=== PATIENT | female | born 1930 | race Caucasian/White ===

== ENCOUNTER 2017-11-23 17:54 | Inpatient (IN) | payer MEDICARE ==
[2017-11-23 18:49] LABS: ANION GAP 20 (6-14); BASO # 0.1 x10^3/uL (0.0-0.2); BASO % 0 % (0-3); BLOOD UREA NITROGEN 143 mg/dL (7-20); BUN/CREATININE RATIO 68 (6-20); CALCIUM 8.9 mg/dL (8.5-10.1); CARBON DIOXIDE 13 mmol/L (21-32); CHLORIDE 108 mmol/L (98-107); CREATININE 2.1 mg/dL (0.6-1.0); EOS % 0 % (0-3); GFR 22.4; GLUCOSE 175 mg/dL (70-99); HEMATOCRIT 22.5 % (36.0-47.0); HEMOGLOBIN 7.2 g/dL (12.0-15.5); LYMPH % 4 % (24-48); MEAN CORPUSCULAR HEMOGLOBIN 30 pg (25-35); MEAN CORPUSCULAR HGB CONC 32 g/dL (31-37); MEAN CORPUSCULAR VOLUME 94 fL (79-100); MONO # 0.9 x10^3/uL (0.0-1.1); MONO % 4 % (0-9); NEUT # 23.1 x10^3uL (1.8-7.7); NEUT % 92 % (31-73); PLATELET COUNT 284 x10^3/uL (140-400); POTASSIUM 4.9 mmol/L (3.5-5.1); SODIUM 141 mmol/L (136-145); WHITE BLOOD COUNT 25.2 x10^3/uL (4.0-11.0)
[2017-11-23 18:51] LABS: ADD MAN DIFF? YES
[2017-11-23 18:55] LABS: TROPONINI < 0.017 ng/mL (0.000-0.055)
[2017-11-23 19:03] LABS: ALBUMIN 3.1 g/dL (3.4-5.0); ALBUMIN/GLOBULIN RATIO 0.8 (1.0-1.7); ALK PHOS 188 U/L (46-116); ALT (SGPT) 65 U/L (14-59); AST (SGOT) 37 U/L (15-37); LIPASE 320 U/L (73-393); TOTAL BILIRUBIN 0.2 mg/dL (0.2-1.0); TOTAL PROTEIN 7.1 g/dL (6.4-8.2)
[2017-11-23] MEDS: ACETAMINOPHEN 500 MG TABLET PO (19:05)
[2017-11-23] MEDS: IBUPROFEN 800 MG TABLET. PO (19:06)
[2017-11-23] MEDS ORDERED: PIP/TAZO PER PHARMACY MC (19:15)
[2017-11-23] MEDS: PIPERACILLN-TAZO 2.25GM PREMIX 50 ML IV (19:42)
[2017-11-23 19:44] LABS: INFLUENZA A PATIENT NEGATIVE (NEGATIVE); INFLUENZA B PATIENT NEGATIVE (NEGATIVE); OBC FLU VALID
[2017-11-23 19:46] LABS: BILIRUBIN,URINE NEGATIVE (NEG); CLARITY,URINE CLEAR; COLOR,URINE YELLOW; GLUCOSE,URINE NEGATIVE (NEG); NITRITE,URINE NEGATIVE (NEG); PH,URINE 5.5; PROTEIN,URINE NEGATIVE (NEG-TRACE); UROBILINOGEN,URINE 0.2 mg/dL (0.2 mg/dL)
[2017-11-23 19:56] LABS: BACTERIA,URINE MANY /HPF (0-FEW); HYALINE CASTS, URINE MODERATE /HPF; RBC,URINE 0 /HPF (0-2); SQUAMOUS EPITHELIAL CELL,UR MOD /LPF; WBC,URINE 0 /HPF (0-4)
[2017-11-23 20:03] LABS: % BANDS 6 % (0-9); % MONOS 6 % (0-10); % SEGS 88 % (35-66); PLT ESTIMATE ADEQUATE (ADEQUATE); TOXIC VACUOLATION SLIGHT
[2017-11-23] MEDS: VANCOMYCIN 2 GM in IV DEXTROSE 5 %-0.2 % NACL 500 ML IV (20:25)
[2017-11-23] MEDS ORDERED: fentaNYL PF VIAL 100 MCG/2 ML VIAL IV (20:30)
[2017-11-23] MEDS ORDERED: ONDANSETRON PF 4 MG/2 ML VIAL. IV (20:30)
[2017-11-23 21:06] LABS: FECAL OB PT POSITIVE (NEG); NEG OBC FOB NEG; POS OBC FOB POS
[2017-11-23 23:22] LABS: LACTIC ACID 2.3 mmol/L (0.4-2.0)
[2017-11-24] MEDS: VANCOMYCIN PER PHARMACY MC (02:30)
[2017-11-24] MEDS: PIPERACILLIN/TAZOBACTAM 2.25 GM in IV NORMAL SALINE 50ML 50 ML IV ×3 (05:54→22:53)
[2017-11-24 08:51] LABS: ADD MAN DIFF? NO
[2017-11-24 08:54] LABS: BASO % 0 % (0-3); EOS % 0 % (0-3); LYMPH # 1.2 x10^3/uL (1.0-4.8); LYMPH % 6 % (24-48); MEAN CORPUSCULAR HEMOGLOBIN 31 pg (25-35); MEAN CORPUSCULAR HGB CONC 32 g/dL (31-37); MEAN CORPUSCULAR VOLUME 96 fL (79-100); MONO # 1.3 x10^3/uL (0.0-1.1); MONO % 7 % (0-9); NEUT # 16.7 x10^3uL (1.8-7.7); NEUT % 87 % (31-73); PLATELET COUNT 308 x10^3/uL (140-400); RED BLOOD COUNT 1.91 x10^6/uL (3.50-5.40); WHITE BLOOD COUNT 19.3 x10^3/uL (4.0-11.0)
[2017-11-24 08:58] LABS: HEMOGLOBIN 5.9 g/dL (12.0-15.5)
[2017-11-24 08:59] LABS: HEMATOCRIT 18.4 % (36.0-47.0)
[2017-11-24] MEDS: LACTOBACILLUS RHAMNOSUS GG 1 CAPSULE. PO ×2 (09:12→20:58)
[2017-11-24 09:24] LABS: TROPONINI 0.037 ng/mL (0.000-0.055)
[2017-11-24 09:25] LABS: LACTIC ACID 0.7 mmol/L (0.4-2.0)
[2017-11-24 09:39] LABS: ANION GAP 20 (6-14); BLOOD UREA NITROGEN 145 mg/dL (7-20); CALCIUM 8.8 mg/dL (8.5-10.1); CARBON DIOXIDE 13 mmol/L (21-32); CHLORIDE 111 mmol/L (98-107); CREATININE 2.2 mg/dL (0.6-1.0); GFR 21.2; GLUCOSE 137 mg/dL (70-99); POTASSIUM 4.3 mmol/L (3.5-5.1); SODIUM 144 mmol/L (136-145)
[2017-11-24] MEDS: ACETAMINOPHEN 325 MG TABLET. PO (11:43)
[2017-11-24 12:22] LABS: MRSA BY PCR Negative (Negative)
[2017-11-24 15:44] LABS: IMMEDIATE SPIN CROSSMATCH 1 2
[2017-11-24 15:53] LABS: RETIC COUNT 2.5 % (0.5-2.5)
[2017-11-24] MEDS: PANTOPRAZOLE IV PUSH 40 MG VIAL. IVP (18:04)
[2017-11-24 19:30] LABS: % SAT IRON 45 % (15-34); IRON,SERUM 110 ug/dL (50-170)
[2017-11-24 19:52] LABS: FOLATE 4.02 ng/ml (3.2-20.0)
[2017-11-24 19:52] LABS: VITAMIN-B12 394 pg/mL (247-911)
[2017-11-24 21:57] LABS: HEMATOCRIT 26.3 % (36.0-47.0); HEMOGLOBIN 8.8 g/dL (12.0-15.5); MEAN CORPUSCULAR HGB CONC 34 g/dL (31-37)
[2017-11-25] MEDS: PIPERACILLIN/TAZOBACTAM 2.25 GM in IV NORMAL SALINE 50ML 50 ML IV ×3 (05:18→22:06)
[2017-11-25 05:23] LABS: ADD MAN DIFF? NO
[2017-11-25 05:45] LABS: BASO % 0 % (0-3); EOS % 0 % (0-3); HEMATOCRIT 26.6 % (36.0-47.0); HEMOGLOBIN 8.9 g/dL (12.0-15.5); LYMPH # 1.4 x10^3/uL (1.0-4.8); LYMPH % 8 % (24-48); MEAN CORPUSCULAR HEMOGLOBIN 31 pg (25-35); MEAN CORPUSCULAR HGB CONC 34 g/dL (31-37); MEAN CORPUSCULAR VOLUME 92 fL (79-100); MONO # 1.4 x10^3/uL (0.0-1.1); MONO % 9 % (0-9); NEUT % 83 % (31-73); PLATELET COUNT 252 x10^3/uL (140-400); RED BLOOD COUNT 2.88 x10^6/uL (3.50-5.40); RED CELL DISTRIBUTION WIDTH 15.3 % (11.5-14.5); WHITE BLOOD COUNT 16.9 x10^3/uL (4.0-11.0)
[2017-11-25 06:19] LABS: ALBUMIN 2.8 g/dL (3.4-5.0); ALBUMIN/GLOBULIN RATIO 0.8 (1.0-1.7); ALK PHOS 165 U/L (46-116); ALT (SGPT) 117 U/L (14-59); ANION GAP 21 (6-14); AST (SGOT) 102 U/L (15-37); BLOOD UREA NITROGEN 129 mg/dL (7-20); BUN/CREATININE RATIO 59 (6-20); CALCIUM 8.3 mg/dL (8.5-10.1); CARBON DIOXIDE 14 mmol/L (21-32); CHLORIDE 110 mmol/L (98-107); CREATININE 2.2 mg/dL (0.6-1.0); GFR 21.2; GLUCOSE 106 mg/dL (70-99); POTASSIUM 3.4 mmol/L (3.5-5.1); SODIUM 145 mmol/L (136-145); TOTAL BILIRUBIN 0.4 mg/dL (0.2-1.0); TOTAL PROTEIN 6.4 g/dL (6.4-8.2)
[2017-11-25] MEDS ORDERED: PROPOFOL 20 ML IV (07:22)
[2017-11-25] MEDS: PANTOPRAZOLE IV PUSH 40 MG VIAL. IVP ×2 (09:26→21:50)
[2017-11-25] MEDS: LACTOBACILLUS RHAMNOSUS GG 1 CAPSULE. PO ×2 (09:26→21:49)
[2017-11-25] MEDS: IV RINGERS,LACTATED 1000ML 1,000 ML IV (09:30)
[2017-11-25] MEDS ORDERED: ONDANSETRON PF 4 MG/2 ML VIAL. IV (12:15)
[2017-11-25] MEDS ORDERED: MAGNESIUM SULFATE 2GM 50 ML IV (13:15)
[2017-11-25] MEDS: POTASSIUM ACETATE IV (15:24)
[2017-11-25] MEDS: 1/2 NORMAL SALINE IV (15:24)
[2017-11-25] MEDS: ACETAMINOPHEN 500 MG TABLET PO (15:32)
[2017-11-25] MEDS ORDERED: VANCOMYCIN 1.25 GM in IV DEXTROSE 5 %-0.45 % NACL 500 ML IV (20:00)
[2017-11-25] MEDS: AMOXICILLIN/K CLAV 500/125MG TABLET. PO (21:49)
[2017-11-26] MEDS: POTASSIUM ACETATE IV ×2 (04:19→17:49)
[2017-11-26] MEDS: 1/2 NORMAL SALINE IV ×2 (04:19→17:49)
[2017-11-26] MEDS: PIPERACILLIN/TAZOBACTAM 2.25 GM in IV NORMAL SALINE 50ML 50 ML IV (06:25)
[2017-11-26 07:08] LABS: MAGNESIUM 2.5 mg/dL (1.8-2.4)
[2017-11-26 07:10] LABS: HEMOGLOBIN 8.2 g/dL (12.0-15.5)
[2017-11-26 07:12] LABS: ALBUMIN 2.6 g/dL (3.4-5.0); ANION GAP 13 (6-14); BLOOD UREA NITROGEN 78 mg/dL (7-20); CALCIUM 8.3 mg/dL (8.5-10.1); CARBON DIOXIDE 21 mmol/L (21-32); CHLORIDE 116 mmol/L (98-107); CREATININE 1.6 mg/dL (0.6-1.0); GFR 30.6; GLUCOSE 100 mg/dL (70-99); PHOSPHORUS 3.7 mg/dL (2.6-4.7); POTASSIUM 3.4 mmol/L (3.5-5.1); SODIUM 150 mmol/L (136-145)
[2017-11-26] MEDS: ACETAMINOPHEN 500 MG TABLET PO ×2 (08:49→14:31)
[2017-11-26] MEDS: LACTOBACILLUS RHAMNOSUS GG 1 CAPSULE. PO ×2 (08:50→20:49)
[2017-11-26] MEDS: AMOXICILLIN/K CLAV 500/125MG TABLET. PO ×2 (08:50→20:49)
[2017-11-26] MEDS: PANTOPRAZOLE IV PUSH 40 MG VIAL. IVP ×2 (08:50→20:50)
[2017-11-26 14:19] LABS: ALBUMIN 2.5 g/dL (3.4-5.0); ALK PHOS 155 U/L (46-116); ALT (SGPT) 91 U/L (14-59); AST (SGOT) 58 U/L (15-37); DIRECT BILIRUBIN 0.2 mg/dL (0.0-0.2); TOTAL BILIRUBIN 0.4 mg/dL (0.2-1.0)
[2017-11-27] MEDS: POTASSIUM ACETATE IV ×2 (03:57→14:02)
[2017-11-27] MEDS: 1/2 NORMAL SALINE IV ×2 (03:57→14:02)
[2017-11-27 06:36] LABS: ALBUMIN 2.4 g/dL (3.4-5.0); ANION GAP 13 (6-14); BLOOD UREA NITROGEN 44 mg/dL (7-20); CALCIUM 8.1 mg/dL (8.5-10.1); CARBON DIOXIDE 22 mmol/L (21-32); CHLORIDE 110 mmol/L (98-107); CREATININE 1.1 mg/dL (0.6-1.0); GFR 47.2; GLUCOSE 93 mg/dL (70-99); PHOSPHORUS 3.1 mg/dL (2.6-4.7); POTASSIUM 3.4 mmol/L (3.5-5.1); SODIUM 145 mmol/L (136-145)
[2017-11-27] MEDS: LACTOBACILLUS RHAMNOSUS GG 1 CAPSULE. PO ×2 (08:01→20:12)
[2017-11-27] MEDS: PANTOPRAZOLE IV PUSH 40 MG VIAL. IVP ×2 (08:01→20:17)
[2017-11-27] MEDS: AMOXICILLIN/K CLAV 500/125MG TABLET. PO ×2 (08:01→20:12)
[2017-11-27] MEDS: ACETAMINOPHEN 500 MG TABLET PO (08:01)
[2017-11-27] MEDS: POTASSIUM CHLORIDE 20 MEQ/15 ML ORAL LIQUID. PEG (20:13)
[2017-11-28 05:13] LABS: ALBUMIN 2.7 g/dL (3.4-5.0); ANION GAP 12 (6-14); CALCIUM 8.9 mg/dL (8.5-10.1); CARBON DIOXIDE 27 mmol/L (21-32); CHLORIDE 109 mmol/L (98-107); GFR 52.7; GLUCOSE 120 mg/dL (70-99); PHOSPHORUS 2.8 mg/dL (2.6-4.7); POTASSIUM 3.6 mmol/L (3.5-5.1); SODIUM 148 mmol/L (136-145)
[2017-11-28 05:16] LABS: BLOOD UREA NITROGEN 21 mg/dL (7-20)
[2017-11-28 07:41] LABS: HEMATOCRIT 24.9 % (36.0-47.0); HEMOGLOBIN 8.5 g/dL (12.0-15.5); MEAN CORPUSCULAR HGB CONC 34 g/dL (31-37)
[2017-11-28] MEDS: POTASSIUM CHLORIDE 20 MEQ/15 ML ORAL LIQUID. PEG (08:07)
[2017-11-28] MEDS: LACTOBACILLUS RHAMNOSUS GG 1 CAPSULE. PO (08:08)
[2017-11-28] MEDS: AMOXICILLIN/K CLAV 500/125MG TABLET. PO (08:08)
[2017-11-28] MEDS: PANTOPRAZOLE IV PUSH 40 MG VIAL. IVP (08:09)
[2017-11-29] MEDS ORDERED: PANTOPRAZOLE 40 MG TABLET.DR. PO (07:30)
== END 2017-11-28 15:10 | DRG 871 ==
LOC: ER 17:54 → 5 NORTH 20:21
PROC: 0DD68ZX Extraction of Stomach, Via Natural or Artificial Opening Endoscopic, Diagnostic (ICD-10-PCS; principal; 2017-11-25 07:33)
PROC: 0DD58ZX Extraction of Esophagus, Via Natural or Artificial Opening Endoscopic, Diagnostic (ICD-10-PCS; 2017-11-25 07:33)
PROC: 30233N1 Transfusion of Nonautologous Red Blood Cells into Peripheral Vein, Percutaneous Approach (ICD-10-PCS; 2017-11-25 07:33)
DX: A41.9 Sepsis, unspecified organism (principal); G93.41 Metabolic encephalopathy; N17.9 Acute kidney failure, unspecified; G82.20 Paraplegia, unspecified; K26.9 Duodenal ulcer, unspecified as acute or chronic, without hemorrhage or perforation; I50.32 Chronic diastolic (congestive) heart failure; D62 Acute posthemorrhagic anemia; I13.0 Hypertensive heart and chronic kidney disease with heart failure and stage 1 through stage 4 chronic kidney disease, or unspecified chronic kidney disease; N39.0 Urinary tract infection, site not specified; E86.0 Dehydration; K29.70 Gastritis, unspecified, without bleeding; K44.9 Diaphragmatic hernia without obstruction or gangrene; B96.1 Klebsiella pneumoniae [K. pneumoniae] as the cause of diseases classified elsewhere; F03.90 Unspecified dementia, unspecified severity, without behavioral disturbance, psychotic disturbance, mood disturbance, and anxiety; K21.0 Gastro-esophageal reflux disease with esophagitis; K22.70 Barrett's esophagus without dysplasia; F32.9 Major depressive disorder, single episode, unspecified; G83.9 Paralytic syndrome, unspecified; M19.90 Unspecified osteoarthritis, unspecified site; M41.9 Scoliosis, unspecified; N18.9 Chronic kidney disease, unspecified; Z66 Do not resuscitate; Z83.3 Family history of diabetes mellitus; Z99.3 Dependence on wheelchair
CPT/HCPCS: 36415; 36430; 70450; 71045; 76770; 80048; 80053; 80069; 80076; 81001; 82274; 82607; 82746; 83540; 83550; 83605; 83690; 83735; 84484; 85007; 85014; 85018; 85025; 85045; 86850; 86900; 86901; 86920; 87040; 87086; 87186; 87641; 87804; 87804-59; 88305; 88342; 93005; 93306; 96365; 96368; 99285-25; C9113; J2543; J2704; J3370; P9016

== ENCOUNTER 2020-05-19 00:58 | Inpatient (IN) | payer MEDICARE, MEDICAID ==
[~2020-05-19] VITALS: Ht 157.5 cm; Wt 95.2 kg
[2020-05-19] VITALS (7 sets, daily range): BP systolic 120–152; BP diastolic 74–80
[~2020-05-19 00:58] MED LIST: ACET325T9 PO; ACET325T9 RC; ASPI-630 PO; BACL10TA PO; BIMA2.5D EACHEYE; Baclofen PO; CARB200T PO; CLON0.1T PO; CLON0.1T12 PO; DEXT15DR5 EACHEYE; DOCU-109 PO; DOCU100C28 PO; FAMO-63 PO; FERR325T14 PO; FERR325T72 PO; FURO40TA4 PO; IBUP100O25 PO; IPRA3AMP29 NEB; LEVE250T30 PO; LEVE500T56 PO; LOSA1TAB22 PO; METO25TA4 PO; MULT-445 PO; ONDA4TAB10 PO; ONDA4TAB7 PO; POLY17PO29 PO; POTA10TA12 PO; RANI150C PO; TRAZ-118 PO
--- NOTE | 2020-05-19 01:13 | PHYS DOC ---
Past Medical History Past Medical History: Anemia, Anxiety, Arthritis, CHF, Constipation, COPD, Depression, GERD, Hypertension, Seizure Additional Past Medical Histor: spastic paralysis HEMIPLEGIA, HEART FAILURE, DYSPHAGIA, OSTEOARTHRITIS Past Surgical History: Other Additional Past Surgical Histo: UNKNOWN Smoking Status: Never Smoker Alcohol Use: None Drug Use: None General Adult EDM: Chief Complaint: UPPER EXTREMITY PAIN HPI: HPI: Patient is a 89 year old female who presents to the ED with right shoulder pain. Unkonwn mechanism according to patient and EMS but Xray obtained at [facility] and found to have a shoulder dislocation on the right. Patient has pain associated with the right shoulder and has limited range of motion. She denies any other complaints at this time. Review of Systems: Review of Systems: Constitutional: Denies fever or chills. [] Eyes: Denies change in visual acuity. [] HENT: Denies nasal congestion or sore throat. [] Respiratory: Denies cough or shortness of breath. [] Cardiovascular: Denies chest pain or edema. [] GI: Denies abdominal pain, nausea, vomiting, bloody stools or diarrhea. [] : Denies dysuria. [] Musculoskeletal: Denies back pain or joint pain. [] Integument: Denies rash. [] Neurologic: Denies headache, focal weakness or sensory changes. [] Endocrine: Denies polyuria or polydipsia. [] Lymphatic: Denies swollen glands. [] Psychiatric: Denies depression or anxiety. [] Heart Score: Risk Factors: Risk Factors: DM, Current or recent (<one month) smoker, HTN, HLP, family history of CAD, obesity. 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 HENT: Normocephalic, atraumatic, bilateral external ears normal, oropharynx moist, no oral exudates, nose normal. [] Eyes: PERRLA, EOMI, conjunctiva normal, no discharge. [] Neck: Normal range of motion, no tenderness, supple, no stridor. [] Cardiovascular:Heart rate regular rhythm, no murmur [] Lungs & Thorax: Bilateral breath sounds clear to auscultation [] Abdomen: Bowel sounds normal, soft, no tenderness, no masses, no pulsatile masses. [] Skin: Warm, dry, no erythema, no rash. [] Back: No tenderness, no CVA tenderness. [] Extremities: Range of motion limited in the right shoulder. Mild deformity and tenderness palpation over the right deltoid. Distal 2+ pulses. EKG: EKG: [] Radiology/Procedures: Radiology/Procedures: [] Course & Med Decision Making: Course & Med Decision Making Pertinent Labs and Imaging studies reviewed. (See chart for details) [] I performed an x-ray here to confirm dislocation. The shoulder is certainly dislocated and the patient has severe pain make me think this is acute. Unknown how this occurred. We will contact the patient's power of mergers and acquisitions attorney to get consent for sedation and reduction of the shoulder. I attempted shoulder reduction in the ER with moderate sedation with propofol. Unfortunately we are unable to reduce the shoulder. I used traction countertraction method. Patient did have adequate sedation. Unclear reason why the shoulder would not be reduced. Starting to question whether there is a chronic component to this dislocation but cannot verify that. Patient will need to be placed in observation and have an orthopedic consultation in the morning. Bahman Disclaimer: Bahman Disclaimer: This electronic medical record was generated, in whole or in part, using a voice recognition dictation system. Departure Departure Impression: Primary Impression: Shoulder dislocation Disposition: ADMITTED INPATIENT Condition: STABLE Referrals: SONI MAYS (PCP) Justicifation of Admission Dx: Justifications for Admission: Justification of Admission Dx: Yes Comments: shoulder dislocation unable to be reduced by ED physician. Procedural Sedation Proc Sed Indication:shoulder reduction Consent: I have discussed with the patient and/or the patient parts counter representative the indication, alternatives, and the possible risks and /or complications of the planned procedure and the anesthesia methods. The patient and/or patient parts counter representative appear to understand and agree to proceed. Pre-Sedation Documentation and Exam: See main note. History and physical performed immediately prior to procedure. Patient with a shoulder deformity on the right. Lungs clear to auscultation bilaterally. Heart regular rate and rhythm. Airway Assessment: normal. Prior History of Anesthesia Complications: none. ASA Classification: 3 Sedation/ Anesthesia Plan: Propofol moderate sedation Medications Used: see nursing notes. Monitoring and Safety: The patient was placed on a cardiac monitor technician and vital signs, pulse oximetry and level of consciousness were continuously evaluated throughout the procedure. The patient was closely monitored until recovery from the medications was complete and the patient had returned to baseline status. Respiratory therapy was on standby at all times during the procedure. (The following sections must be completed) Post-Sedation Vital Signs: Heart rate 104 blood pressure 159/78, respirations 17 Post-Sedation Exam: Patient is awake and alert. Lungs clear to auscultation bilaterally. Complications: none. Vital Signs Vital Signs Date Time Temp Pulse Resp B/P (MAP) Pulse Ox O2 Delivery O2 Flow Rate FiO2 05/19/20 01:15 98.7 108 20 140/83 (102) 96 Room Air 98.7 YONATHAN OCASIO DO May 19, 2020 01:13
[2020-05-19] MEDS ORDERED: fentaNYL PF VIAL 100 MCG/2 ML VIAL IM ONE (01:15)
--- NOTE | 2020-05-19 01:36 | RAD ---
Right shoulder 2 views: Reason for examination: Dislocation. There is dislocation of the humeral head anteriorly and inferiorly from the glenoid. No acute fracture is apparent. No abnormal periosteal reaction is seen. IMPRESSION: Anterior dislocation of the right humeral head from the glenoid with no apparent fractures seen. Electronically signed by: Alfreda Celeste MD (05/19/2020 1:33 AM) [id number]
[2020-05-19] MEDS ORDERED: PROPOFOL 10 MG/ML (20ML) VIAL. IV ONE (01:45)
--- NOTE | 2020-05-19 02:22 | RAD ---
Right shoulder single AP view at 0205: Reason for examination: Post reduction of anterior dislocation. Comparison is made to previous study dated 05/19/2020 at 0110. There continues to be anterior dislocation of the humeral head from the glenoid. No acute fracture is seen. IMPRESSION: Humeral head remains dislocated anterior and inferiorly from the glenoid. Electronically signed by: Alfreda Celeste MD (05/19/2020 2:19 AM) [id number]
[2020-05-19] MEDS ORDERED: fentaNYL PF VIAL 100 MCG/2 ML VIAL IVP ONE (02:30)
[2020-05-19] MEDS ORDERED: fentaNYL PF VIAL 100 MCG/2 ML VIAL IV PRN (02:30)
[2020-05-19 02:47] LABS: BASO % 0 % (0-3); EOS % 0 % (0-3); HEMATOCRIT 38.1 % (36.0-47.0); HEMOGLOBIN 12.9 g/dL (12.0-15.5); LYMPH # 0.5 x10^3/uL (1.0-4.8); LYMPH % 5 % (24-48); MEAN CORPUSCULAR HEMOGLOBIN 31 pg (25-35); MEAN CORPUSCULAR HGB CONC 34 g/dL (31-37); MEAN CORPUSCULAR VOLUME 92 fL (79-100); MONO # 0.6 x10^3/uL (0.0-1.1); MONO % 6 % (0-9); NEUT % 89 % (31-73); PLATELET COUNT 178 x10^3/uL (140-400); RED BLOOD COUNT 4.16 x10^6/uL (3.50-5.40); RED CELL DISTRIBUTION WIDTH 14.4 % (11.5-14.5)
[2020-05-19 02:57] LABS: CALCIUM 8.8 mg/dL (8.5-10.1); CREATININE 1.4 mg/dL (0.6-1.0); GFR 35.5; POTASSIUM 3.8 mmol/L (3.5-5.1)
[2020-05-19 03:03] LABS: ALBUMIN 3.4 g/dL (3.4-5.0); ALBUMIN/GLOBULIN RATIO 0.8 (1.0-1.7); TOTAL BILIRUBIN 0.5 mg/dL (0.2-1.0); TOTAL PROTEIN 7.7 g/dL (6.4-8.2)
--- NOTE | 2020-05-19 04:10 | NUR ---
The patient, OBDULIA HERNÁNDEZ, 89 y/o, F admitted by STEFAN DORADO MD, was given written information regarding hospital policies, unit procedures and contact persons. patient arrived to room via ED bed assisted by ED staff member. Valuables were checked and noted. patient is currently laying in bed with eyes closed. patient states that her pain is about a 2 when not moving but will increase with movement. Patient denies need for pain medication at this time. Patient denies any other needs at this time. This RN will continue to monitor the patient at this time.
[2020-05-19 05:01] LABS: % BANDS 3 % (0-9); % LYMPHS 2 % (24-48); % MONOS 4 % (0-10); % SEGS 91 % (35-66)
[2020-05-19 05:02] LABS: PLT ESTIMATE ADEQUATE (ADEQUATE)
[2020-05-19] MEDS ORDERED: FERR325T14 PO (05:17)
[2020-05-19] MEDS ORDERED: FURO40TA4 PO (05:17)
[2020-05-19] MEDS ORDERED: POLYETHYLENE GLYCOL 3350 17 GM PACKET. PO PRN (06:15)
[2020-05-19] MEDS ORDERED: ACETAMINOPHEN 325 MG TABLET. PO PRN (06:15)
[2020-05-19] MEDS ORDERED: ONDANSETRON PF 4 MG/2 ML VIAL. IV PRN (06:15)
[2020-05-19] MEDS: carBAMazepine 200 MG TABLET PO SCH ×3 (08:30→21:48)
[2020-05-19] MEDS: levETIRAcetam 250 MG TABLET PO SCH ×2 (08:31→21:48)
[2020-05-19] MEDS: POLYVINYL ALCOHOL 1.4% OPHTH SOLUTION 15ML BOTTLE. OU SCH ×3 (08:31→21:48)
[2020-05-19] MEDS: MULTIVITAMIN with MINERAL TABLET. PO SCH (09:00)
--- NOTE | 2020-05-19 12:34 | PDOC ---
[facility] PROGRESS NOTE Chief Complaint Chief Complaint shoulder dislocation History of Present Illness History of Present Illness shoulder dislocation unable to be reduced by ED physician Aniket 19 pending COPD Hypertension Anemia CHF Osteoarthritis GERD Anxiety Depression Seizures 05/19/20 Patient seen and examined, appears confused Chart reviewed Discussed with RN Vitals/I&O Vitals/I&O: Vital Signs Date Time Temp Pulse Resp B/P (MAP) Pulse Ox O2 Delivery O2 Flow Rate FiO2 05/19/20 11:19 97.1 95 17 120/80 (93) 94 Room Air 97.1 05/19/20 02:15 3.0 I & O 05/18/20 05/18/20 05/19/20 15:00 23:00 07:00 Intake Total 0 ml Output Total 0 ml Balance 0 ml Physical Exam General: mild distress, Other (appears confused ) Heart: Regular rate, Normal S1, Normal S2 Lungs: Clear Abdomen: Soft, No tenderness Extremities: No edema, Normal pulses Skin: No rashes, No significant lesion Labs Labs: Laboratory Tests Test 05/19/20 02:36 05/19/20 03:08 White Blood Count 10.0 x10^3/uL (4.0-11.0) Red Blood Count 4.16 x10^6/uL (3.50-5.40) Hemoglobin 12.9 g/dL (12.0-15.5) Hematocrit 38.1 % (36.0-47.0) Mean Corpuscular Volume 92 fL (79-100) Mean Corpuscular Hemoglobin 31 pg (25-35) Mean Corpuscular Hemoglobin Concent 34 g/dL (31-37) Red Cell Distribution Width 14.4 % (11.5-14.5) Platelet Count 178 x10^3/uL (140-400) Neutrophils (%) (Auto) 89 % (31-73) Lymphocytes (%) (Auto) 5 % (24-48) Monocytes (%) (Auto) 6 % (0-9) Eosinophils (%) (Auto) 0 % (0-3) Basophils (%) (Auto) 0 % (0-3) Neutrophils # (Auto) 9.0 x10^3/uL (1.8-7.7) Lymphocytes # (Auto) 0.5 x10^3/uL (1.0-4.8) Monocytes # (Auto) 0.6 x10^3/uL (0.0-1.1) Eosinophils # (Auto) 0.0 x10^3/uL (0.0-0.7) Basophils # (Auto) 0.0 x10^3/uL (0.0-0.2) Segmented Neutrophils % 91 % (35-66) Band Neutrophils % 3 % (0-9) Lymphocytes % 2 % (24-48) Monocytes % 4 % (0-10) Platelet Estimate Adequate (ADEQUATE) Prothrombin Time 14.0 SEC (11.7-14.0) Prothromb Time International Ratio 1.1 (0.8-1.1) Activated Partial Thromboplast Time 48 SEC (24-38) Sodium Level 142 mmol/L (136-145) Potassium Level 3.8 mmol/L (3.5-5.1) Chloride Level 104 mmol/L (98-107) Carbon Dioxide Level 25 mmol/L (21-32) Anion Gap 13 (6-14) Blood Urea Nitrogen 23 mg/dL (7-20) Creatinine 1.4 mg/dL (0.6-1.0) Estimated GFR (Cockcroft-Gault) 35.5 BUN/Creatinine Ratio 16 (6-20) Glucose Level 153 mg/dL (70-99) Calcium Level 8.8 mg/dL (8.5-10.1) Total Bilirubin 0.5 mg/dL (0.2-1.0) Aspartate Amino Transf (AST/SGOT) 63 U/L (15-37) Alanine Aminotransferase (ALT/SGPT) 65 U/L (14-59) Alkaline Phosphatase 161 U/L (46-116) Total Protein 7.7 g/dL (6.4-8.2) Albumin 3.4 g/dL (3.4-5.0) Albumin/Globulin Ratio 0.8 (1.0-1.7) SARS-CoV-2 Antigen (Rapid) Negative (NEGATIVE) Assessment and Plan Assessmemt and Plan Problems Medical Problems: (1) Shoulder dislocation Status: Acute Assessment: shoulder dislocation unable to be reduced by ED physician Covid 19 pending COPD Hypertension Anemia CHF Osteoarthritis GERD Anxiety Depression Seizures Plan: Ortho consulted Continue current care Fentanyl PRN for pain Continue home meds DVT prophylaxis DNR Comment Review of Relevant I have reviewed the following items frederic (where applicable) has been applied. Medications: Current Medications Medications (Trade) Dose Ordered Sig/Cherise Route PRN Reason Start Time Stop Time Status Last Admin Dose Admin Fentanyl Citrate (Fentanyl 2ml Vial) 50 mcg 1X ONCE IM 05/19/20 01:15 05/19/20 01:17 DC 05/19/20 01:42 Propofol (Diprivan) 200 mg 1X ONCE IV 05/19/20 01:45 05/19/20 01:46 DC 05/19/20 02:28 Fentanyl Citrate (Fentanyl 2ml Vial) 50 mcg 1X ONCE IVP 05/19/20 02:30 05/19/20 02:55 DC 05/19/20 02:27 Carbamazepine (TEGretol) 100 mg TID PO 05/19/20 09:00 05/19/20 08:30 Levetiracetam (Keppra) 250 mg BID PO 05/19/20 09:00 05/19/20 08:31 Artificial Tears (Artificial Tears) 1 drop TID OU 05/19/20 09:00 05/19/20 08:31 Justicifation of Admission Dx: Justifications for Admission: Justification of Admission Dx: Yes BRITNI MARTINEZ III DO May 19, 2020 12:34
--- NOTE | 2020-05-19 12:48 | HP ---
ADMIT DATE: 05/19/2020 CHIEF COMPLAINT: Upper extremity pain. HISTORY OF PRESENT ILLNESS: The patient is a pleasant 89-year-old female who presents to the ER with right shoulder pain. Unknown mechanism of injury. [facility] that [facility] in the prison found that she had a right shoulder dislocation. I discussed the case with ER physician. We have admitted the patient. We are going to be consulting Orthopedics. PAST MEDICAL HISTORY: Anemia, anxiety, arthritis, CHF, constipation, COPD, GERD, depression, hypertension, seizures, osteoarthritis, hemiplegia, heart failure. ALLERGIES: GRAPEFRUITS, [place], [place], AND ORANGE. FAMILY HISTORY: Coronary artery disease. SOCIAL HISTORY: She lives in a prison, does not drink, smoke or take drugs. MEDICATIONS: Reviewed, please refer to the MRAD. REVIEW OF SYSTEMS: GENERAL: No history of weight change, weakness or fevers. SKIN: No bruising, hair changes or rashes. EYES: No blurred, double or loss of vision. NOSE AND THROAT: No history of nosebleeds, hoarseness or sore throat. HEART: No history of palpitations, chest pain or shortness of breath on exertion. LUNGS: Denies cough, hemoptysis, wheezing or shortness of breath. GASTROINTESTINAL: Denies changes in appetite, nausea, vomiting, diarrhea or constipation. GENITOURINARY: No history of frequency, urgency, hesitancy or nocturia. NEUROLOGIC: Denies history of numbness, tingling, tremor or weakness. PSYCHIATRIC: No history of panic, anxiety or depression. ENDOCRINE: No history of heat or cold intolerance, polyuria or polydipsia. EXTREMITIES: She complains of right shoulder pain. PHYSICAL EXAMINATION: VITALS: Within normal limits and are stable. GENERAL: No apparent distress. Alert and oriented. HEENT: Normal cephalic atraumatic, external auditory canals are patent EYES: Extraocular muscles are intact, pupils are equally round and reactive to light and accommodation MUSCULOSKELETAL: Well developed, well nourished, good range of motion ENDOCRINE: No thyromegaly was palpated LYMPHATICS: No cervical chain or axillary nodes were noted HEMATOPOIETIC: No bruising NECK: Supple, no JVD, no thyromegaly was noted. LUNGS: Clear to auscultation in all lung dickey without rhonchi or wheezing. HEART: RRR, S1, S2 present. Peripheral pulses intact, no obvious murmurs were noted. ABDOMEN: Soft, nontender. Positive bowel sounds no organomegaly, normal bowel sounds. EXTREMITIES: Without any cyanosis, clubbing, or edema. Pedal pulses intact, Homans sign is negative. NEUROLOGIC: Normal speech, normal tone. A & O x3, moves all extremities, no obvious focal deficits. PSYCHIATRIC: Normal affect, normal mood. Stable. SKIN: No ulcerations or rashes, good skin turgor, no jaundice. VASCULAR: Good capillary refill, neurovascular bundle appears to be intact. ASSESSMENT AND PLAN: Right shoulder dislocation. The patient has been admitted. Consult Orthopedics. Home meds, deep venous thrombosis prophylaxis. Full COVID, rule out COVID-19. BRITNI MARTINEZ DO DR: JEFF/ramakrishna JOB#: [id number] / [id number]
--- NOTE | 2020-05-19 17:35 | NUR ---
SW following. Reviewed chart and spoke with RN and CM. Pt on room air. SW attempted to call into pt's room, no answer. Pt on IV Fentanyl. Pt has a rehab screen. LVM for rehab to coordinate care. SW to follow.
[2020-05-19] MEDS: LATANOPROST 0.005% OPHTH SOLUTION 2.5ML BOTTLE. OU SCH (21:48)
[2020-05-20 02:53] VITALS: BP 151/79
[2020-05-20] MEDS ORDERED: IV RINGERS,LACTATED 1000ML 1,000 ML IV SCH (07:06)
[2020-05-20 07:14] VITALS: BP 140/62
[2020-05-20] MEDS ORDERED: MORPHINE SULFATE 2 MG/ML VIAL. IVP PRN (07:15)
[2020-05-20] MEDS ORDERED: fentaNYL PF VIAL 100 MCG/2 ML VIAL IVP PRN ×2 (07:15)
[2020-05-20] MEDS ORDERED: PROCHLORPERAZINE 10 MG/2 ML VIAL. IVP PRN (07:15)
[2020-05-20] MEDS ORDERED: LIDOCAINE 1% PF 2 ML VIAL. ID PRN (07:15)
[2020-05-20] MEDS ORDERED: HYDROmorphone 2 MG/ML VIAL IVP PRN (07:15)
[2020-05-20] MEDS ORDERED: ONDANSETRON PF 4 MG/2 ML VIAL. IVP PRN (07:15)
[2020-05-20] MEDS: levETIRAcetam 250 MG TABLET PO SCH ×3 (09:00→21:00)
[2020-05-20] MEDS: carBAMazepine 200 MG TABLET PO SCH ×3 (09:00→21:00)
[2020-05-20] MEDS: MULTIVITAMIN with MINERAL TABLET. PO SCH (09:00)
--- NOTE | 2020-05-20 09:59 | NUR ---
SW following. Spoke with RN and reviewed chart. Pt from [facility], , (fax). IVETH LVM for Roseanna the SW Director to coordinate care. PT saw this pt and pt at baseline. Pt on room air and IV pain medications. Pt to return to LTC when stable. SW to follow.
[2020-05-20] MEDS: POLYVINYL ALCOHOL 1.4% OPHTH SOLUTION 15ML BOTTLE. OU SCH ×3 (10:10→21:00)
[2020-05-20] MEDS: LATANOPROST 0.005% OPHTH SOLUTION 2.5ML BOTTLE. OU SCH (10:10)
[2020-05-20 11:07] VITALS: BP 158/59
--- NOTE | 2020-05-20 11:23 | PDOC ---
[facility] PROGRESS NOTE Chief Complaint Chief Complaint Shoulder dislocation History of Present Illness History of Present Illness 05/20/2020 Patient seen and examined Chart reviewed Discussed with RN 05/19/20 Patient seen and examined, appears confused Chart reviewed Discussed with RN Shoulder dislocation unable to be reduced by ED physician Aniket Moran pending COPD Hypertension Anemia CHF Osteoarthritis GERD Anxiety Depression Seizures Vitals/I&O Vitals/I&O: Vital Signs Date Time Temp Pulse Resp B/P (MAP) Pulse Ox O2 Delivery O2 Flow Rate FiO2 05/20/20 11:07 97.3 100 21 158/59 (92) 99 Nasal Cannula 2.0 97.3 I & O 05/19/20 05/19/20 05/20/20 14:59 22:59 06:59 Intake Total 0 ml Output Total 0 ml Balance 0 ml 0 ml Physical Exam General: Alert, Oriented X3, mild distress Heart: Regular rate, Normal S1, Normal S2 Lungs: Clear Abdomen: Soft, No tenderness Extremities: No edema, Normal pulses Skin: No rashes, No significant lesion Assessment and Plan Assessmemt and Plan Problems Medical Problems: (1) Shoulder dislocation Status: Acute Shoulder dislocation unable to be reduced by ED physician Aniket Moran pending COPD Hypertension Anemia CHF Osteoarthritis GERD Anxiety Depression Seizures Plan Consult cardiology for new SVT Trend Labs DVT prophylaxis IV Antibiotics Going to the OR soon Continue O2 via Nasal Cannula Follow up with SW for Rehab screen Appreciate subspecialist input Comment Review of Relevant I have reviewed the following items frederic (where applicable) has been applied. Medications: Current Medications Medications (Trade) Dose Ordered Sig/Cherise Route PRN Reason Start Time Stop Time Status Last Admin Dose Admin Latanoprost (Xalatan) 1 drop QHS OU 05/19/20 21:00 05/20/20 10:10 Justicifation of Admission Dx: Justifications for Admission: Justification of Admission Dx: Yes BRITNI MARTINEZ III DO May 20, 2020 11:23
--- NOTE | 2020-05-20 12:01 | PDOC2 ---
JARON LOPEZ BOILERMAKER HELPER 05/20/20 1201: CARDIAC CONSULT DATE OF CONSULT Date of Consult DATE: 05/20/20 TIME: 11:54 REASON FOR CONSULT Reason for Consult: Arrhythmias REFERRING PHYSICIAN Referring Physician: Dr. Benítez SOURCE Source: Chart review, Patient HISTORY OF PRESENT ILLNESS HISTORY OF PRESENT ILLNESS This is an 89 yo female who presented from nursing facility secondary to right shoulder pain. Further imaging notable for shoulder dislocation on the right. She was sent to the ED for further evaluation and treatment. Tele noted with tachyarrhythmias this morning, which prompted this consult. Patient denies any chest pain, palpitations, dizziness, diaphoresis, or nausea/vomiting. Has limited ROM of right shoulder. PAST MEDICAL HISTORY Past Medical History Cardiovascular: CHF, HTN CENTRAL NERVOUS SYSTEM: Dementia, Seizure, Other (spastic paralysis / hemiplegia) GI: GERD (with Nice's esophagus and hiatal hernia) Psych: Anxiety, Depression Renal/: Chronic renal insuff PAST SURGICAL HISTORY Past Surgical History Other (foot surgery as a child) FAMILY HISTORY Family History: Family History Unknown SOCIAL HISTORY Smoke: No ALCOHOL: none Drugs: None Lives: [facility] CURRENT MEDICATIONS CURRENT MEDICATIONS Current Medications Medications (Trade) Dose Ordered Sig/Cherise Route PRN Reason Start Time Stop Time Status Last Admin Dose Admin Latanoprost (Xalatan) 1 drop QHS OU 05/19/20 21:00 05/20/20 10:10 ALLERGIES ALLERGIES: Coded Allergies: grapefruit (Verified Allergy, Intermediate, Rash, 05/20/20) lemon (Verified Allergy, Intermediate, 05/20/20) [place] (Verified Allergy, Intermediate, Rash, 05/20/20) orange flavor (Verified Allergy, Intermediate, 11/25/17) orange juice (Verified Allergy, Intermediate, 05/20/20) ROS Review of System 14 point ROS conducted with pertinent positives noted above in HPI although limited due to mentation PHYSICAL EXAM PHYSICAL EXAM General: alert, Cooperative, No acute distress HEENT: Atraumatic Lungs: Other (diminished anteriorly) Heart: Normal S1, Normal S2, Other (distant tones) Abdomen: Soft, Other (obese abdomen) Skin: No rashes Neuro: Normal speech Psych/Mental Status: Mood NL MUSCULOSKELETAL: Osteoarthritic changes both hands, Other (malformed feet) VITALS/I&O VITALS/I&O: Vital Signs Date Time Temp Pulse Resp B/P (MAP) Pulse Ox O2 Delivery O2 Flow Rate FiO2 05/20/20 11:07 97.3 100 21 158/59 (92) 99 Nasal Cannula 2.0 97.3 I & O 05/19/20 05/19/20 05/20/20 15:00 23:00 07:00 Intake Total 0 ml Output Total 0 ml Balance 0 ml 0 ml ECHOCARDIOGRAM ECHOCARDIOGRAM <Conclusion> Technically difficult study. The left ventricle is normal size. The left ventricular systolic function is at the lower limits of normal. The ejection fraction is estimated at 50%. There is no significant aortic valvular stenosis. Doppler and Color Flow revealed no significant aortic regurgitation. Doppler and Color-flow revealed trace mitral regurgitation. Doppler and Color Flow revealed trace tricuspid regurgitation. The PA pressure was estimated at 31 mmHg. DATE: 07/20/18 1100 STRESS TEST STRESS TEST Conclusion 1. Regadenoson cardioisotope stress test showed moderate sized lateral wall infarct with small amount of donna-infarct ischemia. 2. Normal left ventricular systolic function with ejection fraction calculated at 57%. 3. Low risk for cardiac events. DATE: 08/22/18 1054 ASSESSMENT/PLAN ASSESSMENT/PLAN 1. Right shoulder pain, dislocation 2. Arrhythmia; tele shows PAFIB versus bursts of PSVT. Presently SR. No prior h/o AFIB per [facility] records 3. Chronic diastolic CHF;clinically compensated 4. Hypertension; intermittently elevated 5. CKD ;Cr stable 6. Elevated LFTs 7. H/o seizures 8. Prior CVA Recommendations TSH level Echo to assess LV Add metoprolol for rate control Discontinue clonidine Add ASA therapy ATUL HERNANDEZ MD 05/20/20 1645: CARDIAC CONSULT ASSESSMENT/PLAN ASSESSMENT/PLAN Patient seen and evaluated Discussed with our nurse practitioner and agree with her assessment and plan. Right shoulder apparent dislocation. As per the orthopedic surgery service. Arrhythmias. Probable bursts of paroxysmal atrial fibrillation. Starting beta- blockers for rate control. We will check a TSH level. Echo to evaluate LV function Compensated diastolic heart failure. Medications as above. Echo. Hypertension. Relatively stable but will continue to monitor. Chronic kidney disease. Monitoring lab. Thank you for allowing us to participate in the care of your patient. JARON LOPEZ APRN May 20, 2020 12:01 ATUL HERNANDEZ MD May 20, 2020 16:45
[2020-05-20] MEDS ORDERED: METOPROLOL TARTRATE 5 MG/5 ML VIAL. IVP ONE (12:30)
[2020-05-20] MEDS ORDERED: LIDOCAINE 2% PF 5 ML VIAL. ONE (13:20)
[2020-05-20] MEDS ORDERED: PROPOFOL 10 MG/ML (20ML) VIAL. IV ONE (13:20)
[2020-05-20] MEDS ORDERED: SUCCINYLCHOLINE 200 MG/10 ML VIAL. ONE (13:20)
[2020-05-20 15:18] VITALS: BP 139/65
[2020-05-20] MEDS: ASPIRIN ENTERIC COATED 81 MG TABLET.DR. PO SCH (15:30)
[2020-05-20] MEDS ORDERED: fentaNYL PF VIAL 100 MCG/2 ML VIAL ONE (16:41)
[2020-05-20] MEDS ORDERED: ONDANSETRON PF 4 MG/2 ML VIAL. ONE (16:52)
[2020-05-20] MEDS ORDERED: PHENYLEPHRINE in 0.9% NACL PF 1 MG/10 ML SYRINGE. IV ONE (16:55)
--- NOTE | 2020-05-20 18:17 | RAD ---
Exam: Fluoroscopy images INDICATION: Shoulder dislocation, postreduction TECHNIQUE: Acidizer images were submitted for interpretation Comparisons: Radiograph 05/19/2020 FINDINGS: 3 images were submitted for interpretation. Images redemonstrate dislocation of the right shoulder Fluoroscopy time: 0.3 minutes IMPRESSION: Fluoroscopic images as described above. See procedural note for further details. Electronically signed by: Lana Mitchell MD (05/20/2020 6:13 PM) [id number]
--- NOTE | 2020-05-20 18:43 | PDOC4 ---
Operative Note Operative Note Date of surgery: 05/20/2020 Preoperative diagnosis: Right shoulder anterior dislocation Postoperative diagnosis: Chronic right shoulder anterior dislocation with recent exacerbation of pain Operative procedure: Attempted closed reduction right shoulder under anesthesia with examination under anesthesia Surgeon: Yisel Anesthesia: General Complications: None Operative indications: Please see my detailed dictated orthopedic consultation for detailed operative indications Operative text: Patient was identified procedure verified patient placed in the supine position on the operating table. After adequate amounts of general anesthesia were administered the right upper extremity underwent attempted reduction with traction countertraction under fluoroscopic guidance and was noted to have extremely tight tissues and the appearance of a chronic anterior dislocation as I was unable to really get the shoulder significantly close to reduction with any type of standard maneuvers with traction countertraction or manipulation. I checked this under multiple degrees of manipulation under fluoroscopic guidance and with posterior lateral application of force being likewise unsuccessful. Despite our previous plans of potential open reduction or even reverse shoulder arthroplasty I communicated with the family that based on her appearance of a chronic dislocation of her right shoulder with likely exacerbation of her pain and her other medical complications including groin fold area infection I think that she would be poorly served by attempts at operative intervention at this point. I had a detailed discussion with her daughter about this postoperatively and we will continue nonoperative management symptomatically with use of her shoulder as tolerated. She was returned to recovery room in stable condition having tolerated the procedure well SARAH BETH FERNANDEZ MD May 20, 2020 18:43
--- NOTE | 2020-05-20 20:08 | CONS ---
DATE OF CONSULTATION: 05/20/2020 REQUESTING PHYSICIAN: Austyn Perez MD REASON FOR CONSULTATION: Right shoulder pain and instability. HISTORY OF PRESENT ILLNESS: The patient is an 89-year-old female who has a history of spastic paralysis since and initially according to her daughter walked for the first several decades of her life and developed arthritis later in life and really became immobile most recently and now she transfers with a lift from bed to chair, but does use her arms to feed herself and for other basic tasks and unfortunately reported shoulder pain from what was thought to be perhaps a malfunction with a Rafy lift at her nursing facility and presented to the [facility] with right shoulder pain and x-rays obtained at the [facility], found her to have a right shoulder dislocation. She reported right shoulder pain, limited range of motion and as far as she or her daughter know this is the first that her shoulder has really bothered. PAST MEDICAL HISTORY: Significant for the noted spastic paralysis, hemiplegia lower extremities, heart failure, dysphagia, osteoarthritis, hypertension, seizure disorder, reflux, depression, COPD, constipation, congestive heart failure, anemia, anxiety. PAST SURGICAL HISTORY: No significant past surgical history. FAMILY HISTORY: Heart disease. SOCIAL HISTORY: She lives in a [facility]. No smoking, alcohol or drug use. She needs to be transferred with a lift, but does feed herself. MEDICATIONS: List is reviewed. ALLERGIES: INCLUDE CITRUS TYPE FRUITS. REVIEW OF SYSTEMS: Significant for the right shoulder pain, which seems sudden in onset with this incident with a Rafy lift. She really has no other complaints. No chest pain, shortness of breath, other joint pain other than the baseline inability to ambulate or transfer with the spastic paralysis progression, but she does feed herself normally with her arms and interacts with her family. She notes that her family has not been allowed to visit her just due to the COVID crisis over the past several months, however. PHYSICAL EXAMINATION: GENERAL: A pleasant, cooperative 89-year-old female. EXTREMITIES: On examination of the upper extremities, she has some palpable deformity of the right shoulder that appears to be anteriorly dislocated. She does have some crepitus with movement and some pain, but no real gross instability with the shoulder movement and she is able to move it a little better way from her side with significant pain. No parascapular instability is noted on either side. She has an otherwise normal examination of contralateral left shoulder, bilateral elbows and wrists. She has significant dryness to her skin throughout the upper extremities, significant left groin rash and some partial thickness skin abrasion on the heels with again dry skin throughout lower extremities as well with basically significant contractures in the lower extremities. IMAGING: X-rays show an anterior shoulder dislocation on the right with no evidence of fracture. IMPRESSION: 1. Right shoulder dislocation. 2. History of spastic paralysis and hemiplegia. TREATMENT PLAN: I discussed at some length with her daughter the issue that she appears to have a right shoulder dislocation that was unable to be reduced in the Emergency Department under sedation and we talked about treatment options of potentially leading the shoulder like it is versus attempt at reduction versus even surgical treatment. Since she is very limited and painful with this shoulder and really can only function by using her arms, she would like to treat as best as possible the issues with the shoulder. We have therefore discussed with the patient and her daughter a possible treatment plan of attempting a closed reduction. If that is unsuccessful just due to tissue problems, we talked about the possibility of arthroscoping the shoulder and possible reconstruction versus even if necessary, a reverse shoulder arthroplasty to restore her function and give her pain relief. Family appreciated the thorough discussion and does agree to proceed with this plan overall and we will proceed with hopeful closed reduction versus other surgical treatment if necessary today following resolution of her final COVID status as she was initially COVID positive in March and had an initial rapid COVID test that was negative with her back up test pending. SARAH BETH FERNANDEZ MD DR: JEANIE/ramakrishna JOB#: [id number] / [id number]
[2020-05-20] MEDS: METOPROLOL TART IMMED RELEASE 25 MG TABLET. PO SCH (21:00)
[2020-05-21] MEDS: NYSTATIN TOPICAL POWDER 15GM BOTTLE. TP SCH ×3 (00:34→22:04)
[2020-05-21 03:00] VITALS: BP 124/84
[2020-05-21 05:31] LABS: BASO % 0 % (0-3); EOS % 0 % (0-3); HEMATOCRIT 34.8 % (36.0-47.0); HEMOGLOBIN 11.6 g/dL (12.0-15.5); LYMPH % 11 % (24-48); MEAN CORPUSCULAR HEMOGLOBIN 31 pg (25-35); MEAN CORPUSCULAR HGB CONC 33 g/dL (31-37); MEAN CORPUSCULAR VOLUME 92 fL (79-100); MONO # 0.9 x10^3/uL (0.0-1.1); MONO % 11 % (0-9); NEUT # 6.6 x10^3/uL (1.8-7.7); NEUT % 77 % (31-73); PLATELET COUNT 149 x10^3/uL (140-400); RED BLOOD COUNT 3.76 x10^6/uL (3.50-5.40); RED CELL DISTRIBUTION WIDTH 14.7 % (11.5-14.5); WHITE BLOOD COUNT 8.6 x10^3/uL (4.0-11.0)
[2020-05-21 05:36] LABS: CALCIUM 8.9 mg/dL (8.5-10.1); CREATININE 1.2 mg/dL (0.6-1.0); GFR 42.4; POTASSIUM 3.8 mmol/L (3.5-5.1)
[2020-05-21 07:56] VITALS: BP 134/65
[2020-05-21] MEDS: ASPIRIN ENTERIC COATED 81 MG TABLET.DR. PO SCH ×2 (08:00→11:32)
[2020-05-21] MEDS: levETIRAcetam 250 MG TABLET PO SCH ×3 (09:00→22:03)
[2020-05-21] MEDS: carBAMazepine 200 MG TABLET PO SCH ×3 (09:00→22:01)
[2020-05-21] MEDS: METOPROLOL TART IMMED RELEASE 25 MG TABLET. PO SCH ×3 (09:00→22:03)
[2020-05-21] MEDS: MULTIVITAMIN with MINERAL TABLET. PO SCH (09:00)
--- NOTE | 2020-05-21 10:47 | PDOC ---
CARDIO Progress Notes Date and Time Date of Service 05/21/20 Time of Evaluation 1140 Subjective Subjective: No Chest Pain, No shortness of breath, No Palpitations Vitals Vitals Vital Signs Date Time Temp Pulse Resp B/P (MAP) Pulse Ox O2 Delivery O2 Flow Rate FiO2 05/21/20 07:56 98.1 86 16 134/65 (88) 96 Room Air 98.1 05/20/20 20:00 2.0 Weight Weight [ ] Input and Output Intake and Output Intake and Output 05/21/20 07:00 Intake Total 500 ml Output Total 1 ml Balance 499 ml Intake Oral 0 ml IV Total 500 ml Output Urine Total 1 ml Estimated Blood Loss 0 ml # Voids 3 # Bowel Movements 1 Laboratory Labs Laboratory Tests Test 05/21/20 04:10 White Blood Count 8.6 x10^3/uL (4.0-11.0) Red Blood Count 3.76 x10^6/uL (3.50-5.40) Hemoglobin 11.6 g/dL (12.0-15.5) Hematocrit 34.8 % (36.0-47.0) Mean Corpuscular Volume 92 fL (79-100) Mean Corpuscular Hemoglobin 31 pg (25-35) Mean Corpuscular Hemoglobin Concent 33 g/dL (31-37) Red Cell Distribution Width 14.7 % (11.5-14.5) Platelet Count 149 x10^3/uL (140-400) Neutrophils (%) (Auto) 77 % (31-73) Lymphocytes (%) (Auto) 11 % (24-48) Monocytes (%) (Auto) 11 % (0-9) Eosinophils (%) (Auto) 0 % (0-3) Basophils (%) (Auto) 0 % (0-3) Neutrophils # (Auto) 6.6 x10^3/uL (1.8-7.7) Lymphocytes # (Auto) 1.0 x10^3/uL (1.0-4.8) Monocytes # (Auto) 0.9 x10^3/uL (0.0-1.1) Eosinophils # (Auto) 0.0 x10^3/uL (0.0-0.7) Basophils # (Auto) 0.0 x10^3/uL (0.0-0.2) Sodium Level 147 mmol/L (136-145) Potassium Level 3.8 mmol/L (3.5-5.1) Chloride Level 109 mmol/L (98-107) Carbon Dioxide Level 29 mmol/L (21-32) Anion Gap 9 (6-14) Blood Urea Nitrogen 22 mg/dL (7-20) Creatinine 1.2 mg/dL (0.6-1.0) Estimated GFR (Cockcroft-Gault) 42.4 Glucose Level 81 mg/dL (70-99) Calcium Level 8.9 mg/dL (8.5-10.1) Physical Exam HEENT: Neck Supple W Full Motion Chest: Symmetric LUNGS: Clear to Auscultation, Other (diminished bases) Heart: S1S2, RRR (SR) Abdomen: Soft N/T Extremities: Other (traced bilateral LE edema) Neurology: alert, follow commands Assessment Assessment 1. Right shoulder pain, dislocation. chronic. nonoperative management 2. Arrhythmia; tele shows bursts of AFIB. No prior h/o AFIB per [facility] records. Now maintaining SR 3. Chronic diastolic CHF;clinically compensated 4. Hypertension; controlled 5. CKD ;Cr stable 6. Elevated LFTs 7. H/o seizures 8. Prior CVA Recommendations Echo pending to assess LV systolic function Metoprolol for rate control Add ASA therapy Supportive care Justicifation of Admission Dx: Justifications for Admission: Justification of Admission Dx: Yes JARON LOPEZ APRN May 21, 2020 10:47
[2020-05-21 11:00] VITALS: BP 136/88
[2020-05-21] MEDS: POLYVINYL ALCOHOL 1.4% OPHTH SOLUTION 15ML BOTTLE. OU SCH ×3 (11:33→22:04)
--- NOTE | 2020-05-21 13:05 | PDOC ---
PROGRESS NOTES Chief Complaint Chief Complaint Shoulder dislocation unable to be reduced by ED physician Aniket Moran pending COPD Hypertension Anemia CHF Osteoarthritis GERD Anxiety Depression Seizures groin rash, tinea, getting nystatin History of Present Illness History of Present Illness 05/20/2020 Patient seen and examined Chart reviewed Discussed with RN 05/19/20 Patient seen and examined, appears confused Chart reviewed Discussed with RN Shoulder dislocation unable to be reduced by ED physician Aniket 19 pending COPD Hypertension Anemia CHF Osteoarthritis GERD Anxiety Depression Seizures Vitals Vitals Vital Signs Date Time Temp Pulse Resp B/P (MAP) Pulse Ox O2 Delivery O2 Flow Rate FiO2 05/21/20 11:32 86 134/65 05/21/20 11:00 97.5 18 96 Nasal Cannula 2.0 97.5 Physical Exam General: Alert, Oriented X3, mild distress Heart: Regular rate, Normal S1, Normal S2 Lungs: Clear Abdomen: Soft, No tenderness Extremities: No edema, Normal pulses Skin: No rashes, No significant lesion Labs LABS Laboratory Tests Test 05/21/20 04:10 White Blood Count 8.6 x10^3/uL (4.0-11.0) Red Blood Count 3.76 x10^6/uL (3.50-5.40) Hemoglobin 11.6 g/dL (12.0-15.5) Hematocrit 34.8 % (36.0-47.0) Mean Corpuscular Volume 92 fL (79-100) Mean Corpuscular Hemoglobin 31 pg (25-35) Mean Corpuscular Hemoglobin Concent 33 g/dL (31-37) Red Cell Distribution Width 14.7 % (11.5-14.5) Platelet Count 149 x10^3/uL (140-400) Neutrophils (%) (Auto) 77 % (31-73) Lymphocytes (%) (Auto) 11 % (24-48) Monocytes (%) (Auto) 11 % (0-9) Eosinophils (%) (Auto) 0 % (0-3) Basophils (%) (Auto) 0 % (0-3) Neutrophils # (Auto) 6.6 x10^3/uL (1.8-7.7) Lymphocytes # (Auto) 1.0 x10^3/uL (1.0-4.8) Monocytes # (Auto) 0.9 x10^3/uL (0.0-1.1) Eosinophils # (Auto) 0.0 x10^3/uL (0.0-0.7) Basophils # (Auto) 0.0 x10^3/uL (0.0-0.2) Sodium Level 147 mmol/L (136-145) Potassium Level 3.8 mmol/L (3.5-5.1) Chloride Level 109 mmol/L (98-107) Carbon Dioxide Level 29 mmol/L (21-32) Anion Gap 9 (6-14) Blood Urea Nitrogen 22 mg/dL (7-20) Creatinine 1.2 mg/dL (0.6-1.0) Estimated GFR (Cockcroft-Gault) 42.4 Glucose Level 81 mg/dL (70-99) Calcium Level 8.9 mg/dL (8.5-10.1) Assessment and Plan Assessmemt and Plan Problems Medical Problems: (1) Shoulder dislocation Status: Acute Comment Review of Relevant I have reviewed the following items frederic (where applicable) has been applied. Labs Laboratory Tests Test 05/21/20 04:10 White Blood Count 8.6 x10^3/uL (4.0-11.0) Red Blood Count 3.76 x10^6/uL (3.50-5.40) Hemoglobin 11.6 g/dL (12.0-15.5) Hematocrit 34.8 % (36.0-47.0) Mean Corpuscular Volume 92 fL (79-100) Mean Corpuscular Hemoglobin 31 pg (25-35) Mean Corpuscular Hemoglobin Concent 33 g/dL (31-37) Red Cell Distribution Width 14.7 % (11.5-14.5) Platelet Count 149 x10^3/uL (140-400) Neutrophils (%) (Auto) 77 % (31-73) Lymphocytes (%) (Auto) 11 % (24-48) Monocytes (%) (Auto) 11 % (0-9) Eosinophils (%) (Auto) 0 % (0-3) Basophils (%) (Auto) 0 % (0-3) Neutrophils # (Auto) 6.6 x10^3/uL (1.8-7.7) Lymphocytes # (Auto) 1.0 x10^3/uL (1.0-4.8) Monocytes # (Auto) 0.9 x10^3/uL (0.0-1.1) Eosinophils # (Auto) 0.0 x10^3/uL (0.0-0.7) Basophils # (Auto) 0.0 x10^3/uL (0.0-0.2) Sodium Level 147 mmol/L (136-145) Potassium Level 3.8 mmol/L (3.5-5.1) Chloride Level 109 mmol/L (98-107) Carbon Dioxide Level 29 mmol/L (21-32) Anion Gap 9 (6-14) Blood Urea Nitrogen 22 mg/dL (7-20) Creatinine 1.2 mg/dL (0.6-1.0) Estimated GFR (Cockcroft-Gault) 42.4 Glucose Level 81 mg/dL (70-99) Calcium Level 8.9 mg/dL (8.5-10.1) Laboratory Tests Test 05/21/20 04:10 White Blood Count 8.6 x10^3/uL (4.0-11.0) Red Blood Count 3.76 x10^6/uL (3.50-5.40) Hemoglobin 11.6 g/dL (12.0-15.5) Hematocrit 34.8 % (36.0-47.0) Mean Corpuscular Volume 92 fL (79-100) Mean Corpuscular Hemoglobin 31 pg (25-35) Mean Corpuscular Hemoglobin Concent 33 g/dL (31-37) Red Cell Distribution Width 14.7 % (11.5-14.5) Platelet Count 149 x10^3/uL (140-400) Neutrophils (%) (Auto) 77 % (31-73) Lymphocytes (%) (Auto) 11 % (24-48) Monocytes (%) (Auto) 11 % (0-9) Eosinophils (%) (Auto) 0 % (0-3) Basophils (%) (Auto) 0 % (0-3) Neutrophils # (Auto) 6.6 x10^3/uL (1.8-7.7) Lymphocytes # (Auto) 1.0 x10^3/uL (1.0-4.8) Monocytes # (Auto) 0.9 x10^3/uL (0.0-1.1) Eosinophils # (Auto) 0.0 x10^3/uL (0.0-0.7) Basophils # (Auto) 0.0 x10^3/uL (0.0-0.2) Sodium Level 147 mmol/L (136-145) Potassium Level 3.8 mmol/L (3.5-5.1) Chloride Level 109 mmol/L (98-107) Carbon Dioxide Level 29 mmol/L (21-32) Anion Gap 9 (6-14) Blood Urea Nitrogen 22 mg/dL (7-20) Creatinine 1.2 mg/dL (0.6-1.0) Estimated GFR (Cockcroft-Gault) 42.4 Glucose Level 81 mg/dL (70-99) Calcium Level 8.9 mg/dL (8.5-10.1) Medications Current Medications Fentanyl Citrate (Fentanyl 2ml Vial) 50 mcg 1X ONCE IM Last administered on 05/19/20at 01:42; Start 05/19/20 at 01:15; Stop 05/19/20 at 01:17; Status DC Propofol (Diprivan) 200 mg 1X ONCE IV Last administered on 05/19/20at 02:28; Start 05/19/20 at 01:45; Stop 05/19/20 at 01:46; Status DC Fentanyl Citrate (Fentanyl 2ml Vial) 50 mcg 1X ONCE IVP Last administered on 05/19/20at 02:27; Start 05/19/20 at 02:30; Stop 05/19/20 at 02:55; Status DC Fentanyl Citrate (Fentanyl 2ml Vial) 50 mcg PRN Q1HR PRN IV PAIN; Start 05/19/20 at 02:30; Stop 05/20/20 at 02:29; Status DC Ondansetron HCl (Zofran) 4 mg PRN Q4HRS PRN IV NAUSEA/VOMITING; Start 05/19/20 at 06:15 Acetaminophen (Tylenol) 650 mg PRN Q4HRS PRN PO TEMP OVER 100.4F OR MILD PAIN; Start 05/19/20 at 06:15 Carbamazepine (TEGretol) 100 mg TID PO Last administered on 05/21/20at 11:32; Start 05/19/20 at 09:00 Levetiracetam (Keppra) 250 mg BID PO Last administered on 05/21/20at 11:32; Start 05/19/20 at 09:00 Polyethylene Glycol (miraLAX PACKET) 17 gm PRN DAILY PRN PO CONSTIPATION; Start 05/19/20 at 06:15 Latanoprost (Xalatan) 1 drop QHS OU Last administered on 05/20/20at 10:10; Start 05/19/20 at 21:00 Artificial Tears (Artificial Tears) 1 drop TID OU Last administered on 05/21/20at 11:33; Start 05/19/20 at 09:00 Multivitamins (Thera M Plus) 1 tab DAILY PO ; Start 05/19/20 at 09:00 Ondansetron HCl (Zofran) 4 mg PRN Q6HRS PRN IVP NAUSEA/VOMITING; Start 05/20/20 at 07:15; Stop 05/21/20 at 07:14; Status DC Fentanyl Citrate (Fentanyl 2ml Vial) 25 mcg PRN Q5MIN PRN IVP MILD PAIN 1-3; Start 05/20/20 at 07:15; Stop 05/21/20 at 07:14; Status DC Fentanyl Citrate (Fentanyl 2ml Vial) 50 mcg PRN Q5MIN PRN IVP MODERATE TO SEVERE PAIN; Start 05/20/20 at 07:15; Stop 05/21/20 at 07:14; Status DC Morphine Sulfate (Morphine Sulfate) 1 mg PRN Q10MIN PRN IVP SEVERE PAIN 7-10; Start 05/20/20 at 07:15; Stop 05/21/20 at 07:14; Status DC Ringer's Solution 1,000 ml @ 30 mls/hr Q24H IV Last administered on 05/20/20at 16:35; Start 05/20/20 at 07:06; Stop 05/20/20 at 19:05; Status DC Lidocaine HCl (Xylocaine-Mpf 1% 2ml Vial) 2 ml 1X PRN PRN ID IV START; Start 05/20/20 at 07:15; Stop 05/21/20 at 07:14; Status DC Hydromorphone HCl (Dilaudid) 0.5 mg PRN Q10MIN PRN IVP SEV PAIN, Second choice; Start 05/20/20 at 07:15; Stop 05/21/20 at 07:14; Status DC Prochlorperazine Edisylate (Compazine) 5 mg PACU PRN PRN IVP NAUSEA, MRX1; Start 05/20/20 at 07:15; Stop 05/21/20 at 07:14; Status DC Metoprolol Tartrate (Lopressor Vial) 5 mg 1X ONCE IVP Last administered on 05/20/20at 12:34; Start 05/20/20 at 12:30; Stop 05/20/20 at 12:31; Status DC Metoprolol Tartrate (Lopressor) 25 mg BID PO Last administered on 05/21/20at 11:32; Start 05/20/20 at 21:00 Succinylcholine Chloride (Anectine) 200 mg STK-MED ONCE .ROUTE ; Start 05/20/20 at 13:20; Stop 05/20/20 at 13:21; Status DC Propofol (Diprivan) 200 mg STK-MED ONCE IV ; Start 05/20/20 at 13:20; Stop 05/20/20 at 13:21; Status DC Lidocaine HCl (Lidocaine Pf 2% Vial) 5 ml STK-MED ONCE .ROUTE ; Start 05/20/20 at 13:20; Stop 05/20/20 at 13:21; Status DC Aspirin (Ecotrin) 81 mg DAILYWBKFT PO Last administered on 05/21/20at 11:32; Start 05/20/20 at 15:30 Fentanyl Citrate (Fentanyl 2ml Vial) 100 mcg STK-MED ONCE .ROUTE ; Start 05/20/20 at 16:41; Stop 05/20/20 at 16:41; Status DC Ondansetron HCl (Zofran) 4 mg STK-MED ONCE .ROUTE ; Start 05/20/20 at 16:52; Stop 05/20/20 at 16:52; Status DC Phenylephrine HCl (PHENYLEPHRINE in 0.9% NACL PF) 1 mg STK-MED ONCE IV ; Start 05/20/20 at 16:55; Stop 05/20/20 at 16:55; Status DC Nystatin (Nystop) 1 chio BID TP Last administered on 05/21/20at 11:33; Start 05/20/20 at 21:00 Tramadol HCl (Ultram) 50 mg PRN Q6HRS PRN PO PAIN; Start 05/21/20 at 13:00 Active Scripts Active Zofran Odt (Ondansetron) 4 Mg Tab.rapdis 4 Mg PO PRN Q4HRS PRN Keppra (Levetiracetam) 250 Mg Tablet 250 Mg PO BID Colace (Docusate Sodium) 100 Mg Capsule 100 Mg PO BID Catapres (Clonidine Hcl) 0.1 Mg Tablet 0.1 Mg PO DAILY Tegretol (Carbamazepine) 200 Mg Tablet 100 Mg PO TID Tylenol (Acetaminophen) 325 Mg Tablet 650 Mg PO PRN Q4HRS PRN Reported Furosemide 40 Mg Tablet 40 Mg PO DAILY Ferrous Sulfate 325 Mg Tablet 325 Mg PO DAILY Artificial Tears Eye Drops (Dextran 70/Hypromellose) 15 Ml Drops 1 Drop EACHEYE TID Lumigan (Bimatoprost) 2.5 Ml Drops 1 Drop EACHEYE QHS Multivitamins (Multivitamin) 1 Each Tablet 1 Each PO DAILY Miralax (Polyethylene Glycol 3350) 17 Gm Powd.pack 1 Pkt PO PRN DAILY PRN Baclofen 10 Mg Tablet 10 Mg PO QHS Potassium Chloride (Potassium Chloride) 10 Meq Capsule.er 10 Meq PO DAILY Vitals/I & O Vital Sign - Last 24 Hours 05/20/20 05/20/20 05/20/20 05/20/20 15:18 15:45 17:11 17:11 Temp 96.8 98.0 98.3 96.8 98.0 98.3 Pulse 86 96 86 Resp 18 B/P (MAP) 139/65 (89) 125/67 188/76 Pulse Ox 97 94 94 O2 Delivery Nasal Cannula Room Air Room Air Simple Mask O2 Flow Rate 2.0 10 10 05/20/20 05/20/20 05/20/20 05/20/20 17:25 17:40 17:45 20:00 Temp 98 98.0 Pulse 90 88 Resp 18 B/P (MAP) 131/7 104/64 Pulse Ox 95 96 O2 Delivery Nasal Cannula Nasal Cannula Nasal Cannula Nasal Cannula O2 Flow Rate 2 2 2 2.0 05/21/20 05/21/20 05/21/20 05/21/20 03:00 07:56 08:00 11:00 Temp 98.2 98.1 97.5 98.2 98.1 97.5 Pulse 94 86 90 Resp 18 B/P (MAP) 124/84 (97) 134/65 (88) 136/88 (104) Pulse Ox 100 96 96 O2 Delivery Room Air Room Air Nasal Cannula Nasal Cannula O2 Flow Rate 2.0 2.0 05/21/20 11:32 Pulse 86 B/P (MAP) 134/65 Intake and Output 05/20/20 05/20/20 05/21/20 15:00 23:00 07:00 Intake Total 500 ml 0 ml Output Total 1 ml 0 ml Balance -1 ml 500 ml 0 ml Justicifation of Admission Dx: Justifications for Admission: Justification of Admission Dx: Yes PEARL VARGAS MD May 21, 2020 13:05
[2020-05-21] MEDS: traMADol 50 MG TABLET PO PRN (13:43)
--- NOTE | 2020-05-21 13:52 | NUR ---
SW following. Spoke with RN and reviewed chart. Pt not ready for discharge. Pt to return LTC to [facility], , (fax) when stable. Pt now on . SW phoned and faxed updates to the facility. SW to continue following.
--- NOTE | 2020-05-21 14:24 | CARD ---
MR#: [id number] Date of Study: 05/21/2020 Ordering Physician: JARON LOPEZ, Referring Physician: JARON LOPEZ, Tech: Brook Kelley [employer]ME APPROVED REPORT EXAM: Two-dimensional and M-mode echocardiogram with Doppler and color Doppler. Other Information Quality : Fair Rhythm : Atrial Fibrillation INDICATION Atrial Fibrillation 2D DIMENSIONS RVDd1.9 (2.9-3.5cm)Left Atrium(2D)3.6 (1.6-4.0cm) IVSd1.1 (0.7-1.1cm)Aortic Root(2D)3.1 (2.0-3.7cm) LVDd4.9 (3.9-5.9cm)LVOT Diameter2.0 (1.8-2.4cm) PWd1.0 (0.7-1.1cm)LVDs3.9 (2.5-4.0cm) FS (%) 20.9 %SV48.7 ml LVEF(%)35.0 (>50%) Aortic Valve AoV Peak Bryon.125.9cm/sAoV VTI23.0cm AO Peak GR.6.3mmHgLVOT VTI 14.92cm AO Mean GR.3mmHgAVA (VTI)2.10cm2 TDI Lateral E' P. V2.45cm/sMedial E' P. V4.25cm/s LEFT VENTRICLE The left ventricle is normal size. There is normal left ventricular wall thickness. Left ventricle ej ection fraction is severely impaired. The Ejection Fraction is 20-25%. There is global hypokinesis of the left ventricle. Tissue Doppler imaging reveals severe left ventricular diastolic dysfunction. RIGHT VENTRICLE The right ventricle is normal size. The right ventricular systolic function is normal. ATRIA The left atrium is moderately dilated. The right atrium size is normal. The interatrial septum is int act with no evidence for an atrial septal defect or patent foramen ovale as noted on 2-D or Doppler i maging. AORTIC VALVE The aortic valve is not well visualized. Doppler and Color Flow revealed no significant aortic regurg itation. There is no significant aortic valvular stenosis. MITRAL VALVE The mitral valve is mildly thickened but opens well. Mitral annular calcification is moderate. There is no evidence of mitral valve prolapse. There is no mitral valve stenosis. Doppler and Color-flow re vealed trace mitral regurgitation. TRICUSPID VALVE The tricuspid valve is normal in structure and function. Doppler and Color Flow revealed no tricuspid valve regurgitation noted. There is no tricuspid valve stenosis. PULMONIC VALVE The pulmonic valve is not well visualized. Doppler and Color Flow revealed no pulmonic valvular regur gitation. There is no pulmonic valvular stenosis. GREAT VESSELS The aortic root is normal in size. The ascending aorta is not well seen. The IVC was not visualized. PERICARDIAL EFFUSION There is no evidence of significant pericardial effusion. Critical Notification Critical Value: No <Conclusion> Left ventricle ejection fraction is severely impaired. The Ejection Fraction is 20-25%. There is global hypokinesis of the left ventricle. Technically very difficult study Signed by : Jass Azar, Electronically Approved : 05/21/2020 14:24:03
[2020-05-21 15:20] VITALS: BP 116/58
[2020-05-21] MEDS: oxyCODONE/APAP 5/325 1 TAB TABLET PO PRN (17:50)
[2020-05-21 19:00] VITALS: BP 143/80
[2020-05-21] MEDS: LATANOPROST 0.005% OPHTH SOLUTION 2.5ML BOTTLE. OU SCH (22:04)
[2020-05-21 23:00] VITALS: BP 120/68
[2020-05-22 03:00] VITALS: BP 147/76
[2020-05-22 04:06] LABS: BASO % 0 % (0-3); EOS # 0.3 x10^3/uL (0.0-0.7); EOS % 3 % (0-3); HEMATOCRIT 35.2 % (36.0-47.0); HEMOGLOBIN 11.7 g/dL (12.0-15.5); LYMPH # 1.5 x10^3/uL (1.0-4.8); LYMPH % 19 % (24-48); MEAN CORPUSCULAR HEMOGLOBIN 31 pg (25-35); MEAN CORPUSCULAR HGB CONC 33 g/dL (31-37); MEAN CORPUSCULAR VOLUME 93 fL (79-100); MONO # 0.8 x10^3/uL (0.0-1.1); MONO % 10 % (0-9); NEUT # 5.4 x10^3/uL (1.8-7.7); NEUT % 67 % (31-73); PLATELET COUNT 146 x10^3/uL (140-400); RED CELL DISTRIBUTION WIDTH 14.2 % (11.5-14.5)
[2020-05-22 04:21] LABS: CALCIUM 8.6 mg/dL (8.5-10.1); CREATININE 1.1 mg/dL (0.6-1.0); GFR 46.9; POTASSIUM 3.6 mmol/L (3.5-5.1)
[2020-05-22 07:00] VITALS: BP 156/78
[2020-05-22 08:36] LABS: CHOLESTEROL/HDL RATIO 4.6
[2020-05-22] MEDS: MULTIVITAMIN with MINERAL TABLET. PO SCH (08:54)
[2020-05-22] MEDS: levETIRAcetam 250 MG TABLET PO SCH ×2 (08:54→21:04)
[2020-05-22] MEDS: NYSTATIN TOPICAL POWDER 15GM BOTTLE. TP SCH ×2 (08:54→21:13)
[2020-05-22] MEDS: POLYVINYL ALCOHOL 1.4% OPHTH SOLUTION 15ML BOTTLE. OU SCH ×3 (08:54→21:16)
[2020-05-22] MEDS: METOPROLOL TART IMMED RELEASE 25 MG TABLET. PO SCH (08:55)
[2020-05-22] MEDS: carBAMazepine 200 MG TABLET PO SCH ×3 (08:55→21:05)
[2020-05-22 11:00] VITALS: BP 127/62
--- NOTE | 2020-05-22 11:50 | PDOC ---
CARDIO Progress Notes Date and Time Date of Service 05/22/20 Time of Evaluation 1145 Subjective Subjective: No Chest Pain, No shortness of breath, No Palpitations Vitals Vitals Vital Signs Date Time Temp Pulse Resp B/P (MAP) Pulse Ox O2 Delivery O2 Flow Rate FiO2 05/22/20 11:00 98.0 71 18 127/62 (83) 90 98.0 05/22/20 08:00 Nasal Cannula 2.0 Weight Weight [ ] Input and Output Intake and Output Intake and Output 05/22/20 07:00 Intake Total 650 ml Output Total 1000 ml Balance -350 ml Intake Oral 650 ml Output Urine Total 1000 ml Laboratory Labs Laboratory Tests Test 05/22/20 03:35 White Blood Count 8.0 x10^3/uL (4.0-11.0) Red Blood Count 3.80 x10^6/uL (3.50-5.40) Hemoglobin 11.7 g/dL (12.0-15.5) Hematocrit 35.2 % (36.0-47.0) Mean Corpuscular Volume 93 fL (79-100) Mean Corpuscular Hemoglobin 31 pg (25-35) Mean Corpuscular Hemoglobin Concent 33 g/dL (31-37) Red Cell Distribution Width 14.2 % (11.5-14.5) Platelet Count 146 x10^3/uL (140-400) Neutrophils (%) (Auto) 67 % (31-73) Lymphocytes (%) (Auto) 19 % (24-48) Monocytes (%) (Auto) 10 % (0-9) Eosinophils (%) (Auto) 3 % (0-3) Basophils (%) (Auto) 0 % (0-3) Neutrophils # (Auto) 5.4 x10^3/uL (1.8-7.7) Lymphocytes # (Auto) 1.5 x10^3/uL (1.0-4.8) Monocytes # (Auto) 0.8 x10^3/uL (0.0-1.1) Eosinophils # (Auto) 0.3 x10^3/uL (0.0-0.7) Basophils # (Auto) 0.0 x10^3/uL (0.0-0.2) Sodium Level 141 mmol/L (136-145) Potassium Level 3.6 mmol/L (3.5-5.1) Chloride Level 104 mmol/L (98-107) Carbon Dioxide Level 28 mmol/L (21-32) Anion Gap 9 (6-14) Blood Urea Nitrogen 23 mg/dL (7-20) Creatinine 1.1 mg/dL (0.6-1.0) Estimated GFR (Cockcroft-Gault) 46.9 Glucose Level 75 mg/dL (70-99) Calcium Level 8.6 mg/dL (8.5-10.1) Magnesium Level 2.0 mg/dL (1.8-2.4) Triglycerides Level 138 mg/dL (0-150) Cholesterol Level 220 mg/dL (0-200) LDL Cholesterol, Calculated 144 mg/dL (0-100) VLDL Cholesterol, Calculated 28 mg/dL (0-40) Non-HDL Cholesterol Calculated 172 mg/dL (0-129) HDL Cholesterol 48 mg/dL (40-60) Cholesterol/HDL Ratio 4.6 Physical Exam HEENT: Neck Supple W Full Motion Chest: Symmetric LUNGS: Clear to Auscultation, Other (diminished bases) Heart: S1S2, RRR (SR) Abdomen: Soft N/T Extremities: Other (traced bilateral LE edema) Neurology: alert, follow commands Assessment Assessment 1. Right shoulder pain, dislocation. chronic. nonoperative management 2. Arrhythmia; tele shows bursts of AFIB. No prior h/o AFIB per [facility] records. Now maintaining SR 3. Chronic systolic CHF;clinically compensated. Echo showed LVEF 20-25% 4. Hypertension; controlled 5. CKD ;Cr stable 6. Elevated LFTs 7. H/o seizures 8. Prior CVA Recommendations Discussed findings of cardiomyopathy, along with treatment options of medical management versus aggressive workup with further ischemic evaluation (stress testing versus heart catheterization), with patient and daughter, Alyssia. They wish to proceed with conservative management and would like no further ischemic evaluation, which is very appropriate given advance age and comorbidities. Continue Metoprolol; will convert to long-acting for HR optimization. Add lisinopril Add ASA therapy Supportive care Justicifation of Admission Dx: Justifications for Admission: Justification of Admission Dx: Yes JARON LOPEZ APRN May 22, 2020 11:50
--- NOTE | 2020-05-22 11:54 | PDOC ---
[facility] PROGRESS NOTE Chief Complaint Chief Complaint Shoulder dislocation unable to be reduced by ED physician Aniket Moran pending COPD Hypertension Anemia CHF Osteoarthritis GERD Anxiety Depression Seizures groin rash, tinea, getting nystatin History of Present Illness History of Present Illness 05/22/20 Patient seen and examined Chart reviewed Discussed with RN Discussed discharge plan with her daughter 05/20/2020 Patient seen and examined Chart reviewed Discussed with RN 05/19/20 Patient seen and examined, appears confused Chart reviewed Discussed with RN Shoulder dislocation unable to be reduced by ED physician Aniket 19 pending COPD Hypertension Anemia CHF Osteoarthritis GERD Anxiety Depression Seizures Vitals/I&O Vitals/I&O: Vital Signs Date Time Temp Pulse Resp B/P (MAP) Pulse Ox O2 Delivery O2 Flow Rate FiO2 05/22/20 11:00 98.0 71 18 127/62 (83) 90 98.0 05/22/20 08:00 Nasal Cannula 2.0 I & O 05/21/20 05/21/20 05/22/20 15:00 23:00 07:00 Intake Total 300 ml 350 ml 0 ml Output Total 400 ml 600 ml Balance 300 ml -50 ml -600 ml Physical Exam General: Alert, Oriented X3, Cooperative, mild distress Heart: Regular rate, Normal S1, Normal S2, No murmurs Lungs: Clear Abdomen: Soft, No tenderness Extremities: No edema, Normal pulses Skin: No rashes, No significant lesion Labs Labs: Laboratory Tests Test 05/22/20 03:35 White Blood Count 8.0 x10^3/uL (4.0-11.0) Red Blood Count 3.80 x10^6/uL (3.50-5.40) Hemoglobin 11.7 g/dL (12.0-15.5) Hematocrit 35.2 % (36.0-47.0) Mean Corpuscular Volume 93 fL (79-100) Mean Corpuscular Hemoglobin 31 pg (25-35) Mean Corpuscular Hemoglobin Concent 33 g/dL (31-37) Red Cell Distribution Width 14.2 % (11.5-14.5) Platelet Count 146 x10^3/uL (140-400) Neutrophils (%) (Auto) 67 % (31-73) Lymphocytes (%) (Auto) 19 % (24-48) Monocytes (%) (Auto) 10 % (0-9) Eosinophils (%) (Auto) 3 % (0-3) Basophils (%) (Auto) 0 % (0-3) Neutrophils # (Auto) 5.4 x10^3/uL (1.8-7.7) Lymphocytes # (Auto) 1.5 x10^3/uL (1.0-4.8) Monocytes # (Auto) 0.8 x10^3/uL (0.0-1.1) Eosinophils # (Auto) 0.3 x10^3/uL (0.0-0.7) Basophils # (Auto) 0.0 x10^3/uL (0.0-0.2) Sodium Level 141 mmol/L (136-145) Potassium Level 3.6 mmol/L (3.5-5.1) Chloride Level 104 mmol/L (98-107) Carbon Dioxide Level 28 mmol/L (21-32) Anion Gap 9 (6-14) Blood Urea Nitrogen 23 mg/dL (7-20) Creatinine 1.1 mg/dL (0.6-1.0) Estimated GFR (Cockcroft-Gault) 46.9 Glucose Level 75 mg/dL (70-99) Calcium Level 8.6 mg/dL (8.5-10.1) Magnesium Level 2.0 mg/dL (1.8-2.4) Triglycerides Level 138 mg/dL (0-150) Cholesterol Level 220 mg/dL (0-200) LDL Cholesterol, Calculated 144 mg/dL (0-100) VLDL Cholesterol, Calculated 28 mg/dL (0-40) Non-HDL Cholesterol Calculated 172 mg/dL (0-129) HDL Cholesterol 48 mg/dL (40-60) Cholesterol/HDL Ratio 4.6 Assessment and Plan Assessmemt and Plan Problems Medical Problems: (1) Shoulder dislocation Status: Acute Assesment: Shoulder dislocation unable to be reduced by ED physician Covid 19 pending COPD Hypertension Anemia CHF Osteoarthritis GERD Anxiety Depression Seizures groin rash, tinea, getting nystatin Plan: Physical therapy PRN pain meds Home meds DVT prophylaxis Hope to discharge tomorrow Comment Review of Relevant I have reviewed the following items frederic (where applicable) has been applied. Medications: Current Medications Medications (Trade) Dose Ordered Sig/Cherise Route PRN Reason Start Time Stop Time Status Last Admin Dose Admin Tramadol HCl (Ultram) 50 mg PRN Q6HRS PRN PO PAIN 05/21/20 13:00 05/21/20 13:43 Oxycodone/ Acetaminophen (Percocet 5/325) 1 tab PRN Q4HRS PRN PO PAIN 05/21/20 17:45 05/21/20 17:50 Justicifation of Admission Dx: Justifications for Admission: Justification of Admission Dx: Yes BRITNI MARTINEZ III DO May 22, 2020 11:54
--- NOTE | 2020-05-22 13:18 | NUR ---
SW following. Spoke with RN and reviewed chart. Spoke with pt and pt's dtr as well as facility SW. IVETH coordinated care with Dr. Benítez and CUTTER GRINDER Staci from cardiology. Discharge plan is for pt to return back with SNU orders to [facility], , (fax) at 10:30am on 05/23/2020. Pt to transport via the facility by wc on room air and on oral medications. Spoke with facility about potential hospice referral in the future as pt is not ready for this at the present time. RN and Dr. Benítez informed of discharge time for tomorrow. IVETH to continue following. Addendum: 05/22/20 at 1645 by ULISES LAZARO transport time move to 1500. RN notified to pass on in report.
[2020-05-22] MEDS: LISINOPRIL 10 MG TABLET PO SCH (13:40)
[2020-05-22] MEDS: oxyCODONE/APAP 5/325 1 TAB TABLET PO PRN ×2 (13:41→17:54)
[2020-05-22] MEDS: METOPROLOL SUCC 24HR ER 50 MG TAB.ER.24H. PO SCH (13:41)
[2020-05-22 15:00] VITALS: BP 142/62
[2020-05-22] MEDS: traMADol 50 MG TABLET PO PRN (16:05)
[2020-05-22 19:00] VITALS: BP 109/48
[2020-05-22] MEDS: LATANOPROST 0.005% OPHTH SOLUTION 2.5ML BOTTLE. OU SCH (21:11)
[2020-05-22 23:01] VITALS: BP 110/52
[2020-05-23 03:00] VITALS: BP 115/48
[2020-05-23 04:08] LABS: BASO % 1 % (0-3); EOS # 0.3 x10^3/uL (0.0-0.7); EOS % 4 % (0-3); HEMATOCRIT 32.5 % (36.0-47.0); HEMOGLOBIN 10.8 g/dL (12.0-15.5); LYMPH # 1.1 x10^3/uL (1.0-4.8); LYMPH % 16 % (24-48); MEAN CORPUSCULAR HEMOGLOBIN 31 pg (25-35); MEAN CORPUSCULAR HGB CONC 33 g/dL (31-37); MEAN CORPUSCULAR VOLUME 92 fL (79-100); MONO # 0.7 x10^3/uL (0.0-1.1); MONO % 9 % (0-9); NEUT % 70 % (31-73); PLATELET COUNT 170 x10^3/uL (140-400); RED BLOOD COUNT 3.55 x10^6/uL (3.50-5.40); RED CELL DISTRIBUTION WIDTH 14.3 % (11.5-14.5); WHITE BLOOD COUNT 7.2 x10^3/uL (4.0-11.0)
[2020-05-23 04:32] LABS: CALCIUM 8.3 mg/dL (8.5-10.1); CREATININE 1.4 mg/dL (0.6-1.0); GFR 35.5; POTASSIUM 3.3 mmol/L (3.5-5.1)
[2020-05-23 07:23] VITALS: BP 108/52
[2020-05-23] MEDS ORDERED: POTASSIUM CHLORIDE 20 MEQ TABLET.ER. PO ONE (08:15)
[2020-05-23] MEDS: NYSTATIN TOPICAL POWDER 15GM BOTTLE. TP SCH (09:00)
[2020-05-23] MEDS: ASPIRIN ENTERIC COATED 81 MG TABLET.DR. PO SCH (09:24)
[2020-05-23] MEDS: carBAMazepine 200 MG TABLET PO SCH ×2 (09:24→15:34)
[2020-05-23] MEDS: POLYVINYL ALCOHOL 1.4% OPHTH SOLUTION 15ML BOTTLE. OU SCH ×2 (09:25→14:00)
[2020-05-23] MEDS: MULTIVITAMIN with MINERAL TABLET. PO SCH (09:25)
[2020-05-23] MEDS: METOPROLOL SUCC 24HR ER 50 MG TAB.ER.24H. PO SCH (09:25)
[2020-05-23] MEDS: LISINOPRIL 10 MG TABLET PO SCH (09:25)
[2020-05-23] MEDS: levETIRAcetam 250 MG TABLET PO SCH (09:25)
[2020-05-23] MEDS: traMADol 50 MG TABLET PO PRN (09:32)
[2020-05-23 11:16] VITALS: BP 118/65
--- NOTE | 2020-05-23 12:27 | PDOC3 ---
Discharge Summary Visit Information Date of Admission: May 19, 2020 Date of Discharge: May 23, 2020 Final Diagnosis Shoulder dislocation unable to be reduced by ED physician Covid 19 required screen here for DC COPD Hypertension Anemia CHF Osteoarthritis GERD Anxiety Depression Seizures groin rash, tinea, getting nystatin Problems Medical Problems: (1) Shoulder dislocation Status: Acute Brief Hospital Course Allergies Allergies Coded Allergies Type Severity Reaction Last Updated Verified grapefruit Allergy Intermediate Rash 05/20/20 Yes lemon Allergy Intermediate 05/20/20 Yes [place] Allergy Intermediate Rash 05/20/20 Yes orange flavor Allergy Intermediate 11/25/17 Yes orange juice Allergy Intermediate 05/20/20 Yes Vital Signs Vital Signs Date Time Temp Pulse Resp B/P (MAP) Pulse Ox O2 Delivery O2 Flow Rate FiO2 05/23/20 11:16 98.1 73 17 118/65 (82) 94 Room Air 98.1 05/22/20 08:00 2.0 Lab Results Laboratory Tests Test 05/22/20 03:35 05/23/20 03:30 White Blood Count 8.0 x10^3/uL (4.0-11.0) 7.2 x10^3/uL (4.0-11.0) Red Blood Count 3.80 x10^6/uL (3.50-5.40) 3.55 x10^6/uL (3.50-5.40) Hemoglobin 11.7 g/dL (12.0-15.5) 10.8 g/dL (12.0-15.5) Hematocrit 35.2 % (36.0-47.0) 32.5 % (36.0-47.0) Mean Corpuscular Volume 93 fL (79-100) 92 fL (79-100) Mean Corpuscular Hemoglobin 31 pg (25-35) 31 pg (25-35) Mean Corpuscular Hemoglobin Concent 33 g/dL (31-37) 33 g/dL (31-37) Red Cell Distribution Width 14.2 % (11.5-14.5) 14.3 % (11.5-14.5) Platelet Count 146 x10^3/uL (140-400) 170 x10^3/uL (140-400) Neutrophils (%) (Auto) 67 % (31-73) 70 % (31-73) Lymphocytes (%) (Auto) 19 % (24-48) 16 % (24-48) Monocytes (%) (Auto) 10 % (0-9) 9 % (0-9) Eosinophils (%) (Auto) 3 % (0-3) 4 % (0-3) Basophils (%) (Auto) 0 % (0-3) 1 % (0-3) Neutrophils # (Auto) 5.4 x10^3/uL (1.8-7.7) 5.0 x10^3/uL (1.8-7.7) Lymphocytes # (Auto) 1.5 x10^3/uL (1.0-4.8) 1.1 x10^3/uL (1.0-4.8) Monocytes # (Auto) 0.8 x10^3/uL (0.0-1.1) 0.7 x10^3/uL (0.0-1.1) Eosinophils # (Auto) 0.3 x10^3/uL (0.0-0.7) 0.3 x10^3/uL (0.0-0.7) Basophils # (Auto) 0.0 x10^3/uL (0.0-0.2) 0.0 x10^3/uL (0.0-0.2) Sodium Level 141 mmol/L (136-145) 138 mmol/L (136-145) Potassium Level 3.6 mmol/L (3.5-5.1) 3.3 mmol/L (3.5-5.1) Chloride Level 104 mmol/L (98-107) 104 mmol/L (98-107) Carbon Dioxide Level 28 mmol/L (21-32) 27 mmol/L (21-32) Anion Gap 9 (6-14) 7 (6-14) Blood Urea Nitrogen 23 mg/dL (7-20) 28 mg/dL (7-20) Creatinine 1.1 mg/dL (0.6-1.0) 1.4 mg/dL (0.6-1.0) Estimated GFR (Cockcroft-Gault) 46.9 35.5 Glucose Level 75 mg/dL (70-99) 90 mg/dL (70-99) Calcium Level 8.6 mg/dL (8.5-10.1) 8.3 mg/dL (8.5-10.1) Magnesium Level 2.0 mg/dL (1.8-2.4) Triglycerides Level 138 mg/dL (0-150) Cholesterol Level 220 mg/dL (0-200) LDL Cholesterol, Calculated 144 mg/dL (0-100) VLDL Cholesterol, Calculated 28 mg/dL (0-40) Non-HDL Cholesterol Calculated 172 mg/dL (0-129) HDL Cholesterol 48 mg/dL (40-60) Cholesterol/HDL Ratio 4.6 Laboratory Tests Test 05/23/20 03:30 White Blood Count 7.2 x10^3/uL (4.0-11.0) Red Blood Count 3.55 x10^6/uL (3.50-5.40) Hemoglobin 10.8 g/dL (12.0-15.5) Hematocrit 32.5 % (36.0-47.0) Mean Corpuscular Volume 92 fL (79-100) Mean Corpuscular Hemoglobin 31 pg (25-35) Mean Corpuscular Hemoglobin Concent 33 g/dL (31-37) Red Cell Distribution Width 14.3 % (11.5-14.5) Platelet Count 170 x10^3/uL (140-400) Neutrophils (%) (Auto) 70 % (31-73) Lymphocytes (%) (Auto) 16 % (24-48) Monocytes (%) (Auto) 9 % (0-9) Eosinophils (%) (Auto) 4 % (0-3) Basophils (%) (Auto) 1 % (0-3) Neutrophils # (Auto) 5.0 x10^3/uL (1.8-7.7) Lymphocytes # (Auto) 1.1 x10^3/uL (1.0-4.8) Monocytes # (Auto) 0.7 x10^3/uL (0.0-1.1) Eosinophils # (Auto) 0.3 x10^3/uL (0.0-0.7) Basophils # (Auto) 0.0 x10^3/uL (0.0-0.2) Sodium Level 138 mmol/L (136-145) Potassium Level 3.3 mmol/L (3.5-5.1) Chloride Level 104 mmol/L (98-107) Carbon Dioxide Level 27 mmol/L (21-32) Anion Gap 7 (6-14) Blood Urea Nitrogen 28 mg/dL (7-20) Creatinine 1.4 mg/dL (0.6-1.0) Estimated GFR (Cockcroft-Gault) 35.5 Glucose Level 90 mg/dL (70-99) Calcium Level 8.3 mg/dL (8.5-10.1) Brief Hospital Course Ms. Pineda is a 89 old who has a history of spastic paralysis since and developed arthritis later in life and really became immobile most recently and now she transfers with a lift from bed to chair, Rafy lift at her nursing facility. admit with a new right shoulder pain and x-rays obtained , found her to have a right shoulder dislocation. unable to reduce in ER, taken to OR Dr. Roman, then pain, weakness, req. covid screen held up DC Discharge Information Condition at Discharge: Improved Disposition/Orders: D/C to Another Facility (skilled) Scheduled Baclofen (Baclofen) 10 Mg Tablet, 10 MG PO QHS for MUSCLE RELAXER, #30 Ref 0 (Reported) Entered as Reported by: KAYLAH BELL RP on 07/19/181255 Bimatoprost (Lumigan) 2.5 Ml Drops, 1 DROP EACHEYE QHS, #2.5 Ref 3 (Reported) Entered as Reported by: KAYLAH BELL RPH on 07/19/18 125 Last Action: Converted on 05/19/20605 by STEFAN DORADO MD Carbamazepine (Tegretol) 200 Mg Tablet, 100 MG PO TID, #20 Prescribed by: BRANDI MAJOR on 08/31/14 1241 Last Action: Continued on 05/19/20605 by STEFAN DORADO MD Clonidine Hcl (Catapres) 0.1 Mg Tablet, 0.1 MG PO DAILY, #30 Prescribed by: BRANDI MAJOR on 08/31/14 1241 Dextran 70/Hypromellose (Artificial Tears Eye Drops) 15 Ml Drops, 1 DROP EACHEYE TID, #30 Ref 5 (Reported) Entered as Reported by: KAYLAH BELL RP on 07/19/18 1256 Last Action: Converted on 05/19/20605 by STEFAN DORADO MD Docusate Sodium (Colace) 100 Mg Capsule, 100 MG PO BID, #60 Prescribed by: BRANDI MAJOR on 08/31/14 1241 Ferrous Sulfate (Ferrous Sulfate) 325 Mg Tablet, 325 MG PO DAILY for anemia, (Reported) Entered as Reported by: SHUBHAM FLYNN on 05/19/20516 Last Action: New Order on 05/19/20516 by SHUBHAM FLYNN Furosemide (Furosemide) 40 Mg Tablet, 40 MG PO DAILY for edema, (Reported) Entered as Reported by: SHUBHAM FLYNN on 05/19/20516 Last Action: New Order on 05/19/20516 by SHUBHAM FLYNN Levetiracetam (Keppra) 250 Mg Tablet, 250 MG PO BID, #60 Prescribed by: BRANDI MAJOR on 08/31/141240 Last Action: Continued on 05/19/20605 by STEFAN DORADO MD Multivitamin (Multivitamins) 1 Each Tablet, 1 EACH PO DAILY, (Reported) Entered as Reported by: KAYLAH BELL RPH on 07/19/181255 Last Action: Converted on 05/19/20605 by STEFAN DORADO MD Potassium Chloride (Potassium Chloride ) 10 Meq Capsule.er, 10 MEQ PO DAILY, (Reported) Entered as Reported by: DALLAS CHA on 08/15/14 0401 Scheduled PRN Acetaminophen (Tylenol) 325 Mg Tablet, 650 MG PO PRN Q4HRS PRN for FEVER, #20 Prescribed by: BRANDI MAJOR on 08/31/14 1241 Ondansetron (Zofran Odt) 4 Mg Tab.rapdis, 4 MG PO PRN Q4HRS PRN for NAUSEA/VOMITING, #14 Prescribed by: BRANDI MAJOR on 08/31/14 1241 Polyethylene Glycol 3350 (Miralax) 17 Gm Powd.pack, 1 PKT PO PRN DAILY PRN for CONSTIPATION, (Reported) Entered as Reported by: KAYLAH BELL RPH on 07/19/181255 Last Action: Continued on 05/19/20605 by STEFAN DORADO MD Patient Instructions Patient Instructions marina BREEN face to facemask eval Justicifation of Admission Dx: Justifications for Admission: Justification of Admission Dx: Yes PEARL VARGAS MD May 23, 2020 12:27
--- NOTE | 2020-05-23 12:31 | SNU/HH DC ---
DISCHARGE ORDERS DISCHARGE INFORMATION: DISCHARGE DATE: May 23, 2020 FINAL DIAGNOSIS shoulder dislocation spastic paralysis arthritis dementia Problems Medical Problems: (1) Shoulder dislocation Status: Acute CONDITION ON DISCHARGE: Stable CODE STATUS: Code Status: DNR/DNI LONG-TERM: SNF STAY <30 DAYS: Yes POST DISCHARGE ORDERS: ACTIVITY ORDERS: Activity as tolerated DIET AFTER DISCHARGE: Cardiac CHECKS AFTER DISCHARGE: CHECKS AFTER DISCHARGE: Check blood press - daily, Check blood sugar, ac/hs, Check your Temp as needed TREATMENT/EQUIPMENT ORDERS: Physical Therapy For: Evalulation/Treatment Occupational Therapy For: Evaluation/Treatment DISCHARGE MEDICATIONS: Home Meds Active Scripts Ondansetron (ZOFRAN ODT) 4 Mg Tab.rapdis, 4 MG PO PRN Q4HRS PRN for NAUSEA/VOMITING, #14 BOT Prov:BRANDI MAJOR MD 08/31/14 Levetiracetam (KEPPRA) 250 Mg Tablet, 250 MG PO BID, #60 BOT Prov:BRANDI MAJOR MD 08/31/14 Docusate Sodium (COLACE) 100 Mg Capsule, 100 MG PO BID, #60 BOT Prov:BRANDI MAJOR MD 08/31/14 Clonidine Hcl (CATAPRES) 0.1 Mg Tablet, 0.1 MG PO DAILY, #30 BOT Prov:BRANDI MAJOR MD 08/31/14 Carbamazepine (TEGRETOL) 200 Mg Tablet, 100 MG PO TID, #20 BOT Prov:BRANDI MAJOR MD 08/31/14 Acetaminophen (TYLENOL) 325 Mg Tablet, 650 MG PO PRN Q4HRS PRN for FEVER, #20 BOT Prov:BRANDI MAJOR MD 08/31/14 Reported Medications Furosemide (FUROSEMIDE) 40 Mg Tablet, 40 MG PO DAILY for edema, TAB 05/19/20 Ferrous Sulfate (FERROUS SULFATE) 325 Mg Tablet, 325 MG PO DAILY for anemia, TAB 05/19/20 Dextran 70/Hypromellose (ARTIFICIAL TEARS EYE DROPS) 15 Ml Drops, 1 DROP EACHEYE TID, #30 ML 5 Refills 07/19/18 Bimatoprost (LUMIGAN) 2.5 Ml Drops, 1 DROP EACHEYE QHS, #2.5 ML 3 Refills 07/19/18 Multivitamin (MULTIVITAMINS) 1 Each Tablet, 1 EACH PO DAILY, TAB 07/19/18 Polyethylene Glycol 3350 (MIRALAX) 17 Gm Powd.pack, 1 PKT PO PRN DAILY PRN for CONSTIPATION, PKT 07/19/18 Baclofen (BACLOFEN) 10 Mg Tablet, 10 MG PO QHS for MUSCLE RELAXER, #30 TAB 0 Refills 07/19/18 Potassium Chloride (POTASSIUM CHLORIDE ) 10 Meq Capsule.er, 10 MEQ PO DAILY, TAB.SR 08/15/14 PEARL VARGAS MD May 23, 2020 12:31
--- NOTE | 2020-05-23 14:24 | NUR ---
SW following. Spoke with RN and reviewed chart. Coordinated care with Dr. Kwok. Pt to discharge today to SNU with transition back to LTC at [facility], , (fax). SW phoned and faxed discharge orders. Packet copied and ready to be sent with pt. Pt to transport via the facility by wc on room air and on oral medications at 1500. RN to call report. No further SW needs at this time. Addendum: 05/23/20 at 1445 by ULISES LAZARO Spoke with pt and pt's dtr and they are agreeable to discharge plan and stated no further SW needs at this time.
[2020-05-23 15:15] VITALS: BP 115/63
--- NOTE | 2020-05-23 15:27 | PDOC ---
PROGRESS NOTES Chief Complaint Chief Complaint Shoulder dislocation unable to be reduced by ED physician Aniket Moran pending COPD Hypertension Anemia CHF Osteoarthritis GERD Anxiety Depression Seizures groin rash, tinea, getting nystatin History of Present Illness History of Present Illness 05/23, DC to skilled 05/22/20 Patient seen and examined Chart reviewed Discussed with RN Discussed discharge plan with her daughter 05/20/2020 Patient seen and examined Chart reviewed Discussed with RN 05/19/20 Patient seen and examined, appears confused Chart reviewed Discussed with RN Shoulder dislocation unable to be reduced by ED physician Aniket Moran pending COPD Hypertension Anemia CHF Osteoarthritis GERD Anxiety Depression Seizures Vitals Vitals Vital Signs Date Time Temp Pulse Resp B/P (MAP) Pulse Ox O2 Delivery O2 Flow Rate FiO2 05/23/20 11:16 98.1 73 17 118/65 (82) 94 Room Air 98.1 05/22/20 08:00 2.0 Physical Exam General: Alert, Oriented X3, Cooperative, mild distress Heart: Regular rate, Normal S1, Normal S2, No murmurs Lungs: Clear Abdomen: Soft, No tenderness Extremities: No edema, Normal pulses Skin: No rashes, No significant lesion Labs LABS Laboratory Tests Test 05/23/20 03:30 White Blood Count 7.2 x10^3/uL (4.0-11.0) Red Blood Count 3.55 x10^6/uL (3.50-5.40) Hemoglobin 10.8 g/dL (12.0-15.5) Hematocrit 32.5 % (36.0-47.0) Mean Corpuscular Volume 92 fL (79-100) Mean Corpuscular Hemoglobin 31 pg (25-35) Mean Corpuscular Hemoglobin Concent 33 g/dL (31-37) Red Cell Distribution Width 14.3 % (11.5-14.5) Platelet Count 170 x10^3/uL (140-400) Neutrophils (%) (Auto) 70 % (31-73) Lymphocytes (%) (Auto) 16 % (24-48) Monocytes (%) (Auto) 9 % (0-9) Eosinophils (%) (Auto) 4 % (0-3) Basophils (%) (Auto) 1 % (0-3) Neutrophils # (Auto) 5.0 x10^3/uL (1.8-7.7) Lymphocytes # (Auto) 1.1 x10^3/uL (1.0-4.8) Monocytes # (Auto) 0.7 x10^3/uL (0.0-1.1) Eosinophils # (Auto) 0.3 x10^3/uL (0.0-0.7) Basophils # (Auto) 0.0 x10^3/uL (0.0-0.2) Sodium Level 138 mmol/L (136-145) Potassium Level 3.3 mmol/L (3.5-5.1) Chloride Level 104 mmol/L (98-107) Carbon Dioxide Level 27 mmol/L (21-32) Anion Gap 7 (6-14) Blood Urea Nitrogen 28 mg/dL (7-20) Creatinine 1.4 mg/dL (0.6-1.0) Estimated GFR (Cockcroft-Gault) 35.5 Glucose Level 90 mg/dL (70-99) Calcium Level 8.3 mg/dL (8.5-10.1) Assessment and Plan Assessmemt and Plan Problems Medical Problems: (1) Shoulder dislocation Status: Acute Comment Review of Relevant I have reviewed the following items frederic (where applicable) has been applied. Labs Laboratory Tests Test 05/22/20 03:35 05/23/20 03:30 White Blood Count 8.0 x10^3/uL (4.0-11.0) 7.2 x10^3/uL (4.0-11.0) Red Blood Count 3.80 x10^6/uL (3.50-5.40) 3.55 x10^6/uL (3.50-5.40) Hemoglobin 11.7 g/dL (12.0-15.5) 10.8 g/dL (12.0-15.5) Hematocrit 35.2 % (36.0-47.0) 32.5 % (36.0-47.0) Mean Corpuscular Volume 93 fL (79-100) 92 fL (79-100) Mean Corpuscular Hemoglobin 31 pg (25-35) 31 pg (25-35) Mean Corpuscular Hemoglobin Concent 33 g/dL (31-37) 33 g/dL (31-37) Red Cell Distribution Width 14.2 % (11.5-14.5) 14.3 % (11.5-14.5) Platelet Count 146 x10^3/uL (140-400) 170 x10^3/uL (140-400) Neutrophils (%) (Auto) 67 % (31-73) 70 % (31-73) Lymphocytes (%) (Auto) 19 % (24-48) 16 % (24-48) Monocytes (%) (Auto) 10 % (0-9) 9 % (0-9) Eosinophils (%) (Auto) 3 % (0-3) 4 % (0-3) Basophils (%) (Auto) 0 % (0-3) 1 % (0-3) Neutrophils # (Auto) 5.4 x10^3/uL (1.8-7.7) 5.0 x10^3/uL (1.8-7.7) Lymphocytes # (Auto) 1.5 x10^3/uL (1.0-4.8) 1.1 x10^3/uL (1.0-4.8) Monocytes # (Auto) 0.8 x10^3/uL (0.0-1.1) 0.7 x10^3/uL (0.0-1.1) Eosinophils # (Auto) 0.3 x10^3/uL (0.0-0.7) 0.3 x10^3/uL (0.0-0.7) Basophils # (Auto) 0.0 x10^3/uL (0.0-0.2) 0.0 x10^3/uL (0.0-0.2) Sodium Level 141 mmol/L (136-145) 138 mmol/L (136-145) Potassium Level 3.6 mmol/L (3.5-5.1) 3.3 mmol/L (3.5-5.1) Chloride Level 104 mmol/L (98-107) 104 mmol/L (98-107) Carbon Dioxide Level 28 mmol/L (21-32) 27 mmol/L (21-32) Anion Gap 9 (6-14) 7 (6-14) Blood Urea Nitrogen 23 mg/dL (7-20) 28 mg/dL (7-20) Creatinine 1.1 mg/dL (0.6-1.0) 1.4 mg/dL (0.6-1.0) Estimated GFR (Cockcroft-Gault) 46.9 35.5 Glucose Level 75 mg/dL (70-99) 90 mg/dL (70-99) Calcium Level 8.6 mg/dL (8.5-10.1) 8.3 mg/dL (8.5-10.1) Magnesium Level 2.0 mg/dL (1.8-2.4) Triglycerides Level 138 mg/dL (0-150) Cholesterol Level 220 mg/dL (0-200) LDL Cholesterol, Calculated 144 mg/dL (0-100) VLDL Cholesterol, Calculated 28 mg/dL (0-40) Non-HDL Cholesterol Calculated 172 mg/dL (0-129) HDL Cholesterol 48 mg/dL (40-60) Cholesterol/HDL Ratio 4.6 Laboratory Tests Test 05/23/20 03:30 White Blood Count 7.2 x10^3/uL (4.0-11.0) Red Blood Count 3.55 x10^6/uL (3.50-5.40) Hemoglobin 10.8 g/dL (12.0-15.5) Hematocrit 32.5 % (36.0-47.0) Mean Corpuscular Volume 92 fL (79-100) Mean Corpuscular Hemoglobin 31 pg (25-35) Mean Corpuscular Hemoglobin Concent 33 g/dL (31-37) Red Cell Distribution Width 14.3 % (11.5-14.5) Platelet Count 170 x10^3/uL (140-400) Neutrophils (%) (Auto) 70 % (31-73) Lymphocytes (%) (Auto) 16 % (24-48) Monocytes (%) (Auto) 9 % (0-9) Eosinophils (%) (Auto) 4 % (0-3) Basophils (%) (Auto) 1 % (0-3) Neutrophils # (Auto) 5.0 x10^3/uL (1.8-7.7) Lymphocytes # (Auto) 1.1 x10^3/uL (1.0-4.8) Monocytes # (Auto) 0.7 x10^3/uL (0.0-1.1) Eosinophils # (Auto) 0.3 x10^3/uL (0.0-0.7) Basophils # (Auto) 0.0 x10^3/uL (0.0-0.2) Sodium Level 138 mmol/L (136-145) Potassium Level 3.3 mmol/L (3.5-5.1) Chloride Level 104 mmol/L (98-107) Carbon Dioxide Level 27 mmol/L (21-32) Anion Gap 7 (6-14) Blood Urea Nitrogen 28 mg/dL (7-20) Creatinine 1.4 mg/dL (0.6-1.0) Estimated GFR (Cockcroft-Gault) 35.5 Glucose Level 90 mg/dL (70-99) Calcium Level 8.3 mg/dL (8.5-10.1) Medications Current Medications Fentanyl Citrate (Fentanyl 2ml Vial) 50 mcg 1X ONCE IM Last administered on 05/19/20at 01:42; Start 05/19/20 at 01:15; Stop 05/19/20 at 01:17; Status DC Propofol (Diprivan) 200 mg 1X ONCE IV Last administered on 05/19/20at 02:28; Start 05/19/20 at 01:45; Stop 05/19/20 at 01:46; Status DC Fentanyl Citrate (Fentanyl 2ml Vial) 50 mcg 1X ONCE IVP Last administered on 05/19/20at 02:27; Start 05/19/20 at 02:30; Stop 05/19/20 at 02:55; Status DC Fentanyl Citrate (Fentanyl 2ml Vial) 50 mcg PRN Q1HR PRN IV PAIN; Start 05/19/20 at 02:30; Stop 05/20/20 at 02:29; Status DC Ondansetron HCl (Zofran) 4 mg PRN Q4HRS PRN IV NAUSEA/VOMITING; Start 05/19/20 at 06:15 Acetaminophen (Tylenol) 650 mg PRN Q4HRS PRN PO TEMP OVER 100.4F OR MILD PAIN; Start 05/19/20 at 06:15 Carbamazepine (TEGretol) 100 mg TID PO Last administered on 05/23/20at 09:24; Start 05/19/20 at 09:00 Levetiracetam (Keppra) 250 mg BID PO Last administered on 05/23/20at 09:25; Start 05/19/20 at 09:00 Polyethylene Glycol (miraLAX PACKET) 17 gm PRN DAILY PRN PO CONSTIPATION; Start 05/19/20 at 06:15 Latanoprost (Xalatan) 1 drop QHS OU Last administered on 05/22/20at 21:11; Start 05/19/20 at 21:00 Artificial Tears (Artificial Tears) 1 drop TID OU Last administered on 05/23/20at 09:25; Start 05/19/20 at 09:00 Multivitamins (Thera M Plus) 1 tab DAILY PO Last administered on 05/23/20at 09:25; Start 05/19/20 at 09:00 Ondansetron HCl (Zofran) 4 mg PRN Q6HRS PRN IVP NAUSEA/VOMITING; Start 05/20/20 at 07:15; Stop 05/21/20 at 07:14; Status DC Fentanyl Citrate (Fentanyl 2ml Vial) 25 mcg PRN Q5MIN PRN IVP MILD PAIN 1-3; Start 05/20/20 at 07:15; Stop 05/21/20 at 07:14; Status DC Fentanyl Citrate (Fentanyl 2ml Vial) 50 mcg PRN Q5MIN PRN IVP MODERATE TO SEVERE PAIN; Start 05/20/20 at 07:15; Stop 05/21/20 at 07:14; Status DC Morphine Sulfate (Morphine Sulfate) 1 mg PRN Q10MIN PRN IVP SEVERE PAIN 7-10; Start 05/20/20 at 07:15; Stop 05/21/20 at 07:14; Status DC Ringer's Solution 1,000 ml @ 30 mls/hr Q24H IV Last administered on 05/20/20at 16:35; Start 05/20/20 at 07:06; Stop 05/20/20 at 19:05; Status DC Lidocaine HCl (Xylocaine-Mpf 1% 2ml Vial) 2 ml 1X PRN PRN ID IV START; Start 05/20/20 at 07:15; Stop 05/21/20 at 07:14; Status DC Hydromorphone HCl (Dilaudid) 0.5 mg PRN Q10MIN PRN IVP SEV PAIN, Second choice; Start 05/20/20 at 07:15; Stop 05/21/20 at 07:14; Status DC Prochlorperazine Edisylate (Compazine) 5 mg PACU PRN PRN IVP NAUSEA, MRX1; Start 05/20/20 at 07:15; Stop 05/21/20 at 07:14; Status DC Metoprolol Tartrate (Lopressor Vial) 5 mg 1X ONCE IVP Last administered on 05/20/20at 12:34; Start 05/20/20 at 12:30; Stop 05/20/20 at 12:31; Status DC Metoprolol Tartrate (Lopressor) 25 mg BID PO Last administered on 05/22/20at 08:55; Start 05/20/20 at 21:00; Stop 05/22/20 at 12:07; Status DC Succinylcholine Chloride (Anectine) 200 mg STK-MED ONCE .ROUTE ; Start 05/20/20 at 13:20; Stop 05/20/20 at 13:21; Status DC Propofol (Diprivan) 200 mg STK-MED ONCE IV ; Start 05/20/20 at 13:20; Stop 05/20/20 at 13:21; Status DC Lidocaine HCl (Lidocaine Pf 2% Vial) 5 ml STK-MED ONCE .ROUTE ; Start 05/20/20 at 13:20; Stop 05/20/20 at 13:21; Status DC Aspirin (Ecotrin) 81 mg DAILYWBKFT PO Last administered on 05/23/20at 09:24; Start 05/20/20 at 15:30 Fentanyl Citrate (Fentanyl 2ml Vial) 100 mcg STK-MED ONCE .ROUTE ; Start 05/20/20 at 16:41; Stop 05/20/20 at 16:41; Status DC Ondansetron HCl (Zofran) 4 mg STK-MED ONCE .ROUTE ; Start 05/20/20 at 16:52; Stop 05/20/20 at 16:52; Status DC Phenylephrine HCl (PHENYLEPHRINE in 0.9% NACL PF) 1 mg STK-MED ONCE IV ; Start 05/20/20 at 16:55; Stop 05/20/20 at 16:55; Status DC Nystatin (Nystop) 1 chio BID TP Last administered on 05/23/20at 09:00; Start 05/20/20 at 21:00 Tramadol HCl (Ultram) 50 mg PRN Q6HRS PRN PO MODERATE PAIN 4-6 Last administered on 05/23/20at 09:32; Start 05/21/20 at 13:00 Oxycodone/ Acetaminophen (Percocet 5/325) 1 tab PRN Q4HRS PRN PO MODERATE TO SEVERE PAIN Last administered on 05/22/20at 17:54; Start 05/21/20 at 17:45 Metoprolol Succinate (Toprol Xl) 50 mg DAILY PO Last administered on 05/23/20at 09:25; Start 05/22/20 at 13:00 Lisinopril (Prinivil) 10 mg DAILY PO Last administered on 05/23/20at 09:25; Start 05/22/20 at 13:00 Atorvastatin Calcium (Lipitor) 20 mg QHS PO ; Start 05/23/20 at 21:00 Potassium Chloride (Klor-Con) 40 meq 1X ONCE PO Last administered on 05/23/20at 09:24; Start 05/23/20 at 08:15; Stop 05/23/20 at 08:21; Status DC Active Scripts Active Zofran Odt (Ondansetron) 4 Mg Tab.rapdis 4 Mg PO PRN Q4HRS PRN Keppra (Levetiracetam) 250 Mg Tablet 250 Mg PO BID Colace (Docusate Sodium) 100 Mg Capsule 100 Mg PO BID Catapres (Clonidine Hcl) 0.1 Mg Tablet 0.1 Mg PO DAILY Tegretol (Carbamazepine) 200 Mg Tablet 100 Mg PO TID Tylenol (Acetaminophen) 325 Mg Tablet 650 Mg PO PRN Q4HRS PRN Reported Furosemide 40 Mg Tablet 40 Mg PO DAILY Ferrous Sulfate 325 Mg Tablet 325 Mg PO DAILY Artificial Tears Eye Drops (Dextran 70/Hypromellose) 15 Ml Drops 1 Drop EACHEYE TID Lumigan (Bimatoprost) 2.5 Ml Drops 1 Drop EACHEYE QHS Multivitamins (Multivitamin) 1 Each Tablet 1 Each PO DAILY Miralax (Polyethylene Glycol 3350) 17 Gm Powd.pack 1 Pkt PO PRN DAILY PRN Baclofen 10 Mg Tablet 10 Mg PO QHS Potassium Chloride (Potassium Chloride) 10 Meq Capsule.er 10 Meq PO DAILY Vitals/I & O Vital Sign - Last 24 Hours 05/22/20 05/22/20 05/22/20 05/22/20 16:05 17:09 17:54 18:59 O2 Delivery Room Air Room Air Room Air Room Air 05/22/20 05/22/20 05/22/20 05/23/20 19:00 20:00 23:01 03:00 Temp 98.0 98.3 98.0 98.0 98.3 98.0 Pulse 79 85 80 Resp 18 18 18 B/P (MAP) 109/48 (68) 110/52 (71) 115/48 (70) Pulse Ox 90 90 91 O2 Delivery Room Air Room Air Room Air Room Air 05/23/20 05/23/20 05/23/20 05/23/20 07:23 09:25 09:25 09:32 Temp 98.2 98.2 Pulse 78 78 78 Resp 17 19 B/P (MAP) 108/52 (70) 108/52 108/52 Pulse Ox 92 93 O2 Delivery Room Air Room Air 05/23/20 11:16 Temp 98.1 98.1 Pulse 73 Resp 17 B/P (MAP) 118/65 (82) Pulse Ox 94 O2 Delivery Room Air Intake and Output0 05/22/20 05/22/20 05/23/20 15:00 23:00 07:00 Intake Total 50 ml 800 ml 0 ml Output Total 400 ml Balance 50 ml 800 ml -400 ml Justicifation of Admission Dx: Justifications for Admission: Justification of Admission Dx: Yes PEARL VARGAS MD May 23, 2020 15:27
--- NOTE | 2020-05-23 15:35 | NUR ---
REPORT CALLED TO REMIGIO (RECEIVING NURSE) AT [facility], QUESTIONS AND CONCERNS ANSWERED, PATIENTS' DAUGHTER AT THE BEDSIDE, ALL PERSONAL BELONGINGS GATHERED BY THE PATIENTS' DAUGHTER AND PLACED IN BAGS FOR DISCHARGE, SALINE LOCK REMOVED PER [employer] SPECIALIST ON THE UNIT.
[2020-05-23] MEDS: oxyCODONE/APAP 5/325 1 TAB TABLET PO PRN (15:54)
--- NOTE | 2020-05-23 16:04 | RAD ---
EXAM: Right upper extremity venous Doppler sonogram. HISTORY: Pain and swelling. TECHNIQUE: Ohlcomb scale and color Doppler sonographic evaluation of the right upper extremity veins with spectral waveform analysis was performed. FINDINGS: There is superficial venous thrombosis involving the basilic vein right upper arm to the antecubital fossa. There is normal color flow, normal compressibility and there are minimal spectral waveforms within the deep veins. IMPRESSION: 1. Superficial venous thrombosis involving the basilic vein from the upper arm to the antecubital fossa 2. No evidence of upper extremity deep venous thrombosis. Electronically signed by: Abbie Pham MD (05/23/2020 4:01 PM) [id number]
[2020-05-23] MEDS ORDERED: ATORVASTATIN CALCIUM 20 MG TABLET PO SCH (21:00)
== END 2020-05-23 16:01 | DRG 563 ==
LOC: ER 00:58 → 6 SOUTH 03:56 → OBSVTOIN 09:24 → 5 NORTH 05-20 16:43
PROVIDERS: ADMIT Internal Medicine; ATTEND Internal Medicine
PROC: 0RSJXZZ Reposition Right Shoulder Joint, External Approach (ICD-10-PCS; principal; 2020-05-20 16:15)
DX: S43.014A Anterior dislocation of right humerus, initial encounter (principal); G81.90 Hemiplegia, unspecified affecting unspecified side; I13.0 Hypertensive heart and chronic kidney disease with heart failure and stage 1 through stage 4 chronic kidney disease, or unspecified chronic kidney disease; I50.42 Chronic combined systolic (congestive) and diastolic (congestive) heart failure; B35.9 Dermatophytosis, unspecified; D64.9 Anemia, unspecified; F03.90 Unspecified dementia, unspecified severity, without behavioral disturbance, psychotic disturbance, mood disturbance, and anxiety; F32.9 Major depressive disorder, single episode, unspecified; F41.9 Anxiety disorder, unspecified; G40.909 Epilepsy, unspecified, not intractable, without status epilepticus; I48.0 Paroxysmal atrial fibrillation; J44.9 Chronic obstructive pulmonary disease, unspecified; K21.9 Gastro-esophageal reflux disease without esophagitis; K22.70 Barrett's esophagus without dysplasia; M19.90 Unspecified osteoarthritis, unspecified site; N18.9 Chronic kidney disease, unspecified; Z20.828 Contact with and (suspected) exposure to other viral communicable diseases; Z79.899 Other long term (current) drug therapy; Z82.49 Family history of ischemic heart disease and other diseases of the circulatory system; Z86.73 Personal history of transient ischemic attack (TIA), and cerebral infarction without residual deficits
CPT/HCPCS: 23650; 36415; 73020; 73030; 76000; 80048; 80053; 80061; 83735; 85007; 85025; 85610; 85730; 87426; 93306; 93971; 96372; 96374; 99152; 99285; A7015; G0378; G0379; J0330; J2370; J2405; J2704; J3010; J3490; J7120; 92610-GN; U0003-CS

== ENCOUNTER 2020-06-24 05:17 | Inpatient (IN) | payer MEDICARE, MEDICAID ==
[~2020-06-24] VITALS: Ht 167.6 cm; Wt 113.0 kg
--- NOTE | 2020-06-24 05:32 | PHYS DOC ---
Past Medical History Past Medical History: Anemia, Anxiety, Arthritis, CHF, Constipation, COPD, Depression, GERD, Hypertension, Seizure Additional Past Medical Histor: spastic paralysis HEMIPLEGIA, HEART FAILURE, DYSPHAGIA, OSTEOARTHRITIS (CY HERNANDES DO) Past Surgical History: Other Additional Past Surgical Histo: UNKNOWN (CY HERNANDES DO) Smoking Status: Never Smoker Alcohol Use: None Drug Use: None (CY HERNANDES DO) General Adult EDM: Chief Complaint: ALTERED MENTAL STATUS HPI: HPI: 89 yo F PMH Covid 19 (03/2020), COPD, Hypertension, Anemia, CHF, OA, GERD, Anxiety, Depression, Seizures, and cognitive communication deficit, presents to the ED from [facility] with concern for altered mental status and yelling. Meds reviewed patient is not on any anticoagulants. MS reports pt hasn't been the same since since admitted 04/23/2020 for right shoulder dislocation. Pt is usually alert to person and can answer simple questions. Pt was yelling out at 4pm that she had chest pain and oxygen saturation was saturating 88% to 92% on 2 L nasal cannula. NH RN believes at 11pm pt was at her baseline. ROS: Unable to be obtained - mental status? dementia? medical condition? EMR reviewed-EF is 20-25%, global hypokinesis of the left ventricle, 05/21/2020 echo. (CY HERNANDES DO) Heart Score: Risk Factors: Risk Factors: DM, Current or recent (<one month) smoker, HTN, HLP, family history of CAD, obesity. Risk Scores: Score 0 - 3: 2.5% MACE over next 6 weeks - Discharge Home Score 4 - 6: 20.3% MACE over next 6 weeks - Admit for Clinical Observation Score 7 - 10: 72.7% MACE over next 6 weeks - Early Invasive Strategies (CY HERNANDES DO) Allergies: Allergies: Allergies Coded Allergies Type Severity Reaction Last Updated Verified grapefruit Allergy Intermediate Rash 05/20/20 Yes lemon Allergy Intermediate 05/20/20 Yes chicken ranch Allergy Intermediate Rash 05/20/20 Yes orange flavor Allergy Intermediate 11/25/17 Yes orange juice Allergy Intermediate 05/20/20 Yes (CY HERNANDES DO) Physical Exam: PE: Constitutional: tachycardic, alert to self, follows commands, localized to pain with RUE IV placement, obese HENT: Normocephalic, atraumatic, bilateral external ears normal, oropharynx dry Eyes: PERRLA, EOMI, conjunctiva normal, no discharge. [] Neck: Normal range of motion, no tenderness, supple, no stridor. [] Cardiovascular: tachycardic Lungs & Thorax: Bilateral breath sounds clear to auscultation [] Abdomen: Bowel sounds normal, soft, no tenderness, no masses, no pulsatile masses. [] Skin: Warm, dry, no erythema, no rash. [] Back: No tenderness, right shoulder deformity Extremities: No tenderness, no cyanosis, no clubbing, ROM intact, no edema. [] Neurologic: Alert, normal motor function, normal sensory function, no focal deficits noted. [] Urine sample w/pyruia ([facility] EKG: EKG: Regular sinus tachycardic rhythm with left bundle branch block, QTC 493 and 502, T wave inversion V5 and V6, 1 aVL, no ST elevations or ST depressions, all T wave inversion in aVL and V6, compared with June 2018 EKG ([facility]) Radiology/Procedures: Radiology/Procedures: [] [facility] Radiology/Procedures: Indication: Vascular access, septic shock. Consent: The patient provided consent for this procedure. Procedure: The patient was positioned appropriately and the skin over the right side chest was prepped and draped in a sterile fashion. Local anesthesia was used. A large bore needle was used to identify the right subclavian vein. A guide wire was then inserted into the vein through the needle. A triple lumen ca theter was then inserted into the vessel over the guide wire using the Seldinger technique. All ports showed good, free flowing blood return and were flushed with saline solution. The catheter was then securely fastened to the skin with sutures and covered with a sterile dressing. A post procedure X-ray was ordered. The patient tolerated the procedure well. Complications: none. Critical care time was [60] minutes which includes time at bedside, spent in discussion of patient's care with specialist and/or family members, with interpretation of laboratory and/or radiological studies and is exclusive of procedures. [facility] [address] [place] [address] IMAGING REPORT Signed PATIENT: OBDULIA HERNÁNDEZ ACCOUNT: [id number] : 1930 LOCATION: ER AGE: 89 SEX: F EXAM STATUS: REG ER ORD. PHYSICIAN: CHRISTIAN ALFARO DO REASON: abdominal pain, pneumoperitoneum PROCEDURE: CT ABDOMEN PELVIS WO CONTRAST CT Abdomen and Pelvis without contrast History: Abdominal pain, pneumoperitoneum Technique: Noncontrast CT imaging was performed of the abdomen and pelvis. Multiplanar images are reviewed. Exposure: One or more of the following individualized dose reduction techniques were utilized for this examination: 1. Automated exposure control 2. Adjustment of the mA and/or kV according to patient size 3. Use of iterative reconstruction technique. Comparison: Chest radiographs the same day Findings: There is some motion degradation, also artifact created by patient's left arm near sides. There is prominent pneumoperitoneum most notable of the superior right abdomen although also seen in the pelvis. Source of the free air is uncertain, no significant localized inflammatory type change about the bowel. However there is degree of mild wall prominence of the distal stomach and gastroduodenal junction, more focally thickened appearance and irregularity such as seen coronal image 18 series 4. There is mild perihepatic free fluid, appears somewhat complex and hyperdense (estimated density measurements about 30-40 Hounsfield units).Gallbladder is distended and there is cholelithiasis. Kidneys are atrophic, no hydronephrosis. There is questionable punctate inferior left renal calculus. Accurate evaluation of abdominal visceral organs is limited without intravenous contrast, no obvious focal abnormality of the liver, spleen, or pancreas. There is no adrenal nodularity. Bowel is not significantly dilated. There is coronary calcification. There is some atelectasis of the bilateral lung bases, mild lower lobe infiltrates difficult to exclude. There is bone demineralization. There is superior compression deformity of L2 and more centrally and superiorly of L3. There is multilevel lumbar facet degenerative change. There is mild lumbar levoscoliosis. Impression: 1. There is pneumoperitoneum evidence of bowel perforation, also mild complex appearing perihepatic fluid. Source is not certain although the distal stomach and gastroduodenal junction banegas are somewhat thickened, sequela of perforated ulcer possible. 2. Gallbladder is distended and there is cholelithiasis. 3. There is bilateral renal atrophy. 4. There is coronary calcification. 5. There is some atelectasis of the bilateral lung bases although mild infiltrates of the lower lobes difficult to exclude. 6. There is compression deformity of L2 and L3 vertebral bodies of uncertain chronicity. There is bone demineralization. Critical results were discussed with Dr. Alfaro at 06/24/2020 8:41 AM. Electronically signed by: Shakila Castro MD (06/24/2020 8:51 AM) [id number] DICTATED and SIGNED BY: SHAKILA CASTRO MD DATE: 06/24/20 0851 [facility] [address] [place], [place] [id number] IMAGING REPORT Signed PATIENT: OBDULIA HERNÁNDEZ ACCOUNT: [id number] : 1930 LOCATION: ER AGE: 89 SEX: F EXAM STATUS: REG ER ORD. PHYSICIAN: CHRISTIAN ALFARO DO REASON: post central line placement on right side chest PROCEDURE: CHEST AP ONLY CHEST AP ONLY INDICATION: Reason: post central line placement on right side chest . COMPARISON STUDY: 06/24/2020. FINDINGS: Life Support Devices: New right subclavian central venous catheter with tip overlying the inferior cavoatrial junction. Lungs: Low lung volume. Unchanged bibasilar opacities. Normal pulmonary vasculature. Pleura: No pleural effusion or pneumothorax. Heart and Mediastinum: Stable cardiomediastinal silhouette and great vessels. Abdomen: Stable pneumoperitoneum. IMPRESSION: 1. New right subclavian central venous catheter with tip overlying the inferior cavoatrial junction. No pneumothorax. 2. Low lung volume with stable bibasilar opacities. 3. Stable pneumoperitoneum. Electronically signed by: Shakila Houston MD (06/24/2020 8:02 AM) [facility] DICTATED and SIGNED BY: SHAKILA HOUSTON MD DATE: 06/24/20 0802 [facility] [address] [place] [address] IMAGING REPORT Signed PATIENT: OBDULIA HERNÁNDEZ ACCOUNT: [id number] : 1930 LOCATION: ER AGE: 89 SEX: F EXAM STATUS: REG ER ORD. PHYSICIAN: CY HERNANDES DO REASON: ams PROCEDURE: CT HEAD WO CONTRAST INDICATION: Reason: ams / Spl. Instructions: / History: COMPARISON: October 2017 TECHNIQUE: Axial CT images obtained through the head. One or more of the following individualized dose reduction techniques were utilized for this examination: 1. Automated exposure control; 2. Adjustment of the mA and/or kV according to patient size; 3. Use of iterative reconstruction technique. FINDINGS: Repeat demonstration of low-density within the left frontal region which could be from prior insult with associated encephalomalacia. Interval development of a large region of low density and volume loss within the right cerebral hemisphere. Diffuse dilatation of the ventricles is again seen. Focus of low density in the left occipital region is now seen as well. No definite acute intracranial hemorrhage. Repeat demonstration of bilateral thinning of the calvarium. Falx calcifications again seen. IMPRESSION: * No acute intracranial hemorrhage. * There is repeat demonstration of encephalomalacia within the left frontal region which can be seen with prior insult. There has been interval development of low density within the left occipital region as well as a large region of low density of the right cerebral hemisphere which could be secondary to an interval insult to the area such as infarct. This is a chronic appearance in the right middle cerebral artery territory and the left occipital region of low density has an indeterminate age appearance. MRI could be helpful to better evaluate the acuity of these findings. Electronically signed by: Corinne Vogt MD (06/24/2020 6:34 AM) [id number] DICTATED and SIGNED BY: CORINNE VOGT MD DATE: 06/24/20 0634 (CHRISTIAN ALFARO DO) Course & Med Decision Making: Course & Med Decision Making Pertinent Labs and Imaging studies reviewed. (See chart for details) Concern for altered mental status, possible chest pain. Due to heart rate and map of 61 on arrival, code sepsis was initiated. Broad-spectrum antibiotics and IV fluids ordered. No echo in EMR to review. EKG with sinus tachycardia and old left bundle, some new T wave inversions. All labs, images and urine studies are pending. Concern for UTI sepsis, cannot exclude shock. Due to shift change patient was signed out to Dr. Alfaro. (CY HERNANDES DO) Course & Med Decision Making Patient is an 89-year-old female who was sent here from care home due to altered mental status, she is DNR, she was found to have severe sepsis and septic shock, UTI, pneumoperitoneum consistent with perforated viscus. Patient was given IV fluid based on her ideal body mass index. She was given IV antibiotic in the ER.. Patient continued to have low blood pressure, central venous catheter was placed, Levophed drip was started. Patient will be admitted to hospital, ICU unit. General surgeon Dr. Jeremias Tran was consulted for perforated viscus. Dr. Benítez, hospitalist service, agreed to admit the patient. COVID-19 CRITERIA: The patient was evaluated during the global COVID-19 pandemic, and that diagnosis was suspected/considered upon their initial presentation. Their evaluation, treatment and testing was consistent with current guidelines for patients who present with complaints or symptoms that may be related to COVID-19. (CHRISTIAN ALFARO DO) Dragon Disclaimer: Dragon Disclaimer: This electronic medical record was generated, in whole or in part, using a voice recognition dictation system. (CY HERNANDES DO) Departure Departure Impression: Primary Impression: Perforated abdominal viscus Additional Impressions: Septic shock UTI (urinary tract infection) Ruled Out: AMS (altered mental status) Disposition: ADMITTED INPATIENT Admitting Physician: [facility] (Dr. BENÍTEZ) (CHRISTIAN ALFARO DO) Referrals: ZAIRE ARMSTRONG MD (PCP) Justicifation of Admission Dx: Justifications for Admission: Justification of Admission Dx: Yes (CY HERNANDES DO) Justification of Admission Dx: Yes Sepsis: Altered Mental Status Altered Mental Status: Altered Mental Status (CHRISTIAN ALFARO DO) CY HERNANDES DO Jun 24, 2020 05:31 CHRISTIAN ALFARO DO Jun 24, 2020 08:56
[2020-06-24] MEDS ORDERED: VANCOMYCIN PER PHARMACY MC PRN (05:45)
[2020-06-24 05:52] LABS: CLARITY,URINE TURBID
[2020-06-24 05:55] LABS: BARBITURATES NEG (NEG); BENZODIAZEPINES NEG (NEG); CANNABINOIDS NEG (NEG); COCAINE NEG (NEG); METHADONE NEG (NEG); OPIATES POS (NEG); PHENCYCLIDINE NEG (NEG)
[2020-06-24 05:56] LABS: AMPHETAMINE/METHAMPHETAMINE NEG (NEG)
[2020-06-24 05:59] LABS: BASO % 0 % (0-3); EOS % 0 % (0-3); HEMATOCRIT 33.6 % (36.0-47.0); HEMOGLOBIN 11.1 g/dL (12.0-15.5); LYMPH # 0.9 x10^3/uL (1.0-4.8); LYMPH % 8 % (24-48); MEAN CORPUSCULAR HEMOGLOBIN 31 pg (25-35); MEAN CORPUSCULAR HGB CONC 33 g/dL (31-37); MEAN CORPUSCULAR VOLUME 95 fL (79-100); MONO # 0.5 x10^3/uL (0.0-1.1); MONO % 5 % (0-9); NEUT % 87 % (31-73); PLATELET COUNT 428 x10^3/uL (140-400); RED BLOOD COUNT 3.54 x10^6/uL (3.50-5.40); RED CELL DISTRIBUTION WIDTH 17.3 % (11.5-14.5); WHITE BLOOD COUNT 11.5 x10^3/uL (4.0-11.0)
[2020-06-24] MEDS ORDERED: VANCOMYCIN 2 GM in IV NORMAL SALINE 500ML BAG 500 ML IV ONE (06:00)
[2020-06-24] MEDS ORDERED: IV NORMAL SALINE 1000ML BAG 1,000 ML IV ONE ×2 (06:00→07:00)
[2020-06-24] MEDS ORDERED: PIPERACILLIN/TAZOBACTAM 4.5 GM in IV NORMAL SALINE 100ML 100 ML IV ONE (06:00)
[2020-06-24 06:11] LABS: COLOR,URINE YELLOW
[2020-06-24 06:12] LABS: RBC,URINE 20-40 /HPF (0-2); WBC,URINE TNTC /HPF (0-4)
--- NOTE | 2020-06-24 06:12 | EKG ---
[facility] [address] [place] [address] Test Date: 2020-06-24 Test Time: 05:46:36 Pat Name: OBDULIA HERNÁNDEZ Department: Room: Gender: F Asphalt Raker: : 1930 Requested By: CY HERNANDES Order Number: [id number] Reading MD: Measurements Intervals [place] Rate: 116 P: AR: QRS: -14 QRSD: 150 T: 120 QT: 350 QTc: 493 Interpretive Statements IRREGULAR RHYTHM, NO P-WAVE FOUND LEFTWARD AXIS LEFT BUNDLE BRANCH BLOCK ABNORMAL ECG RI6.02 Compared to ECG 06/24/2020 05:40:55 No significant changes
[2020-06-24 06:13] LABS: BACTERIA,URINE MANY /HPF (0-FEW); SQUAMOUS EPITHELIAL CELL,UR MANY /LPF
[2020-06-24 06:19] LABS: ACETAMIN < 2 mcg/ml (10-30); ETHANOL < 10 mg/dL (0-10); SALIC 3.1 mg/dL (2.8-20.0)
--- NOTE | 2020-06-24 06:37 | RAD ---
INDICATION: Reason: ams / Spl. Instructions: / History: COMPARISON: October 2017 TECHNIQUE: Axial CT images obtained through the head. One or more of the following individualized dose reduction techniques were utilized for this examination: 1. Automated exposure control; 2. Adjustment of the mA and/or kV according to patient size; 3. Use of iterative reconstruction technique. FINDINGS: Repeat demonstration of low-density within the left frontal region which could be from prior insult with associated encephalomalacia. Interval development of a large region of low density and volume loss within the right cerebral hemisphere. Diffuse dilatation of the ventricles is again seen. Focus of low density in the left occipital region is now seen as well. No definite acute intracranial hemorrhage. Repeat demonstration of bilateral thinning of the calvarium. Falx calcifications again seen. IMPRESSION: * No acute intracranial hemorrhage. * There is repeat demonstration of encephalomalacia within the left frontal region which can be seen with prior insult. There has been interval development of low density within the left occipital region as well as a large region of low density of the right cerebral hemisphere which could be secondary to an interval insult to the area such as infarct. This is a chronic appearance in the right middle cerebral artery territory and the left occipital region of low density has an indeterminate age appearance. MRI could be helpful to better evaluate the acuity of these findings. Electronically signed by: Ever Vogt MD (06/24/2020 6:34 AM) [id number]
--- NOTE | 2020-06-24 06:42 | RAD ---
INDICATION: Reason: ams / Spl. Instructions: / History: COMPARISON: June 2018 FINDINGS: Single view of chest obtained. Free air is seen underneath the right hemidiaphragm. Hypoexpanded exam the lungs. Cardiac silhouette is enlarged. Linear opacities at the bilateral lung bases. IMPRESSION: * Intraperitoneal free air is identified. Consider CT to further evaluate given that bowel perforation is in the differential for this appearance. * Mild linear opacities at the bilateral lower lungs which could be from atelectasis or infiltrate. * Repeat demonstration of dislocation of the right shoulder. There is also superior migration of the left humerus which can be seen with chronic rotator cuff injury. Report called to the ER at 6:36 AM on date of exam. Electronically signed by: Ever Vogt MD (06/24/2020 6:39 AM) [id number]
[2020-06-24 06:53] LABS: % BANDS 1 % (0-9); % LYMPHS 8 % (24-48); % MONOS 1 % (0-10); % SEGS 90 % (35-66); ANISOCYTOSIS SLIGHT; PLT ESTIMATE ADEQUATE (ADEQUATE)
[2020-06-24 07:36] LABS: PROTHROMBIN TIME PATIENT 14.6 SEC (11.7-14.0)
[2020-06-24 07:38] LABS: CALCIUM 8.6 mg/dL (8.5-10.1); CREATININE 2.2 mg/dL (0.6-1.0); GFR 21.1; POTASSIUM 4.9 mmol/L (3.5-5.1)
[2020-06-24 07:43] LABS: ALBUMIN 2.4 g/dL (3.4-5.0); ALBUMIN/GLOBULIN RATIO 0.6 (1.0-1.7); TOTAL BILIRUBIN 0.6 mg/dL (0.2-1.0); TOTAL PROTEIN 6.3 g/dL (6.4-8.2)
--- NOTE | 2020-06-24 08:05 | RAD ---
CHEST AP ONLY INDICATION: Reason: post central line placement on right side chest . COMPARISON STUDY: 06/24/2020. FINDINGS: Life Support Devices: New right subclavian central venous catheter with tip overlying the inferior cavoatrial junction. Lungs: Low lung volume. Unchanged bibasilar opacities. Normal pulmonary vasculature. Pleura: No pleural effusion or pneumothorax. Heart and Mediastinum: Stable cardiomediastinal silhouette and great vessels. Abdomen: Stable pneumoperitoneum. IMPRESSION: 1. New right subclavian central venous catheter with tip overlying the inferior cavoatrial junction. No pneumothorax. 2. Low lung volume with stable bibasilar opacities. 3. Stable pneumoperitoneum. Electronically signed by: Ricco Houston MD (06/24/2020 8:02 AM) EDUARDO
[2020-06-24] MEDS ORDERED: NOREPINEPHRINE VIAL 8 MG in IV DEXTROSE 5% 250 ML IV ONE (08:30)
--- NOTE | 2020-06-24 08:55 | RAD ---
CT Abdomen and Pelvis without contrast History: Abdominal pain, pneumoperitoneum Technique: Noncontrast CT imaging was performed of the abdomen and pelvis. Multiplanar images are reviewed. Exposure: One or more of the following individualized dose reduction techniques were utilized for this examination: 1. Automated exposure control 2. Adjustment of the mA and/or kV according to patient size 3. Use of iterative reconstruction technique. Comparison: Chest radiographs the same day Findings: There is some motion degradation, also artifact created by patient's left arm near sides. There is prominent pneumoperitoneum most notable of the superior right abdomen although also seen in the pelvis. Source of the free air is uncertain, no significant localized inflammatory type change about the bowel. However there is degree of mild wall prominence of the distal stomach and gastroduodenal junction, more focally thickened appearance and irregularity such as seen coronal image 18 series 4. There is mild perihepatic free fluid, appears somewhat complex and hyperdense (estimated density measurements about 30-40 Hounsfield units).Gallbladder is distended and there is cholelithiasis. Kidneys are atrophic, no hydronephrosis. There is questionable punctate inferior left renal calculus. Accurate evaluation of abdominal visceral organs is limited without intravenous contrast, no obvious focal abnormality of the liver, spleen, or pancreas. There is no adrenal nodularity. Bowel is not significantly dilated. There is coronary calcification. There is some atelectasis of the bilateral lung bases, mild lower lobe infiltrates difficult to exclude. There is bone demineralization. There is superior compression deformity of L2 and more centrally and superiorly of L3. There is multilevel lumbar facet degenerative change. There is mild lumbar levoscoliosis. Impression: 1. There is pneumoperitoneum evidence of bowel perforation, also mild complex appearing perihepatic fluid. Source is not certain although the distal stomach and gastroduodenal junction banegas are somewhat thickened, sequela of perforated ulcer possible. 2. Gallbladder is distended and there is cholelithiasis. 3. There is bilateral renal atrophy. 4. There is coronary calcification. 5. There is some atelectasis of the bilateral lung bases although mild infiltrates of the lower lobes difficult to exclude. 6. There is compression deformity of L2 and L3 vertebral bodies of uncertain chronicity. There is bone demineralization. Critical results were discussed with Dr. Eid at 06/24/2020 8:41 AM. Electronically signed by: Ricco Alfaro MD (06/24/2020 8:51 AM) [id number]
[2020-06-24] MEDS ORDERED: ONDANSETRON PF 4 MG/2 ML VIAL. IV PRN (09:00)
[2020-06-24] MEDS ORDERED: IV NORMAL SALINE 1000ML BAG 1,000 ML IV SCH ×2 (09:00→12:56)
--- NOTE | 2020-06-24 09:33 | PHYS DOC ---
Date and Time of Reassessment Date: Jun 24, 2020 Time: 09:31 Fluid Challenge Is the fluid challenge complet: Yes IBW Target Volume Used: Yes BMI > 30: Yes Vital Signs Vital Signs: Vital Signs Date Time Temp Pulse Resp B/P (MAP) Pulse Ox O2 Delivery O2 Flow Rate FiO2 06/24/20 07:13 114 24 86 06/24/20 05:23 99.9 80/51 (61) 3.0 99.9 Temperature Source: Axillary Respirations Respiratory Effort: Accessory muscles, Shortness of breath Respiratory Pattern: Irregular Cardiovascular Pulse Rhythm: Irregular Heart: No rubs, clicks or gallop Lung Sounds Breath Sounds: Crackles, Rales Capillary Refil Capillary Refill: Rt Hand > 3 seconds Peripheral Pulse Pulse Location: Radial Pulse Strength: Weak (1+) Pulse Assessment Method: Monitor Integumentary Skin: Warm Skin Moisture: Dry Skin Turgor: Normal Skin Color: warm, edema Fingernail Color: WNL, Unable to Assess CHRISTIAN ALFARO DO Jun 24, 2020 09:33
--- NOTE | 2020-06-24 10:16 | PDOC2 ---
CLAUDIAJANETT Rosas [employer] 06/24/20 1016: CONSULT Date of Consult Date of Consult DATE: 06/24/20 TIME: 10:08 Reason for Consult Reason for Consult: sepsis, pneumoperitoneum Referring Physician Referring Physician: ER Identification/Chief Complaint Chief Complaint confusion Source Source: Caregiver, Chart review History of Present Illness Reason for Visit: Unable to obtain any history from patient No family present, from [place]--brought to ER with increased confusion, yelling-- On pressor support in ER DNR Ct concerning for possible perf ulcer Past Medical History Cardiovascular: CHF, HTN CENTRAL NERVOUS SYSTEM: Dementia, Seizure, Other GI: GERD Heme/Onc: Anemia NOS Psych: Anxiety, Depression Musculoskeletal: Osteoarthritis Renal/: Chronic renal insuff Past Surgical History Past Surgical History: Other (unknown) Family History Family History: Family History Unknown Social History ALCOHOL: none Drugs: None Lives: Long Term Current Problem List Problem List Problems Medical Problems: (1) AMS (altered mental status) Status: Acute (2) Perforated abdominal viscus Status: Acute (3) Septic shock Status: Acute (4) UTI (urinary tract infection) Status: Acute Current Medications Current Medications Current Medications Piperacillin Sod/ Tazobactam Sod 4.5 gm/Sodium Chloride 100 ml @ 200 mls/hr 1X ONCE IV Last administered on 06/24/20at 05:45; Start 06/24/20 at 06:00; Stop 06/24/20 at 06:29; Status DC Vancomycin HCl 2 gm/Sodium Chloride 500 ml @ 250 mls/hr 1X ONCE IV Last administered on 06/24/20at 06:37; Start 06/24/20 at 06:00; Stop 06/24/20 at 07:59; Status DC Sodium Chloride 1,000 ml @ 1,000 mls/hr 1X ONCE IV Last administered on 06/24/20at 05:45; Start 06/24/20 at 06:00; Stop 06/24/20 at 06:59; Status DC Vancomycin HCl (Vanco Per Pharmacy) 1 each PRN DAILY PRN MC SEE COMMENTS; Start 06/24/20 at 05:45 Sodium Chloride 1,000 ml @ 1,000 mls/hr 1X ONCE IV Last administered on 06/24/20at 07:00; Start 06/24/20 at 07:00; Stop 06/24/20 at 07:59; Status DC Norepinephrine Bitartrate 8 mg/ Dextrose 258 ml @ 21.866 mls/ hr 1X ONCE IV Last administered on 06/24/20at 09:07; Start 06/24/20 at 08:30; Stop 06/24/20 at 20:17 Ondansetron HCl (Zofran) 4 mg PRN Q8HRS PRN IV NAUSEA/VOMITING; Start 06/24/20 at 09:00; Stop 06/25/20 at 08:59 Sodium Chloride 1,000 ml @ 125 mls/hr Q8H IV Last administered on 06/24/20at 09:42; Start 06/24/20 at 09:00; Stop 06/25/20 at 08:59 Active Scripts Active Zofran Odt (Ondansetron) 4 Mg Tab.rapdis 4 Mg PO PRN Q4HRS PRN Keppra (Levetiracetam) 250 Mg Tablet 250 Mg PO BID Colace (Docusate Sodium) 100 Mg Capsule 100 Mg PO BID Catapres (Clonidine Hcl) 0.1 Mg Tablet 0.1 Mg PO DAILY Tegretol (Carbamazepine) 200 Mg Tablet 100 Mg PO TID Tylenol (Acetaminophen) 325 Mg Tablet 650 Mg PO PRN Q4HRS PRN Reported Furosemide 40 Mg Tablet 40 Mg PO DAILY Ferrous Sulfate 325 Mg Tablet 325 Mg PO DAILY Artificial Tears Eye Drops (Dextran 70/Hypromellose) 15 Ml Drops 1 Drop EACHEYE TID Lumigan (Bimatoprost) 2.5 Ml Drops 1 Drop EACHEYE QHS Multivitamins (Multivitamin) 1 Each Tablet 1 Each PO DAILY Miralax (Polyethylene Glycol 3350) 17 Gm Powd.pack 1 Pkt PO PRN DAILY PRN Baclofen 10 Mg Tablet 10 Mg PO QHS Potassium Chloride (Potassium Chloride) 10 Meq Capsule.er 10 Meq PO DAILY Allergies Allergies: Coded Allergies: grapefruit (Verified Allergy, Intermediate, Rash, 05/20/20) lemon (Verified Allergy, Intermediate, 05/20/20) mille lacs (Verified Allergy, Intermediate, Rash, 05/20/20) orange flavor (Verified Allergy, Intermediate, 11/25/17) orange juice (Verified Allergy, Intermediate, 05/20/20) ROS Review of System unable to obtain due to mental status Physical Exam General: Other (confusion/dementia--not answering any questions, does open eyes, moans ) HEENT: Atraumatic, Mucous membr. moist/pink Lungs: Other (diminished ) Heart: Other (tachy) Abdomen: Other (midly distended, moans on exam, obese abdomen ) Extremities: No cyanosis, Normal pulses Skin: No rashes, No breakdown MUSCULOSKELETAL: No deformity, No swelling Vitals VITALS Vital Signs Date Time Temp Pulse Resp B/P (MAP) Pulse Ox O2 Delivery O2 Flow Rate FiO2 06/24/20 08:05 114 24 90 06/24/20 05:23 99.9 80/51 (61) 3.0 99.9 Labs Labs Laboratory Tests Test 06/24/20 05:26 06/24/20 05:40 06/24/20 05:45 06/24/20 07:15 Glucose (Fingerstick) 140 mg/dL (70-99) Urine Collection Type Unknown Urine Color Yellow Urine Clarity Turbid Urine pH (<5.0-8.0) Urine Specific [place] (1.000-1.030) Urine Protein mg/dL (NEG-TRACE) Urine Glucose (UA) mg/dL (NEG) Urine Ketones (Stick) mg/dL (NEG) Urine Blood (NEG) Urine Nitrite (NEG) Urine Bilirubin (NEG) Urine Urobilinogen Dipstick mg/dL (0.2 mg/dL) Urine Leukocyte Esterase (NEG) Urine RBC 20-40 /HPF (0-2) Urine WBC Tntc /HPF (0-4) Urine Squamous Epithelial Cells Many /LPF Urine Bacteria Many /HPF (0-FEW) Urine Mucus Mod /LPF Urine Opiates Screen Pos (NEG) Urine Methadone Screen Neg (NEG) Urine Barbiturates Neg (NEG) Urine Phencyclidine Screen Neg (NEG) Urine Amphetamine/Methamphetamine Neg (NEG) Urine Benzodiazepines Screen Neg (NEG) Urine Cocaine Screen Neg (NEG) Urine Cannabinoids Screen Neg (NEG) Urine Ethyl Alcohol Neg (NEG) White Blood Count 11.5 x10^3/uL (4.0-11.0) Red Blood Count 3.54 x10^6/uL (3.50-5.40) Hemoglobin 11.1 g/dL (12.0-15.5) Hematocrit 33.6 % (36.0-47.0) Mean Corpuscular Volume 95 fL (79-100) Mean Corpuscular Hemoglobin 31 pg (25-35) Mean Corpuscular Hemoglobin Concent 33 g/dL (31-37) Red Cell Distribution Width 17.3 % (11.5-14.5) Platelet Count 428 x10^3/uL (140-400) Neutrophils (%) (Auto) 87 % (31-73) Lymphocytes (%) (Auto) 8 % (24-48) Monocytes (%) (Auto) 5 % (0-9) Eosinophils (%) (Auto) 0 % (0-3) Basophils (%) (Auto) 0 % (0-3) Neutrophils # (Auto) 10.0 x10^3/uL (1.8-7.7) Lymphocytes # (Auto) 0.9 x10^3/uL (1.0-4.8) Monocytes # (Auto) 0.5 x10^3/uL (0.0-1.1) Eosinophils # (Auto) 0.0 x10^3/uL (0.0-0.7) Basophils # (Auto) 0.0 x10^3/uL (0.0-0.2) Segmented Neutrophils % 90 % (35-66) Band Neutrophils % 1 % (0-9) Lymphocytes % 8 % (24-48) Monocytes % 1 % (0-10) Platelet Estimate Adequate (ADEQUATE) Large Platelets Occ Anisocytosis Slight Lactic Acid Level 3.4 mmol/L (0.4-2.0) Salicylates Level 3.1 mg/dL (2.8-20.0) Salicylate Last Dose Date Unknown Salicylate Last Dose Time Unknown Acetaminophen Level < 2 mcg/ml (10-30) Acetaminophen Last Dose Date Unknown Acetaminophen Last Dose Time Unknown Ethyl Alcohol Level < 10 mg/dL (0-10) Prothrombin Time 14.6 SEC (11.7-14.0) Prothromb Time International Ratio 1.2 (0.8-1.1) Activated Partial Thromboplast Time 22 SEC (24-38) Sodium Level 140 mmol/L (136-145) Potassium Level 4.9 mmol/L (3.5-5.1) Chloride Level 107 mmol/L (98-107) Carbon Dioxide Level 16 mmol/L (21-32) Anion Gap 17 (6-14) Blood Urea Nitrogen 66 mg/dL (7-20) Creatinine 2.2 mg/dL (0.6-1.0) Estimated GFR (Cockcroft-Gault) 21.1 BUN/Creatinine Ratio 30 (6-20) Glucose Level 120 mg/dL (70-99) Calcium Level 8.6 mg/dL (8.5-10.1) Magnesium Level 2.0 mg/dL (1.8-2.4) Total Bilirubin 0.6 mg/dL (0.2-1.0) Aspartate Amino Transf (AST/SGOT) 49 U/L (15-37) Alanine Aminotransferase (ALT/SGPT) 41 U/L (14-59) Alkaline Phosphatase 205 U/L (46-116) Creatine Kinase 116 U/L (26-192) Troponin I Quantitative 0.447 ng/mL (0.000-0.055) YI-Yny-B-Type Natriuretic Peptide 3147 pg/mL (0-449) Total Protein 6.3 g/dL (6.4-8.2) Albumin 2.4 g/dL (3.4-5.0) Albumin/Globulin Ratio 0.6 (1.0-1.7) Test 06/24/20 08:58 06/24/20 09:20 SARS-CoV-2 Antigen (Rapid) Negative (NEGATIVE) Lactic Acid Level 1.7 mmol/L (0.4-2.0) Laboratory Tests Test 06/24/20 05:26 06/24/20 05:40 06/24/20 05:45 06/24/20 07:15 Glucose (Fingerstick) 140 mg/dL (70-99) Urine Collection Type Unknown Urine Color Yellow Urine Clarity Turbid Urine pH (<5.0-8.0) Urine Specific [place] (1.000-1.030) Urine Protein mg/dL (NEG-TRACE) Urine Glucose (UA) mg/dL (NEG) Urine Ketones (Stick) mg/dL (NEG) Urine Blood (NEG) Urine Nitrite (NEG) Urine Bilirubin (NEG) Urine Urobilinogen Dipstick mg/dL (0.2 mg/dL) Urine Leukocyte Esterase (NEG) Urine RBC 20-40 /HPF (0-2) Urine WBC Tntc /HPF (0-4) Urine Squamous Epithelial Cells Many /LPF Urine Bacteria Many /HPF (0-FEW) Urine Mucus Mod /LPF Urine Opiates Screen Pos (NEG) Urine Methadone Screen Neg (NEG) Urine Barbiturates Neg (NEG) Urine Phencyclidine Screen Neg (NEG) Urine Amphetamine/Methamphetamine Neg (NEG) Urine Benzodiazepines Screen Neg (NEG) Urine Cocaine Screen Neg (NEG) Urine Cannabinoids Screen Neg (NEG) Urine Ethyl Alcohol Neg (NEG) White Blood Count 11.5 x10^3/uL (4.0-11.0) Red Blood Count 3.54 x10^6/uL (3.50-5.40) Hemoglobin 11.1 g/dL (12.0-15.5) Hematocrit 33.6 % (36.0-47.0) Mean Corpuscular Volume 95 fL (79-100) Mean Corpuscular Hemoglobin 31 pg (25-35) Mean Corpuscular Hemoglobin Concent 33 g/dL (31-37) Red Cell Distribution Width 17.3 % (11.5-14.5) Platelet Count 428 x10^3/uL (140-400) Neutrophils (%) (Auto) 87 % (31-73) Lymphocytes (%) (Auto) 8 % (24-48) Monocytes (%) (Auto) 5 % (0-9) Eosinophils (%) (Auto) 0 % (0-3) Basophils (%) (Auto) 0 % (0-3) Neutrophils # (Auto) 10.0 x10^3/uL (1.8-7.7) Lymphocytes # (Auto) 0.9 x10^3/uL (1.0-4.8) Monocytes # (Auto) 0.5 x10^3/uL (0.0-1.1) Eosinophils # (Auto) 0.0 x10^3/uL (0.0-0.7) Basophils # (Auto) 0.0 x10^3/uL (0.0-0.2) Segmented Neutrophils % 90 % (35-66) Band Neutrophils % 1 % (0-9) Lymphocytes % 8 % (24-48) Monocytes % 1 % (0-10) Platelet Estimate Adequate (ADEQUATE) Large Platelets Occ Anisocytosis Slight Lactic Acid Level 3.4 mmol/L (0.4-2.0) Salicylates Level 3.1 mg/dL (2.8-20.0) Salicylate Last Dose Date Unknown Salicylate Last Dose Time Unknown Acetaminophen Level < 2 mcg/ml (10-30) Acetaminophen Last Dose Date Unknown Acetaminophen Last Dose Time Unknown Ethyl Alcohol Level < 10 mg/dL (0-10) Prothrombin Time 14.6 SEC (11.7-14.0) Prothromb Time International Ratio 1.2 (0.8-1.1) Activated Partial Thromboplast Time 22 SEC (24-38) Sodium Level 140 mmol/L (136-145) Potassium Level 4.9 mmol/L (3.5-5.1) Chloride Level 107 mmol/L (98-107) Carbon Dioxide Level 16 mmol/L (21-32) Anion Gap 17 (6-14) Blood Urea Nitrogen 66 mg/dL (7-20) Creatinine 2.2 mg/dL (0.6-1.0) Estimated GFR (Cockcroft-Gault) 21.1 BUN/Creatinine Ratio 30 (6-20) Glucose Level 120 mg/dL (70-99) Calcium Level 8.6 mg/dL (8.5-10.1) Magnesium Level 2.0 mg/dL (1.8-2.4) Total Bilirubin 0.6 mg/dL (0.2-1.0) Aspartate Amino Transf (AST/SGOT) 49 U/L (15-37) Alanine Aminotransferase (ALT/SGPT) 41 U/L (14-59) Alkaline Phosphatase 205 U/L (46-116) Creatine Kinase 116 U/L (26-192) Troponin I Quantitative 0.447 ng/mL (0.000-0.055) PN-Nbh-B-Type Natriuretic Peptide 3147 pg/mL (0-449) Total Protein 6.3 g/dL (6.4-8.2) Albumin 2.4 g/dL (3.4-5.0) Albumin/Globulin Ratio 0.6 (1.0-1.7) Test 06/24/20 08:58 06/24/20 09:20 SARS-CoV-2 Antigen (Rapid) Negative (NEGATIVE) Lactic Acid Level 1.7 mmol/L (0.4-2.0) Assessment/Plan Assessment/Plan sepsis, hypotension requiring pressor support possible perf ulcer on CT UTI 89 yo female, DNR--poor surgical candidate-- will add PPI will ask ID to assist with abx will have ZOË Whalen MD 06/24/20 1244: CONSULT Assessment/Plan Assessment/Plan Patient seen and examined by me in the intensive care unit does not really respond to verbal stimuli currently on levofed for pressor support. Abdomen is firm slightly distended tender to palpation. CT scan showing free air likely perforation of the stomach or duodenum from ulcers. Patient with urosepsis as well as severe dementia. Patient was from detention with DNR. Spoke with the patient's daughter explained that surgery would likely be unhelpful since she is such a poor surgical candidate would likely not be extubated will and be on a ventilator long-term if she even survive the surgery. Daughter seemed understand did not wish to proceed with surgical intervention leaning more towards comfort care JANETT TAYLOR APRN Jun 24, 2020 10:16 ZOË KHALIL MD Jun 24, 2020 12:44
--- NOTE | 2020-06-24 10:27 | HP ---
ADMIT DATE: 06/24/2020 CHIEF COMPLAINT: Mental status change. HISTORY OF PRESENT ILLNESS: The patient is a pleasant 89-year-old female, well known to my service. She lives at [facility] today, she developed mental status change. She actually had COVID-19 within the recent past. She also had a recent right shoulder dislocation. Basically when she got to the ER today we noted that she was quite septic, her pressures in the 50s. We did some imaging. She has free air under the diaphragm with pneumoperitoneum and bowel perforation. I discussed the case with ER physician. We are going to admit the patient and consult General Surgery, give her IV antibiotics. She is currently being examined in the ER room 22 where she is on Levophed drip. PAST MEDICAL HISTORY: Anemia, anxiety, arthritis, CHF, constipation, COPD, hemiplegia, spastic paralysis, hypertension, GERD, dysphagia, osteoarthritis, seizures, depression. ALLERGIES: GRAPEFRUIT, LEONA, LIMES, ORANGE AND ORANGE JUICE. FAMILY HISTORY: Diabetes. SOCIAL HISTORY: She lives in a correction. She does not drink, smoke or take drugs. MEDICATIONS: Reviewed. Please refer to the MRAD. REVIEW OF SYSTEMS: Unable to obtain. The patient is obtunded. PHYSICAL EXAMINATION: VITALS: Within normal limits and are stable. GENERAL: She is obtunded. HEENT: Normal cephalic atraumatic, external auditory canals are patent. EYES: Extraocular muscles are intact, pupils are equally round and reactive to light and accommodation. MUSCULOSKELETAL: Well developed, well nourished, good range of motion. ENDOCRINE: No thyromegaly was palpated. LYMPHATICS: No cervical chain or axillary nodes were noted. HEMATOPOIETIC: No bruising. NECK: Supple, no JVD, no thyromegaly was noted. LUNGS: Clear to auscultation in all lung dickey without rhonchi or wheezing. HEART: RRR, S1, S2 present. Peripheral pulses intact, no obvious murmurs were noted. ABDOMEN: Her abdomen is distended. It seems to be painful to touch. Decreased bowel sounds. EXTREMITIES: Without any cyanosis, clubbing, or edema. Pedal pulses intact, Homans sign is negative. NEUROLOGIC: She is obtunded. PSYCHIATRIC: She is obtunded. SKIN: No ulcerations or rashes, good skin turgor, no jaundice. VASCULAR: Good capillary refill, neurovascular bundle appears to be intact. IMAGING: CT of the abdomen shows perforated bowel with pneumoperitoneum. LABORATORY DATA: White count 11, hemoglobin 11, platelets 428. Electrolytes: Sodium 140, potassium 4.9, chloride 107, bicarbonate 16, BUN 66, creatinine 2.2, glucose 120. Drug screen positive for opiates. Urinalysis too numerous to count white cells. INR is 1.2. COVID testing is negative (it should be noted that she did have COVID-19 recently though). ASSESSMENT AND PLAN: Bowel perforation with sepsis, urinary tract infection, critical hypotension. The patient is being admitted to the ICU. IV antibiotics, IV Levophed. Consult General Surgery. Consult ID. Consult Nephrology. She is do not resuscitate. O2 per nasal cannula. P.r.n. Zofran. We would like to give her some p.r.n. narcotics, but her pressure is low right now. IV Zosyn, IV vancomycin. Prognosis is extremely guarded at best. BRITNI MARTINEZ DO DR: JEFF/ramakrishna JOB#: [id number] / [id number]
[2020-06-24] MEDS ORDERED: PANTOPRAZOLE SODIUM IV DRIP 80 MG in IV NORMAL SALINE 100ML 100 ML IV SCH (10:45)
[2020-06-24 11:00] VITALS: BP 87/57
--- NOTE | 2020-06-24 11:32 | PDOC ---
Infectious Disease Note Vital Signs: Vital Signs Vital Signs Date Time Temp Pulse Resp B/P (MAP) Pulse Ox O2 Delivery O2 Flow Rate FiO2 06/24/20 11:00 97.5 106 22 87/57 (67) 97 Nasal Cannula 2.0 97.5 Medications: Inpatient Meds: Current Medications Medications (Trade) Dose Ordered Sig/Cherise Start Time Stop Time Status Last Admin Dose Admin Norepinephrine Bitartrate 8 mg/ Dextrose 258 ml @ 21.866 mls/ hr 1X ONCE 06/24/20 08:30 06/24/20 20:17 06/24/20 09:07 21.866 MLS/HR Ondansetron HCl (Zofran) 4 mg PRN Q8HRS PRN 06/24/20 09:00 06/25/20 08:59 Pantoprazole Sodium 80 mg/ Sodium Chloride 100 ml @ 10 mls/hr Q10H 06/24/20 10:45 06/24/20 10:57 10 MLS/HR Piperacillin Sod/ Tazobactam Sod 4.5 gm/Sodium Chloride 100 ml @ 200 mls/hr 1X ONCE 06/24/20 06:00 06/24/20 06:29 DC 06/24/20 05:45 200 MLS/HR Sodium Chloride 1,000 ml @ 125 mls/hr Q8H 06/24/20 09:00 06/25/20 08:59 06/24/20 09:42 125 MLS/HR Vancomycin HCl (Vanco Per Pharmacy) 1 each PRN DAILY PRN 06/24/20 05:45 Vancomycin HCl 2 gm/Sodium Chloride 500 ml @ 250 mls/hr 1X ONCE 06/24/20 06:00 06/24/20 07:59 DC 06/24/20 06:37 250 MLS/HR Labs: Lab Laboratory Tests Test 06/24/20 05:26 06/24/20 05:40 06/24/20 05:45 06/24/20 07:15 Glucose (Fingerstick) 140 mg/dL (70-99) Urine Collection Type Unknown Urine Color Yellow Urine Clarity Turbid Urine pH (<5.0-8.0) Urine Specific [place] (1.000-1.030) Urine Protein mg/dL (NEG-TRACE) Urine Glucose (UA) mg/dL (NEG) Urine Ketones (Stick) mg/dL (NEG) Urine Blood (NEG) Urine Nitrite (NEG) Urine Bilirubin (NEG) Urine Urobilinogen Dipstick mg/dL (0.2 mg/dL) Urine Leukocyte Esterase (NEG) Urine RBC 20-40 /HPF (0-2) Urine WBC Tntc /HPF (0-4) Urine Squamous Epithelial Cells Many /LPF Urine Bacteria Many /HPF (0-FEW) Urine Mucus Mod /LPF Urine Opiates Screen Pos (NEG) Urine Methadone Screen Neg (NEG) Urine Barbiturates Neg (NEG) Urine Phencyclidine Screen Neg (NEG) Urine Amphetamine/Methamphetamine Neg (NEG) Urine Benzodiazepines Screen Neg (NEG) Urine Cocaine Screen Neg (NEG) Urine Cannabinoids Screen Neg (NEG) Urine Ethyl Alcohol Neg (NEG) White Blood Count 11.5 x10^3/uL (4.0-11.0) Red Blood Count 3.54 x10^6/uL (3.50-5.40) Hemoglobin 11.1 g/dL (12.0-15.5) Hematocrit 33.6 % (36.0-47.0) Mean Corpuscular Volume 95 fL (79-100) Mean Corpuscular Hemoglobin 31 pg (25-35) Mean Corpuscular Hemoglobin Concent 33 g/dL (31-37) Red Cell Distribution Width 17.3 % (11.5-14.5) Platelet Count 428 x10^3/uL (140-400) Neutrophils (%) (Auto) 87 % (31-73) Lymphocytes (%) (Auto) 8 % (24-48) Monocytes (%) (Auto) 5 % (0-9) Eosinophils (%) (Auto) 0 % (0-3) Basophils (%) (Auto) 0 % (0-3) Neutrophils # (Auto) 10.0 x10^3/uL (1.8-7.7) Lymphocytes # (Auto) 0.9 x10^3/uL (1.0-4.8) Monocytes # (Auto) 0.5 x10^3/uL (0.0-1.1) Eosinophils # (Auto) 0.0 x10^3/uL (0.0-0.7) Basophils # (Auto) 0.0 x10^3/uL (0.0-0.2) Segmented Neutrophils % 90 % (35-66) Band Neutrophils % 1 % (0-9) Lymphocytes % 8 % (24-48) Monocytes % 1 % (0-10) Platelet Estimate Adequate (ADEQUATE) Large Platelets Occ Anisocytosis Slight Lactic Acid Level 3.4 mmol/L (0.4-2.0) Salicylates Level 3.1 mg/dL (2.8-20.0) Salicylate Last Dose Date Unknown Salicylate Last Dose Time Unknown Acetaminophen Level < 2 mcg/ml (10-30) Acetaminophen Last Dose Date Unknown Acetaminophen Last Dose Time Unknown Ethyl Alcohol Level < 10 mg/dL (0-10) Prothrombin Time 14.6 SEC (11.7-14.0) Prothromb Time International Ratio 1.2 (0.8-1.1) Activated Partial Thromboplast Time 22 SEC (24-38) Sodium Level 140 mmol/L (136-145) Potassium Level 4.9 mmol/L (3.5-5.1) Chloride Level 107 mmol/L (98-107) Carbon Dioxide Level 16 mmol/L (21-32) Anion Gap 17 (6-14) Blood Urea Nitrogen 66 mg/dL (7-20) Creatinine 2.2 mg/dL (0.6-1.0) Estimated GFR (Cockcroft-Gault) 21.1 BUN/Creatinine Ratio 30 (6-20) Glucose Level 120 mg/dL (70-99) Calcium Level 8.6 mg/dL (8.5-10.1) Magnesium Level 2.0 mg/dL (1.8-2.4) Total Bilirubin 0.6 mg/dL (0.2-1.0) Aspartate Amino Transf (AST/SGOT) 49 U/L (15-37) Alanine Aminotransferase (ALT/SGPT) 41 U/L (14-59) Alkaline Phosphatase 205 U/L (46-116) Creatine Kinase 116 U/L (26-192) Troponin I Quantitative 0.447 ng/mL (0.000-0.055) DP-Nja-H-Type Natriuretic Peptide 3147 pg/mL (0-449) Total Protein 6.3 g/dL (6.4-8.2) Albumin 2.4 g/dL (3.4-5.0) Albumin/Globulin Ratio 0.6 (1.0-1.7) Test 06/24/20 08:58 06/24/20 09:20 SARS-CoV-2 Antigen (Rapid) Negative (NEGATIVE) Lactic Acid Level 1.7 mmol/L (0.4-2.0) Objective: Assessment: Pt seen and examined IMP: Severe Sepsis source intraabdominal Possible perforated ulcer on CT, Leucocytosis Lactic acidosis UTI CRYSTAL with underlying Chronic Renal failure Encephalopathy Chronic right shoulder anterior dislocation Dementia H/O CHF Spastic paralysis h/o Anxiety, Depression [facility] resident Plan: Plan of Care Restart Zosyn Micafungin and zyvox Gen surgery evaluating pt [id number] LAYLA PALMER MD Jun 24, 2020 11:32
[2020-06-24 12:00] VITALS: BP 104/56
[2020-06-24] MEDS ORDERED: PIPERACILLIN/TAZOBACTAM 2.25 GM in IV NORMAL SALINE 50ML 50 ML IV SCH (12:00)
--- NOTE | 2020-06-24 12:42 | PDOC2 ---
CONSULT Date of Consult Date of Consult DATE: 06/24/20 TIME: 12:42 Reason for Consult Reason for Consult: CRI, sepsis Identification/Chief Complaint Chief Complaint Unable to obtain from patient Source Source: Chart review History of Present Illness Reason for Visit: Hx obtained from chart review and Nursing 11/25 AMS 89 yo CF History of Covid 19 (03/2020), COPD, Hypertension, Anemia, CHF, GERD, Anxiety, Depression, Seizures, and cognitive communication deficit, presents to the ED from [facility] with concern for altered mental status and yelling. Per NC report NH reports pt hasn't been the same since since admitted on 04/23/2020 for right shoulder dislocation. Pt is usually alert to person and can answer simple questions. Pt was yelling out at 4pm that she had chest pain and oxygen saturation was saturating 88% to 92% on 2 L nasal cannula. NC RN believes at 11pm pt was at her baseline. In the ER she was found to be hypotensive, elevated WBC, Lactic acid, Low Bicarb She underwent CT of the abdomen, which showed pneumoperitoneum, evidence of bowel perforation. She was started on Levophed ,Renal Consulted for CRI/sepsis. GS and ID consulted She had a recent right shoulder dislocation. Past Medical History Cardiovascular: CHF, HTN CENTRAL NERVOUS SYSTEM: Dementia, Seizure, Other GI: GERD Heme/Onc: Anemia NOS Psych: Anxiety, Depression Musculoskeletal: Osteoarthritis Renal/: Chronic renal insuff Past Surgical History Past Surgical History: Other (unknown) Family History Family History: Family History Unknown Social History ALCOHOL: none Drugs: None Lives: [facility] Current Problem List Problem List Problems Medical Problems: (1) AMS (altered mental status) Status: Acute (2) Perforated abdominal viscus Status: Acute (3) Septic shock Status: Acute (4) UTI (urinary tract infection) Status: Acute Current Medications Current Medications Current Medications Piperacillin Sod/ Tazobactam Sod 4.5 gm/Sodium Chloride 100 ml @ 200 mls/hr 1X ONCE IV Last administered on 06/24/20at 05:45; Start 06/24/20 at 06:00; Stop 06/24/20 at 06:29; Status DC Vancomycin HCl 2 gm/Sodium Chloride 500 ml @ 250 mls/hr 1X ONCE IV Last administered on 06/24/20at 06:37; Start 06/24/20 at 06:00; Stop 06/24/20 at 07:59; Status DC Sodium Chloride 1,000 ml @ 1,000 mls/hr 1X ONCE IV Last administered on 06/24/20at 05:45; Start 06/24/20 at 06:00; Stop 06/24/20 at 06:59; Status DC Vancomycin HCl (Vanco Per Pharmacy) 1 each PRN DAILY PRN MC SEE COMMENTS; Start 06/24/20 at 05:45; Stop 06/24/20 at 11:27; Status DC Sodium Chloride 1,000 ml @ 1,000 mls/hr 1X ONCE IV Last administered on 06/24/20at 07:00; Start 06/24/20 at 07:00; Stop 06/24/20 at 07:59; Status DC Norepinephrine Bitartrate 8 mg/ Dextrose 258 ml @ 21.866 mls/ hr 1X ONCE IV Last administered on 06/24/20at 09:07; Start 06/24/20 at 08:30; Stop 06/24/20 at 20:17 Ondansetron HCl (Zofran) 4 mg PRN Q8HRS PRN IV NAUSEA/VOMITING; Start 06/24/20 at 09:00; Stop 06/25/20 at 08:59 Sodium Chloride 1,000 ml @ 125 mls/hr Q8H IV Last administered on 06/24/20at 09:42; Start 06/24/20 at 09:00; Stop 06/25/20 at 08:59 Pantoprazole Sodium 80 mg/ Sodium Chloride 100 ml @ 10 mls/hr Q10H IV Last administered on 06/24/20at 10:57; Start 06/24/20 at 10:45 Piperacillin Sod/ Tazobactam Sod 2.25 gm/Sodium Chloride 50 ml @ 100 mls/hr Q6HRS IV ; Start 06/24/20 at 12:00 Micafungin Sodium 100 mg/Dextrose 100 ml @ 100 mls/hr Q24H IV ; Start 06/24/20 at 13:00 Linezolid/Dextrose 300 ml @ 300 mls/hr Q12HR IV ; Start 06/24/20 at 21:00 Active Scripts Active Zofran Odt (Ondansetron) 4 Mg Tab.rapdis 4 Mg PO PRN Q4HRS PRN Keppra (Levetiracetam) 250 Mg Tablet 250 Mg PO BID Colace (Docusate Sodium) 100 Mg Capsule 100 Mg PO BID Catapres (Clonidine Hcl) 0.1 Mg Tablet 0.1 Mg PO DAILY Tegretol (Carbamazepine) 200 Mg Tablet 100 Mg PO TID Tylenol (Acetaminophen) 325 Mg Tablet 650 Mg PO PRN Q4HRS PRN Reported Furosemide 40 Mg Tablet 40 Mg PO DAILY Ferrous Sulfate 325 Mg Tablet 325 Mg PO DAILY Artificial Tears Eye Drops (Dextran 70/Hypromellose) 15 Ml Drops 1 Drop EACHEYE TID Lumigan (Bimatoprost) 2.5 Ml Drops 1 Drop EACHEYE QHS Multivitamins (Multivitamin) 1 Each Tablet 1 Each PO DAILY Miralax (Polyethylene Glycol 3350) 17 Gm Powd.pack 1 Pkt PO PRN DAILY PRN Baclofen 10 Mg Tablet 10 Mg PO QHS Potassium Chloride (Potassium Chloride) 10 Meq Capsule.er 10 Meq PO DAILY Allergies Allergies: Coded Allergies: grapefruit (Verified Allergy, Intermediate, Rash, 05/20/20) lemon (Verified Allergy, Intermediate, 05/20/20) mary's igloo (Verified Allergy, Intermediate, Rash, 05/20/20) orange flavor (Verified Allergy, Intermediate, 11/25/17) orange juice (Verified Allergy, Intermediate, 05/20/20) ROS Review of System Unable to Obtain 2 to AMS Physical Exam Physical Exam GENERAL: Lethargic does not respond to any questions. HEENT: Normocephalic, atraumatic. Oral mucosa dry. On O2 by NC NECK: Supple. LUNGS: Decreased breath sounds at the bases, Non labored HEART: S1, S2. ABDOMEN: Distended, tender. Decreased bowel sounds. EXTREMITIES: no cyanosis, clubbing. NEUROLOGIC: Obtunded. PSYCHIATRIC: Unable to evaluate. DERMATOLOGIC: No generalized rash. Hidalgo in place Vital Signs Vital Signs Date Time Temp Pulse Resp B/P (MAP) Pulse Ox O2 Delivery O2 Flow Rate FiO2 06/24/20 12:00 Nasal Cannula 2.0 06/24/20 11:00 97.5 106 22 87/57 (67) 97 97.5 Assessment & Plan CRYSTAL - ATN 2/2 Sepsis/Perforated viscus Hx of intermittent CRYSTAL in the past , UA cw UTI Started on pressors, IVF CKD stage 3 Cr baseline 1.1-1.[address] scan shows Bilat Renal atrophy Possible perforated viscus on CT- pneumoperitoneum evidence of bowel perforation, also mild Source is not certain although the distal stomach and gastroduodenal junction banegas are somewhat thickened, sequela of perforated ulcer possible. GS consulted ,she is Not a surgical candidate Sepsis- source is likely intra-abdominal. Started on Abx Leukocytosis and lactic acidosis. Metabolic acidosis 2/2 above UTI Encephalopathy, likely from above. Chronic right shoulder anterior dislocation. Dementia. History of congestive heart failure. Spastic paralysis. shelter resident. Poor Prognosis,, decision to make her comfort care by daughter Labs Labs Laboratory Tests Test 06/24/20 05:26 06/24/20 05:40 06/24/20 05:45 06/24/20 07:15 Glucose (Fingerstick) 140 mg/dL (70-99) Urine Collection Type Unknown Urine Color Yellow Urine Clarity Turbid Urine pH (<5.0-8.0) Urine Specific [place] (1.000-1.030) Urine Protein mg/dL (NEG-TRACE) Urine Glucose (UA) mg/dL (NEG) Urine Ketones (Stick) mg/dL (NEG) Urine Blood (NEG) Urine Nitrite (NEG) Urine Bilirubin (NEG) Urine Urobilinogen Dipstick mg/dL (0.2 mg/dL) Urine Leukocyte Esterase (NEG) Urine RBC 20-40 /HPF (0-2) Urine WBC Tntc /HPF (0-4) Urine Squamous Epithelial Cells Many /LPF Urine Bacteria Many /HPF (0-FEW) Urine Mucus Mod /LPF Urine Opiates Screen Pos (NEG) Urine Methadone Screen Neg (NEG) Urine Barbiturates Neg (NEG) Urine Phencyclidine Screen Neg (NEG) Urine Amphetamine/Methamphetamine Neg (NEG) Urine Benzodiazepines Screen Neg (NEG) Urine Cocaine Screen Neg (NEG) Urine Cannabinoids Screen Neg (NEG) Urine Ethyl Alcohol Neg (NEG) White Blood Count 11.5 x10^3/uL (4.0-11.0) Red Blood Count 3.54 x10^6/uL (3.50-5.40) Hemoglobin 11.1 g/dL (12.0-15.5) Hematocrit 33.6 % (36.0-47.0) Mean Corpuscular Volume 95 fL (79-100) Mean Corpuscular Hemoglobin 31 pg (25-35) Mean Corpuscular Hemoglobin Concent 33 g/dL (31-37) Red Cell Distribution Width 17.3 % (11.5-14.5) Platelet Count 428 x10^3/uL (140-400) Neutrophils (%) (Auto) 87 % (31-73) Lymphocytes (%) (Auto) 8 % (24-48) Monocytes (%) (Auto) 5 % (0-9) Eosinophils (%) (Auto) 0 % (0-3) Basophils (%) (Auto) 0 % (0-3) Neutrophils # (Auto) 10.0 x10^3/uL (1.8-7.7) Lymphocytes # (Auto) 0.9 x10^3/uL (1.0-4.8) Monocytes # (Auto) 0.5 x10^3/uL (0.0-1.1) Eosinophils # (Auto) 0.0 x10^3/uL (0.0-0.7) Basophils # (Auto) 0.0 x10^3/uL (0.0-0.2) Segmented Neutrophils % 90 % (35-66) Band Neutrophils % 1 % (0-9) Lymphocytes % 8 % (24-48) Monocytes % 1 % (0-10) Platelet Estimate Adequate (ADEQUATE) Large Platelets Occ Anisocytosis Slight Lactic Acid Level 3.4 mmol/L (0.4-2.0) Salicylates Level 3.1 mg/dL (2.8-20.0) Salicylate Last Dose Date Unknown Salicylate Last Dose Time Unknown Acetaminophen Level < 2 mcg/ml (10-30) Acetaminophen Last Dose Date Unknown Acetaminophen Last Dose Time Unknown Ethyl Alcohol Level < 10 mg/dL (0-10) Prothrombin Time 14.6 SEC (11.7-14.0) Prothromb Time International Ratio 1.2 (0.8-1.1) Activated Partial Thromboplast Time 22 SEC (24-38) Sodium Level 140 mmol/L (136-145) Potassium Level 4.9 mmol/L (3.5-5.1) Chloride Level 107 mmol/L (98-107) Carbon Dioxide Level 16 mmol/L (21-32) Anion Gap 17 (6-14) Blood Urea Nitrogen 66 mg/dL (7-20) Creatinine 2.2 mg/dL (0.6-1.0) Estimated GFR (Cockcroft-Gault) 21.1 BUN/Creatinine Ratio 30 (6-20) Glucose Level 120 mg/dL (70-99) Calcium Level 8.6 mg/dL (8.5-10.1) Magnesium Level 2.0 mg/dL (1.8-2.4) Total Bilirubin 0.6 mg/dL (0.2-1.0) Aspartate Amino Transf (AST/SGOT) 49 U/L (15-37) Alanine Aminotransferase (ALT/SGPT) 41 U/L (14-59) Alkaline Phosphatase 205 U/L (46-116) Creatine Kinase 116 U/L (26-192) Troponin I Quantitative 0.447 ng/mL (0.000-0.055) NH-Nvz-J-Type Natriuretic Peptide 3147 pg/mL (0-449) Total Protein 6.3 g/dL (6.4-8.2) Albumin 2.4 g/dL (3.4-5.0) Albumin/Globulin Ratio 0.6 (1.0-1.7) Test 06/24/20 08:58 06/24/20 09:20 SARS-CoV-2 Antigen (Rapid) Negative (NEGATIVE) Lactic Acid Level 1.7 mmol/L (0.4-2.0) Laboratory Tests Test 06/24/20 05:26 06/24/20 05:40 06/24/20 05:45 06/24/20 07:15 Glucose (Fingerstick) 140 mg/dL (70-99) Urine Collection Type Unknown Urine Color Yellow Urine Clarity Turbid Urine pH (<5.0-8.0) Urine Specific [place] (1.000-1.030) Urine Protein mg/dL (NEG-TRACE) Urine Glucose (UA) mg/dL (NEG) Urine Ketones (Stick) mg/dL (NEG) Urine Blood (NEG) Urine Nitrite (NEG) Urine Bilirubin (NEG) Urine Urobilinogen Dipstick mg/dL (0.2 mg/dL) Urine Leukocyte Esterase (NEG) Urine RBC 20-40 /HPF (0-2) Urine WBC Tntc /HPF (0-4) Urine Squamous Epithelial Cells Many /LPF Urine Bacteria Many /HPF (0-FEW) Urine Mucus Mod /LPF Urine Opiates Screen Pos (NEG) Urine Methadone Screen Neg (NEG) Urine Barbiturates Neg (NEG) Urine Phencyclidine Screen Neg (NEG) Urine Amphetamine/Methamphetamine Neg (NEG) Urine Benzodiazepines Screen Neg (NEG) Urine Cocaine Screen Neg (NEG) Urine Cannabinoids Screen Neg (NEG) Urine Ethyl Alcohol Neg (NEG) White Blood Count 11.5 x10^3/uL (4.0-11.0) Red Blood Count 3.54 x10^6/uL (3.50-5.40) Hemoglobin 11.1 g/dL (12.0-15.5) Hematocrit 33.6 % (36.0-47.0) Mean Corpuscular Volume 95 fL (79-100) Mean Corpuscular Hemoglobin 31 pg (25-35) Mean Corpuscular Hemoglobin Concent 33 g/dL (31-37) Red Cell Distribution Width 17.3 % (11.5-14.5) Platelet Count 428 x10^3/uL (140-400) Neutrophils (%) (Auto) 87 % (31-73) Lymphocytes (%) (Auto) 8 % (24-48) Monocytes (%) (Auto) 5 % (0-9) Eosinophils (%) (Auto) 0 % (0-3) Basophils (%) (Auto) 0 % (0-3) Neutrophils # (Auto) 10.0 x10^3/uL (1.8-7.7) Lymphocytes # (Auto) 0.9 x10^3/uL (1.0-4.8) Monocytes # (Auto) 0.5 x10^3/uL (0.0-1.1) Eosinophils # (Auto) 0.0 x10^3/uL (0.0-0.7) Basophils # (Auto) 0.0 x10^3/uL (0.0-0.2) Segmented Neutrophils % 90 % (35-66) Band Neutrophils % 1 % (0-9) Lymphocytes % 8 % (24-48) Monocytes % 1 % (0-10) Platelet Estimate Adequate (ADEQUATE) Large Platelets Occ Anisocytosis Slight Lactic Acid Level 3.4 mmol/L (0.4-2.0) Salicylates Level 3.1 mg/dL (2.8-20.0) Salicylate Last Dose Date Unknown Salicylate Last Dose Time Unknown Acetaminophen Level < 2 mcg/ml (10-30) Acetaminophen Last Dose Date Unknown Acetaminophen Last Dose Time Unknown Ethyl Alcohol Level < 10 mg/dL (0-10) Prothrombin Time 14.6 SEC (11.7-14.0) Prothromb Time International Ratio 1.2 (0.8-1.1) Activated Partial Thromboplast Time 22 SEC (24-38) Sodium Level 140 mmol/L (136-145) Potassium Level 4.9 mmol/L (3.5-5.1) Chloride Level 107 mmol/L (98-107) Carbon Dioxide Level 16 mmol/L (21-32) Anion Gap 17 (6-14) Blood Urea Nitrogen 66 mg/dL (7-20) Creatinine 2.2 mg/dL (0.6-1.0) Estimated GFR (Cockcroft-Gault) 21.1 BUN/Creatinine Ratio 30 (6-20) Glucose Level 120 mg/dL (70-99) Calcium Level 8.6 mg/dL (8.5-10.1) Magnesium Level 2.0 mg/dL (1.8-2.4) Total Bilirubin 0.6 mg/dL (0.2-1.0) Aspartate Amino Transf (AST/SGOT) 49 U/L (15-37) Alanine Aminotransferase (ALT/SGPT) 41 U/L (14-59) Alkaline Phosphatase 205 U/L (46-116) Creatine Kinase 116 U/L (26-192) Troponin I Quantitative 0.447 ng/mL (0.000-0.055) XM-Wni-U-Type Natriuretic Peptide 3147 pg/mL (0-449) Total Protein 6.3 g/dL (6.4-8.2) Albumin 2.4 g/dL (3.4-5.0) Albumin/Globulin Ratio 0.6 (1.0-1.7) Test 06/24/20 08:58 06/24/20 09:20 SARS-CoV-2 Antigen (Rapid) Negative (NEGATIVE) Lactic Acid Level 1.7 mmol/L (0.4-2.0) Review All relevant outside records, renal labs, imaging studies, telemetry/EKG's were reviewed. Images Images CT scan abdomen 1. There is pneumoperitoneum evidence of bowel perforation, also mild complex appearing perihepatic fluid. Source is not certain although the distal stomach and gastroduodenal junction banegas are somewhat thickened, sequela of perforated ulcer possible. 2. Gallbladder is distended and there is cholelithiasis. 3. There is bilateral renal atrophy. 4. There is coronary calcification. 5. There is some atelectasis of the bilateral lung bases although mild infiltrates of the lower lobes difficult to exclude. 6. There is compression deformity of L2 and L3 vertebral bodies of uncertain chronicity. There is bone demineralization. FADI ZENDEJAS MD Jun 24, 2020 12:42
[2020-06-24 13:00] VITALS: BP 100/56
[2020-06-24] MEDS ORDERED: MICAFUNGIN 100 MG in IV DEXTROSE 5% 100ML 100 ML IV SCH (13:00)
[2020-06-24] MEDS ORDERED: MORPHINE SULFATE 30 ML IV PRN (13:00)
[2020-06-24] MEDS ORDERED: SCOPOLAMINE 1.5MG PATCH. TD SCH (14:00)
--- NOTE | 2020-06-24 14:03 | CONS ---
DATE OF CONSULTATION: 06/24/2020 REFERRING PHYSICIAN: Dr. Benítez. REASON FOR CONSULTATION: Sepsis. HISTORY OF PRESENT ILLNESS: An 89-year-old female from [facility], was brought in for altered mental status. The patient had a recent right shoulder dislocation. When she arrived to the ER, she was found to be hypotensive. White count was elevated at 11.5 with a creatinine elevated at 2.2, lactate of 3.4. BNP of 3147. Troponin of 0.447, bicarbonate of 16. She underwent CT of the abdomen, which showed pneumoperitoneum, evidence of bowel perforation. Mild complex appearing perihepatic fluid. Source is not certain. Although, the distal stomach and gastroduodenal junction banegas are somewhat thickened, sequelae of perforated ulcer, possible gallbladder is distended and there is cholelithiasis. There is bilateral renal atrophy, coronary calcification, atelectasis in bilateral lung base, although mild infiltrates of the lower lobe cannot be excluded, compression deformity of L2 and L3 vertebral bodies of uncertain chronicity. The patient underwent chest x-ray, which showed new subclavian line low volume, stable bibasilar opacities, stable pneumoperitoneum. Repeat demonstration of dislocation of the right shoulder. There is superior migration of the left humerus, which can be seen with chronic rotator cuff injury. Head CT showed no acute intracranial hemorrhage, chronic changes. The patient received a dose of vancomycin and Zosyn. Currently, she is on vancomycin. ID consult has been requested for antibiotic management. Currently, she is on Levophed drip. The patient is obtunded, does not respond to any questions. Does moan due to pain. PAST MEDICAL HISTORY: Anemia, anxiety, arthritis, CHF, constipation, COPD, hemiplegia, spastic paralysis, hypertension, GERD, dysphagia, osteoarthritis, seizures, depression, right shoulder dislocation, generalized immobility, [facility] resident. ALLERGIES: GRAPEFRUIT, LEONA, LIMES, ORANGE AND ORANGE JUICE. FAMILY HISTORY: As per HPI. SOCIAL HISTORY: No smoking or alcohol. prison resident. CURRENT MEDICATION: Reviewed. Please refer to [facility]. REVIEW OF SYSTEMS: Unable to obtain. PHYSICAL EXAMINATION: VITAL SIGNS: Temperature 97.5, pulse 106, respiratory rate 22, blood pressure 87/57 on Levophed, oxygen saturation 97% on 2 liters by nasal cannula. GENERAL: Lethargic female, moaning, does not respond to any questions. HEENT: Normocephalic, atraumatic. Oral mucosa dry. NECK: Supple. Right IJ in place, clean. LUNGS: Decreased breath sounds at the bases, otherwise clear. HEART: S1, S2. No murmurs appreciated. ABDOMEN: Distended, tender. Decreased bowel sounds. Wounds with superficial palpation. EXTREMITIES: Deformity, no cyanosis, clubbing. NEUROLOGIC: Obtunded. PSYCHIATRIC: Unable to evaluate. DERMATOLOGIC: Warm, dry. No generalized rash. Multiple dry skin over the lower extremities. LABORATORY DATA: WBC 11.5, hemoglobin 11.1, hematocrit 33.6, platelets 428, segments 90. Sodium 140, potassium 4.9, chloride 107, bicarbonate 16, BUN 66, creatinine 2.2 and glucose 120. Lactate 3.4, repeat is 1.7. alkaline phosphatase 205, AST 49. Troponin 0.447. BNP 3147, albumin 2.4. UA; wbc's too numerous to count, rbc's 20-40. Serology for COVID-19 negative. UDS noted. IMAGING: CT abdomen and pelvis as above. Chest x-ray as above. Head CT as above. MICROBIOLOGY: Blood culture and urine culture pending. Repeat coronavirus pending. IMPRESSION: 1. Severe Sepsis, source intra-abdominal . 2. Possible perforated viscus on CT. 3. Leukocytosis and lactic acidosis. 4. Acute kidney injury with underlying chronic renal insufficiency. 5. Metabolic acidosis. 6. Urinary tract infection. 7. Encephalopathy, likely from above. 8. Chronic right shoulder anterior dislocation. 9. Dementia. 10. History of congestive heart failure. 11. Spastic paralysis. 12. History of anxiety and depression. 13. prison resident. RECOMMENDATIONS: 1. Discontinue IV vancomycin. 2. Restart Zosyn. 3. Start micafungin and Zyvox. 4. General Surgery evaluating the patient. 5. Follow up labs and cultures. 6. Continue supportive care. 7. Critically ill. 8. Prognosis is very poor. Discussed with nursing staff. Thank you for allowing me to participate in this patient's care. If you have any questions, do not hesitate to contact me. LAYLA PALMER MD DR: BLUE/ramakrishna JOB#: [id number] / [id number] [place]
--- NOTE | 2020-06-24 16:07 | NUR ---
SS following for discharge planning. SS reviewed pt chart and discussed with RN. Pt is LTC resident from [place], ; fax [phone]. Referral received for comfort care. Per RN, pt is on Morphine drip. SS phoned and faxed referral to [facility], ; fax [phone], for inpatient hospice. SS will continue to follow for discharge planning.
[2020-06-24] MEDS ORDERED: GLYCOPYRROLATE 1 MG/5 ML VIAL. IV PRN ×2 (19:00)
[2020-06-24] MEDS ORDERED: BISACODYL 10 MG SUPP.RECT. PR PRN (19:45)
[2020-06-24] MEDS ORDERED: LORazepam INTENSOL 2 MG/ML ORAL.CONC SL PRN (19:45)
[2020-06-24] MEDS ORDERED: MORPHINE SULFATE 20 MG/ML CONC SOLUTION. SL PRN (19:45)
== END 2020-06-24 19:40 | disposition hospice, inpatient (51) | DRG 871 ==
LOC: ER 05:17 → 1 WEST ICU 09:13 → 5 NORTH 16:45
PROVIDERS: ADMIT Internal Medicine; ATTEND Internal Medicine
DX: A41.9 Sepsis, unspecified organism (principal); K63.1 Perforation of intestine (nontraumatic); R65.21 Severe sepsis with septic shock; G81.90 Hemiplegia, unspecified affecting unspecified side; G93.40 Encephalopathy, unspecified; I13.0 Hypertensive heart and chronic kidney disease with heart failure and stage 1 through stage 4 chronic kidney disease, or unspecified chronic kidney disease; J98.11 Atelectasis; N17.9 Acute kidney failure, unspecified; N39.0 Urinary tract infection, site not specified; E11.22 Type 2 diabetes mellitus with diabetic chronic kidney disease; E78.5 Hyperlipidemia, unspecified; F03.90 Unspecified dementia, unspecified severity, without behavioral disturbance, psychotic disturbance, mood disturbance, and anxiety; G93.89 Other specified disorders of brain; I25.10 Atherosclerotic heart disease of native coronary artery without angina pectoris; I50.9 Heart failure, unspecified; J44.9 Chronic obstructive pulmonary disease, unspecified; K80.20 Calculus of gallbladder without cholecystitis without obstruction; M81.0 Age-related osteoporosis without current pathological fracture; N18.9 Chronic kidney disease, unspecified; S43.014A Anterior dislocation of right humerus, initial encounter; Z66 Do not resuscitate; Z82.49 Family history of ischemic heart disease and other diseases of the circulatory system; Z83.3 Family history of diabetes mellitus; Z86.19 Personal history of other infectious and parasitic diseases; Z87.891 Personal history of nicotine dependence; F32.9 Major depressive disorder, single episode, unspecified; F41.9 Anxiety disorder, unspecified; K21.9 Gastro-esophageal reflux disease without esophagitis; M19.90 Unspecified osteoarthritis, unspecified site; Z88.8 Allergy status to other drugs, medicaments and biological substances; Z20.828 Contact with and (suspected) exposure to other viral communicable diseases
CPT/HCPCS: 36415; 36556; 70450; 71045; 74176; 80053; 80307; 80329; 81001; 82550; 82962; 83605; 83735; 83880; 84484; 85007; 85025; 85610; 85730; 87040; 87086; 87205; 87426; 93005; 96365; 96366; 96367; 99291; C9113; G0480; J2270; J2543; J3370; J3490; J7030; J7040; J7060; G0378; U0003-CS

== ENCOUNTER 2020-06-24 19:39 | Inpatient (IN) | payer OTHER ==
[2020-06-24] MEDS ORDERED: IV NORMAL SALINE 1000ML BAG 1,000 ML IV SCH (19:52)
[2020-06-24] MEDS ORDERED: BISACODYL 10 MG SUPP.RECT. PR PRN (20:00)
[2020-06-24] MEDS ORDERED: HALOPERIDOL 2 MG/ML ORAL.CONC. PO PRN (20:00)
[2020-06-24] MEDS ORDERED: NALOXONE 0.4 MG/ML VIAL. IV PRN (20:00)
[2020-06-24] MEDS ORDERED: MORPHINE SULFATE 30 ML IV PRN (20:00)
[2020-06-24] MEDS ORDERED: GLYCOPYRROLATE 1 MG/5 ML VIAL. IV PRN (20:00)
[2020-06-24 20:39] VITALS: BP 56/29
[2020-06-24] MEDS ORDERED: SCOPOLAMINE 1.5MG PATCH. TD SCH (21:00)
--- NOTE | 2020-06-25 01:59 | NUR ---
Around 1914 pt. came up from ICU on comfort care measures on a continuous Morphine gtt @ 2 mg/hr. Her hospice Nurse Kacie and her only daughter Ophelia was at her bedside. She was basically non-responsive w/agonal breathing. Around 2144 Morphine gtt. increased to 3 mg/hr per Hospice request for air hunger. Sadly to say @ 0 pt. w/ both her daughter Alyssia and Hospice nurse Kacie @ her side. , [facility] and [facility] [place] all notified 15-20 min. afterwards. She was not a donor candidate. Hidalgo and scopalamine patch removed. Evelyne had no belongings or valuables that needed to be sent w/ her. Pt.'s body taken down to the Morg[facility] around 0130 until home picks it up.
--- NOTE | 2020-07-01 13:48 | DS ---
DATE OF DISCHARGE: 06/24/2020 SUMMARY DATE OF : 06/24/2020. ADMISSION DIAGNOSIS: Perforated bowel with sepsis. CAUSE OF : Perforated bowel with sepsis. CONSULTS: Infectious Disease, Nephrology and General Surgery. PROCEDURES: None. HOSPITAL COURSE: The patient is a pleasant elderly female who was at [facility] and basically had dementia. She was well known to my service. She presented with severe sepsis. Her pressure was low in the 50s. She had recent COVID-19, but that had been a week or two ago. Imaging studies showed free air under the diaphragm. We admitted the patient. We consulted Dr. Tran, Dr. Tran called me and explained that the patient was not a candidate for surgery. She was too ill and I agreed. I spoke with the patient's daughter. She requested the patient be made comfort care. We titrated off the Levophed and stopped the antibiotics and gave her morphine. The patient very comfortably. BRITNI MARTINEZ DO DR: JEFF/ramakrishna JOB#: [id number] / [id number]
== END 2020-06-24 22:40 | disposition expired | DRG 871 ==
LOC: 5 NORTH 19:39
PROVIDERS: ADMIT Internal Medicine; ATTEND Internal Medicine
DX: A41.9 Sepsis, unspecified organism (principal); K63.1 Perforation of intestine (nontraumatic); F03.90 Unspecified dementia, unspecified severity, without behavioral disturbance, psychotic disturbance, mood disturbance, and anxiety; R65.20 Severe sepsis without septic shock; Z51.5 Encounter for palliative care; Z79.899 Other long term (current) drug therapy
CPT/HCPCS: J3490; J7030; G0378